=== PATIENT | male | born 1940 | race American Indian/Alaskan Native ===

== ENCOUNTER 2017-04-09 21:33 | Emergency (ER) | payer MEDICARE ==
[2017-04-09 21:51] VITALS: BP 147/81
--- NOTE | 2017-04-09 23:23 | Cat Scan Report ---
FINAL REPORT PROCEDURE: CT HEAD/BRAIN WO CON TECHNIQUE: Computerized tomography of the head was performed without contrast material. HISTORY: Syncope COMPARISON: No prior studies are available for comparison. FINDINGS: Skull and scalp: Left frontal matilda hole with ventriculostomy shunt catheter. There is occipital craniotomy. Paranasal sinuses: Normal. Ventricles and subarachnoid spaces: Moderate dilatation. Ventriculostomy shunt. Cerebrum: No evidence of hemorrhage, acute infarction or mass. Atrophy. Periventricular diminished density. Diminished density in the left frontal lobe surrounding shunt catheter. Basal ganglia calcifications Cerebellum and brainstem: Postoperative changes. There is calcification with adjacent 2.1 cm nodular region. Vasculature: Atherosclerotic calcifications. Comments: There is chronic right medial orbital blowout fracture through the lamina papyracea. IMPRESSION: Postoperative change. There is calcification and nodular density with possible residual or recurrent mass at the cerebellum. Correlation with prior studies and/or contrast enhanced MRI or CT recommended for further evaluation
--- NOTE | 2017-04-09 23:27 | Cat Scan Report ---
FINAL REPORT PROCEDURE: CT CERVICAL SPINE WO CON TECHNIQUE: Computerized tomography of the cervical spine was performed from the skull base to T1 without contrast material. HISTORY: fall/+loc/hematoma COMPARISON: No prior studies are available for comparison. FINDINGS: There is occipital craniotomy. There is postoperative change of the posterior arch of C1. There reversal of the cervical lordosis. There is grade 1 anterior listhesis at C7-T1. There is no acute fracture. C1-2: Arthritic change with spurring. C2-3: Disc bulge and spurring. Mild facet spurring. C3-4: Disc bulge and spurring.. C4-5: Disc space narrowing. Disc bulge and spurring. Uncovertebral spurring with left foraminal narrowing.. C5-6: Disc space narrowing with endplate change. Disc bulge and spurring. Uncovertebral spurring with bilateral foraminal narrowing. C6-7: Disc space narrowing with endplate change. Disc bulge and spurring. Uncovertebral spurring with bilateral foraminal narrowing. C7-T1: Disc space narrowing. Facet spurring. Bilateral foraminal narrowing. Other: Multiple thyroid nodules including with calcification. Atherosclerotic calcifications. Catheter in the soft tissues on the left. IMPRESSION: Cervical spondylosis. No acute fracture seen.
--- NOTE | 2017-04-09 23:37 | Cat Scan Report ---
FINAL REPORT PROCEDURE: CT FACIAL BONES WO CON TECHNIQUE: Computerized tomography of the facial bones and soft tissues with axial and coronal sections performed from the cranial aspect of the frontal sinuses to the caudal portion of the mandible without contrast material. HISTORY: fall/+loc/hematoma COMPARISON: No prior studies are available for comparison. FINDINGS: Bones: No acute fracture. Chronic appearing fracture of the medial wall of the right maxillary sinus through the lamina papyracea. Zygomatic arches are intact. Mandible is intact. Nasal bones intact.. Paranasal sinuses: Clear. Soft tissues: Frontal soft tissue swelling.. Other: None. IMPRESSION: No acute fracture. Chronic appearing medial orbital blowout fracture on the right. Soft tissue swelling.
--- NOTE | 2017-04-09 23:48 | Emergency Department Report ---
ED Fall HPI - General Chief Complaint: Head Injury Stated Complaint: LACERATION TO FACE Time Seen by Provider: 04/09/17 23:26 Source: patient, EMS Mode of arrival: Ambulatory - History of Present Illness Initial Comments: Patient is 76 years old male came for evaluation after he tripped and fell and hit his head ,patient denied any loss of consciousness complaining of forehead abrasion and nose pain. He denied any numbness or tingling sensation or focal weakness. No bowel or bladder dysfunction. MD Complaint: fall -: Sudden Fall From: standing Fall Witnessed: yes, by family Place Fall Occurred: home Loss of Consciousness: none Prolonged Down Time?: no Symptoms Prior to Fall: none Location: head, face Severity: moderate - Related Data Previous Rx's Medication Instructions Recorded Last Taken Type Cephalexin [Keflex] 500 mg PO BID #14 capsule 07/23/14 Unknown Rx Allergies Allergy/AdvReac Type Severity Reaction Status Date / Time No Known Allergies Allergy Unverified 07/22/14 23:26 ED Review of Systems ROS: Stated complaint: LACERATION TO FACE Other details as noted in HPI Comment: All other systems reviewed and negative Constitutional: denies: chills, fever Respiratory: denies: cough, orthopnea Cardiovascular: denies: chest pain, palpitations, syncope Gastrointestinal: denies: abdominal pain, nausea, vomiting, diarrhea, constipation, hematemesis ED Past Medical Hx - Past Medical History Previous Medical History?: Yes 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 - Surgical History Past Surgical History?: Yes Additional Surgical History: shunt in brain - Social History Smoking Status: Never Smoker Substance Use Type: None - Medications Home Medications: Home Medications Medication Instructions Recorded Confirmed Last Taken Type Cephalexin [Keflex] 500 mg PO BID #14 capsule 07/23/14 Unknown Rx ED Physical Exam - General Limitations: No Limitations General appearance: alert, in no apparent distress - Head Head exam: Present: other (abrasion to the forehead, 0.3 cm laceration to the middle of the nose.) - Eye Eye exam: Present: normal appearance, PERRL - ENT ENT exam: Present: normal exam - Neck Neck exam: Present: normal inspection, full ROM. Absent: tenderness, meningismus, lymphadenopathy, thyromegaly - Respiratory Respiratory exam: Present: normal lung sounds bilaterally. Absent: respiratory distress, wheezes, rales, rhonchi, stridor, chest wall tenderness, accessory muscle use, decreased breath sounds, prolonged expiratory - Cardiovascular Cardiovascular Exam: Present: regular rate, normal rhythm, normal heart sounds - GI/Abdominal GI/Abdominal exam: Present: soft, normal bowel sounds. Absent: distended, tenderness, guarding, rebound, rigid, diminished bowel sounds, organomegaly, mass, bruit, pulsatile mass, hernia - Extremities Exam Extremities exam: Present: normal inspection, full ROM, normal capillary refill. Absent: tenderness - Back Exam Back exam: Present: normal inspection, full ROM. Absent: tenderness, CVA tenderness (R), CVA tenderness (L), muscle spasm, paraspinal tenderness, vertebral tenderness - Neurological Exam Neurological exam: Present: alert, oriented X3, CN II-XII intact, normal gait, reflexes normal - Skin Skin exam: Present: warm, intact, normal color. Absent: cyanosis ED Course Vital Signs 04/09/17 04/09/17 21:43 22:00 Temperature 97.5 F L Pulse Rate 76 Respiratory 15 15 Rate Blood Pressure 147/81 O2 Sat by Pulse 97 99 Oximetry - Reevaluation(s) Reevaluation #1: 04/09/17 23:48 Patient is walking around in the ER in no acute distress. Critical care attestation.: If time is entered above; I have spent that time in minutes in the direct care of this critically ill patient, excluding procedure time. ED Disposition Clinical Impression: Head injury, Acute neck sprain Disposition: DC-01 TO HOME OR SELFCARE Is pt being admited?: No Condition: Stable Instructions: Minor Head Injury (ED), Fall Prevention (ED)
== END 2017-04-10 | disposition home or self-care (01) ==
LOC: ED 21:33
DX: S13.9XXA Sprain of joints and ligaments of unspecified parts of neck, initial encounter (principal); S09.90XA Unspecified injury of head, initial encounter; Z98.890 Other specified postprocedural states; W01.10XA Fall on same level from slipping, tripping and stumbling with subsequent striking against unspecified object, initial encounter; Y93.89 Activity, other specified; Y99.8 Other external cause status; Y92.098 Other place in other non-institutional residence as the place of occurrence of the external cause
CPT/HCPCS: 70450; 70486; 72125

== ENCOUNTER 2018-08-08 16:13 | Outpatient (CLI) | payer MEDICARE ==
[2018-08-08 17:04] LABS: Hematocrit 41.7 % (35.5-45.6); Hemoglobin 13.8 gm/dl (11.8-15.2); Mean Corpuscular HGB Conc 33 % (32-34); Mean Corpuscular Volume 92 fl (84-94); Platelet Count 159 K/mm3 (140-440); Red Blood Count 4.54 M/mm3 (3.65-5.03); Red Cell Distribution Width 13.2 % (13.2-15.2)
[2018-08-08 17:16] LABS: Alanine Aminotransferase 12 units/L (7-56); Albumin 4.2 g/dL (3.9-5); BUN/Creatinine Ratio 11; Blood Urea Nitrogen 11 mg/dL (9-20); Calcium 9.1 mg/dL (8.4-10.2); Chol/HDL Ratio 2.13 %; HDL Cholesterol 65 mg/dL (40-59); Hemolysis Index 6; LDL Cholesterol,Direct 83 mg/dL (50-130)
== END 2018-08-08 16:14 | disposition home or self-care (01) ==
LOC: LAB 16:13
PROVIDERS: ATTEND Internal Medicine
DX: Z00.01 Encounter for general adult medical examination with abnormal findings (principal); R73.9 Hyperglycemia, unspecified; R39.11 Hesitancy of micturition; R53.1 Weakness; R79.89 Other specified abnormal findings of blood chemistry
CPT/HCPCS: 36415; 80053; 80061; 82306; 82607; 83036; 84153; 84443; 85027

== ENCOUNTER 2019-02-24 19:59 | Emergency (ER) | payer MEDICARE ==
--- NOTE | 2019-02-24 20:33 | Emergency Department Report ---
Blank Doc - Documentation Documentation: 78-year-old male that presents with headache and dizziness with hx of [employer] shunt. Denies any trauma. This initial assessment/diagnostic orders/clinical plan/treatment(s) is/are subject to change based on patient's health status, clinical progression and re- assessment by fellow clinical providers in the ED. Further treatment and workup at subsequent clinical providers discretion. Patient/guardians urged not to elope from the ED as their condition may be serious if not clinically assessed and managed. Initial orders include: 1- Patient sent to MAIN ED for further evaluation and treatment 2- labs 3- CT head
[2019-02-24 20:34] VITALS: BP 117/78
[2019-02-24 21:00] LABS: Basophils % (Auto) 0.5 % (0.0-1.8); Eosinophils # (Auto) 0.1 K/mm3 (0.0-0.4); Eosinophils % (Auto) 1.5 % (0.0-4.3); Hematocrit 41.1 % (35.5-45.6); Hemoglobin 13.6 gm/dl (11.8-15.2); Lymphocytes % (Auto) 18.3 % (13.4-35.0); Mean Corpuscular HGB Conc 33 % (32-34); Mean Corpuscular Volume 91 fl (84-94); Monocytes # (Auto) 0.5 K/mm3 (0.0-0.8); Monocytes % (Auto) 9.6 % (0.0-7.3); Platelet Count 156 K/mm3 (140-440); Red Blood Count 4.53 M/mm3 (3.65-5.03); Red Cell Distribution Width 14.4 % (13.2-15.2)
[2019-02-24 21:24] LABS: Alanine Aminotransferase 15 units/L (7-56); BUN/Creatinine Ratio 16; Blood Urea Nitrogen 14 mg/dL (9-20); Calcium 9.1 mg/dL (8.4-10.2); Hemolysis Index 7
--- NOTE | 2019-02-24 22:18 | Cat Scan Report ---
CT HEAD WITHOUT CONTRAST INDICATION: headache and dizziness with hx of TENTERING MACHINE OFF BEARER shunt TECHNIQUE: Axial slices were obtained through the head. Coronal and sagittal reformatted images were obtained. COMPARISON: CT scan dated 04/09/2017 FINDINGS: There is no intracranial hemorrhage or extra-axial fluid collection. Ventricles appear mildly decreas ed in size when compared to the prior study from 2017 are normal in size and position on today's stud y. Ventriculostomy catheter is centrally unchanged. Calcifications in both basal ganglia are unchange d. There is no mass lesion or midline shift. No acute territorial infarct is identified. The appearan ce of the cerebellum with calcifications noted appears stable in the interval. There is a small area of encephalomalacia. Changes of prior posterior craniotomy Bone windows demonstrate no acute osseous abnormality. Paranasal sinuses and mastoid air cells appear clear. TECHNIQUE: All CT scans at this facility use dose modulation, iterative reconstruction, automated ex posure control, weight based dosing, when appropriate, to reduce radiation dose to as low as reasonab ly achievable. IMPRESSION: 1. No acute intracranial abnormality. TENTERING MACHINE OFF BEARER shunt catheter appears unchanged. Ventricular size size appe ars normal and mildly decreased from the prior study. Postoperative changes are noted in the cerebell um. Not mentioned above, There is again noted some irregular soft tissue in the midline of the posterior cerebellum. This may be related to the prior surgery. Possibility of residual nodule or mass in this location is considered in general this area appears decreased in size compared to the prior study. Signer Name: Bakari Godinez MD Signed: 02/24/2019 10:14 PM Workstation Name: [id number]
[2019-02-24] MEDS ORDERED: REGLAN PO ONE (22:23)
--- NOTE | 2019-02-24 22:26 | Emergency Department Report ---
ED General Adult HPI - General Chief complaint: Headache Stated complaint: HEADACHE Time Seen by Provider: 02/24/19 20:30 Source: patient, RN notes reviewed, old records reviewed Mode of arrival: Ambulatory Limitations: No Limitations - History of Present Illness Initial comments: This is a pleasant 78-year-old gentleman. This patient is not known to this provider previously. He has a history of BUSINESS PARTNER shunt. His BUSINESS PARTNER shunt was revised in August of this year, at [facility]. He does not know who did the surgery. He does not have a local primary care doctor. He presents to the ER with a complaint of headache and dizziness. The headache is occipital, and midline. It is present for over 24 hours. The headache is not sudden or thunderclap in nature. The headache is not maximal in intensity. He also describes a sensation of dizziness. He describes the dizziness as feeling unsteady. He denies vomiting, neck pain, neck stiffness and additional pain. He has no ocular complaints at this time. -: Gradual Location: head Radiation: non-radiation Quality: aching Consistency: intermittent Improves with: none Worsens with: none - Related Data Previous Rx's Medication Instructions Recorded Last Taken Type cephALEXin [Keflex] 500 mg PO BID #14 capsule 07/23/14 Unknown Rx Acetaminophen [Non-Aspirin Extra 500 mg PO Q6HR PRN #30 tablet 02/24/19 Unknown Rx Strength] Metoclopramide [Reglan] 10 mg PO QID PRN #30 tablet 02/24/19 Unknown Rx Allergies Allergy/AdvReac Type Severity Reaction Status Date / Time No Known Allergies Allergy Verified 02/24/19 20:01 ED Review of Systems ROS: Stated complaint: HEADACHE Other details as noted in HPI Constitutional: denies: malaise Eyes: denies: eye discharge, vision change ENT: denies: dental pain Respiratory: denies: wheezing Cardiovascular: denies: chest pain, syncope Gastrointestinal: denies: abdominal pain Neurological: headache. denies: weakness, numbness, paresthesias, confusion ED Past Medical Hx - Past Medical History Previous Medical History?: Yes 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 - Surgical History Past Surgical History?: Yes Additional Surgical History: shunt in brain - Social History Smoking Status: Never Smoker - Medications Home Medications: Home Medications Medication Instructions Recorded Confirmed Last Taken Type cephALEXin [Keflex] 500 mg PO BID #14 capsule 07/23/14 Unknown Rx Acetaminophen [Non-Aspirin Extra 500 mg PO Q6HR PRN #30 tablet 02/24/19 Unknown Rx Strength] Metoclopramide [Reglan] 10 mg PO QID PRN #30 tablet 02/24/19 Unknown Rx ED Physical Exam - General Limitations: No Limitations General appearance: alert, in no apparent distress - Head Head exam: Present: atraumatic, normocephalic - Eye Eye exam: Present: normal appearance, PERRL, EOMI, other (visual acuity intact to finger counting, color perception, reading at a close distance). Absent: nystagmus - ENT ENT exam: Present: normal exam, normal orophraynx, mucous membranes moist, normal external ear exam - Neck Neck exam: Present: normal inspection, full ROM. Absent: tenderness, meningismus - Respiratory Respiratory exam: Present: normal lung sounds bilaterally. Absent: respiratory distress - Cardiovascular Cardiovascular Exam: Present: regular rate, normal rhythm, normal heart sounds. Absent: bradycardia, tachycardia, irregular rhythm, systolic murmur, diastolic murmur, rubs, gallop - GI/Abdominal GI/Abdominal exam: Present: soft. Absent: distended, tenderness, guarding, rebound, rigid, pulsatile mass - Rectal Rectal exam: Present: deferred - Extremities Exam Extremities exam: Present: normal inspection, full ROM, other (2+ pulses noted in the bilateral upper, lower extremities. There is no long bone tenderness. Musculoskeletal compartments are soft. The pelvis is stable.). Absent: pedal edema, calf tenderness - Back Exam Back exam: Present: normal inspection, full ROM. Absent: tenderness, CVA tenderness (R), CVA tenderness (L), paraspinal tenderness, vertebral tenderness - Neurological Exam Neurological exam: Present: alert, oriented X3, normal gait (there is no past-pointing. There is normal [id number]. There is a negative pronator drift. There is normal gait. Patient able to tandem gait. There is a negative Romberg examination), other (there is no facial droop. The tongue is midline. Extraocular movements are intact bilaterally. Patient speaking in full com plete sentences. Shoulder shrug is intact bilaterally. Hearing is grossly intact bilaterally. Visual acuity intact to finger counting and color perception at a close distance. 5/5 strength 4 extremities. Sensation intact to light touch in 4 extremities.). Absent: motor sensory deficit - Psychiatric Psychiatric exam: Present: normal affect, normal mood - Skin Skin exam: Present: warm, dry, intact, normal color. Absent: rash ED Course Vital Signs 02/24/19 20:16 Temperature 97.9 F Pulse Rate 89 Respiratory 16 Rate Blood Pressure 117/78 O2 Sat by Pulse 100 Oximetry - Reevaluation(s) Reevaluation #1: 02/24/19 23:01 X-ray appears to be unremarkable. Sent appears to be in appropriate position. Patient is standing up, appears quite steady, and does not appear to be in any acute distress at this time. Reevaluation #2: 02/24/19 23:08 Old medical records are reviewed and appreciated. It appears that the patient's physician was Dr. Matti Ayala Apparently, he had an exploration of the proximal and distal shunt components. Reportedly, he is a patient of Dr. Bala Luong. 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 A right frontal BUSINESS PARTNER shunt was placed at an outside facility. He has been followed by Dr. Luong in the clinic and over the last months had been complaining of dizziness, mild headache and gait imbalance. A nuclear medicine shunt study was performed and showed probable sluggish flow within the distal shunt catheter, indicating a possible distal catheter malfunction. Patient declined surgery at that point. However, he subsequently return to the hospital over the weekend, a complaint of symptoms that were slightly worse. Imaging revealed stable ventricular size. At that point in time, the neurosurgeon of record had recommended shunt exploration and revision. With this in mind, the patient will be strongly counseled to follow up with his outpatient neurosurgeon for repeat evaluation. He walks with a steady gait, his exam is unremarkable, he is protecting his airway, and he is hemodynamically stable. Patient medically suitable to follow-up and an expedited fashion with his outpatient neurosurgeon. Reevaluation #3: 02/24/19 23:12 The patient reports that he feels much improved. He states he will follow-up with his neurosurgeon. X-ray appears to be unremarkable. ED Medical Decision Making - Lab Data Result diagrams: 02/24/19 20:37 02/24/19 20:37 Vital Signs 02/24/19 20:16 Temperature 97.9 F Pulse Rate 89 Respiratory 16 Rate Blood Pressure 117/78 O2 Sat by Pulse 100 Oximetry Lab Results 02/24/19 02/24/19 Range/Units 20:37 20:37 WBC 5.4 (4.5-11.0) K/mm3 RBC 4.53 (3.65-5.03) M/mm3 Hgb 13.6 (11.8-15.2) gm/dl Hct 41.1 (35.5-45.6) % MCV 91 (84-94) fl MCH 30 (28-32) pg MCHC 33 (32-34) % RDW 14.4 (13.2-15.2) % Plt Count 156 (140-440) K/mm3 Lymph % (Auto) 18.3 (13.4-35.0) % [place] % (Auto) 9.6 H (0.0-7.3) % Eos % (Auto) 1.5 (0.0-4.3) % Baso % (Auto) 0.5 (0.0-1.8) % Lymph # 1.0 L (1.2-5.4) K/mm3 [place] # 0.5 (0.0-0.8) K/mm3 Eos # 0.1 (0.0-0.4) K/mm3 Baso # 0.0 (0.0-0.1) K/mm3 Seg Neutrophils % 70.1 H (40.0-70.0) % Seg Neutrophils # 3.8 (1.8-7.7) K/mm3 Sodium 140 (137-145) mmol/L Potassium 4.3 (3.6-5.0) mmol/L Chloride 103.2 (98-107) mmol/L Carbon Dioxide 25 (22-30) mmol/L Anion Gap 16 mmol/L BUN 14 (9-20) mg/dL Creatinine 0.9 (0.8-1.5) mg/dL Estimated GFR > 60 ml/min BUN/Creatinine Ratio 16 % Glucose 94 (75-100) mg/dL Calcium 9.1 (8.4-10.2) mg/dL Total Bilirubin 0.40 (0.1-1.2) mg/dL AST 17 (5-40) units/L ALT 15 (7-56) units/L Alkaline Phosphatase 53 (35-129) units/L Troponin T < 0.010 (0.00-0.029) ng/mL Total Protein 7.2 (6.3-8.2) g/dL Albumin 4.0 (3.9-5) g/dL Albumin/Globulin Ratio 1.3 % - EKG Data -: EKG Interpreted by Fl EKG shows normal: sinus rhythm Rate: normal - EKG Data 02/24/19 22:31 EKG shows a sinus rhythm, 64 bpm, AL interval prolonged at 202 ms, there is left ventricular hypertrophy, there is poor all progression, the EKG is abnormal, the EKG is not consistent with ST elevation myocardial infarction. - Radiology Data Radiology results: pending, report reviewed, image reviewed Noncontrast CT scan of the brain is negative for acute disease, shows chronic findings. Print Report Referring Physician: YENI OREILLY Patient Name: ABBY DEVLIN Date of : 1940 Sex: Male Report Date: 2019-02-24 Report Status: Finalized Findings [facility] [address] [place] [address] Cat Scan Report Signed Patient: ABBY DEVLIN MR#: [id number] : 1940 Acct:[id number] Age/Sex: 78 / M ADM Date: 02/24/19 Loc: ED Attending Dr: Ordering Physician: YENI OREILLY NP Date of Service: 02/24/19 Procedure(s): CT head/brain wo con Accession Number(s): [id number] cc: YENI OREILLY NP CT HEAD WITHOUT CONTRAST INDICATION: headache and dizziness with hx of BUSINESS PARTNER shunt TECHNIQUE: Axial slices were obtained through the head. Coronal and sagittal reformatted images were obtained. COMPARISON: CT scan dated 04/09/2017 FINDINGS: There is no intracranial hemorrhage or extra-axial fluid collection. Ventricles appear mildly decreased in size when compared to the prior study from 2017 are normal in size and position on today's study. Ventriculostomy catheter is centrally unchanged. Calcifications in both basal ganglia are unchanged. There is no mass lesion or midline shift. No acute territorial infarct is identified. The appearance of the cerebellum with calcifications noted appears stable in the interval. There is a small area of encephalomalacia. Changes of prior posterior craniotomy Bone windows demonstrate no acute osseous abnormality. Paranasal sinuses and mastoid air cells appear clear. TECHNIQUE: All CT scans at this facility use dose modulation, iterative reconstruction, automated exposure control, weight based dosing, when appropriate, to reduce radiation dose to as low as reasonably achievable. IMPRESSION: 1. No acute intracranial abnormality. BUSINESS PARTNER shunt catheter appears unchanged. Ventricular size size appears normal and mildly decreased from the prior study. Postoperative changes are noted in the cerebellum. Not mentioned above, There is again noted some irregular soft tissue in the midline of the posterior cerebellum. This may be related to the prior surgery. Possibility of residual nodule or mass in this location is considered in general this area appears decreased in size compared to the prior study. Signer Name: Bakari Godinez MD Signed: 02/24/2019 10:14 PM Workstation Name: [id number] Transcribed By: SS Dictated By: Bakari Godinez MD Electronically Authenticated By: Bakari Godinez MD Signed Date/Time: 02/24/192213 DD/ 05 TD/TT: - Medical Decision Making Differential diagnosis, including but not limited to: Migraine headache, tension headache, cluster headache, BUSINESS PARTNER shunt malfunction, intracranial lesion Assessment and plan: 78-year-old gentleman with complaint of mild headache and subjective dizziness. He is afebrile with reassuring vital signs. He walks with a steady gait. He has no posterior circulation abnormalities that we can detect on physical examination. A noncontrast CT scan of the brain shows no acute or emergent findings. There is no evidence of obstructed BUSINESS PARTNER catheter. Screening laboratory studies are reviewed and appreciated, EKG is reviewed and appreciated. The patient is strongly encouraged to obtain expedited outpatient follow-up with his neurology specialist at [place]. Critical care attestation.: If time is entered above; I have spent that time in minutes in the direct care of this critically ill patient, excluding procedure time. ED Disposition Clinical Impression: BUSINESS PARTNER (ventriculoperitoneal) shunt status Headache Qualifiers: Headache type: unspecified Headache chronicity pattern: unspecified pattern Intractability: not intractable Qualified Code(s): R51 - Headache Disposition: DC-01 TO HOME OR SELFCARE Is pt being admited?: No Does the pt Need Aspirin: No Condition: Stable Additional Instructions: Continue outpatient medications. Recommend following up with your outpatient neurosurgeon as soon as possible at [facility]. Return to an emergency room right away with projectile vomiting, change in mental status, confusion, inability to tolerate liquid feeds, new, worsened or different symptoms not present on the initial emergency room evaluation. Patient may take the prescribed medications as needed and directed for sensation of headache and/or nausea, vomiting. Prescriptions: Acetaminophen [Non-Aspirin Extra Strength] 500 mg PO Q6HR PRN #30 tablet PRN Reason: Pain , Severe (7-10) Metoclopramide [Reglan] 10 mg PO QID PRN #30 tablet PRN Reason: Headache Referrals: MAGEN GUERRERO MD [Staff Physician] - 3-5 Days DORIE SARKAR MD [Staff Physician] - 3-5 Days
--- NOTE | 2019-02-24 23:12 | XRay Report ---
CHEST 1 VIEW INDICATION / CLINICAL INFORMATION: second vp hr assessment shunt assess position. COMPARISON: None available. FINDINGS: SUPPORT DEVICES: None. HEART / MEDIASTINUM: No significant abnormality. LUNGS / PLEURA: No acute cardiopulmonary abnormality. The left-sided ENVIR[employer]MENT[employer] DESIGNER shunt projects over the left hemithorax. No disruption appreciated. Signer Name: Moreno Diaz MD Signed: 02/24/2019 11:07 PM Workstation Name: [id number]
--- NOTE | 2019-02-24 23:14 | XRay Report ---
Abdomen single view INDICATION: Abdominal pain IMPRESSION: The AUDIOVISUAL TECH shunt terminates near the region of the esophageal hiatus within the far upper abd omen. Signer Name: Moreno Diaz MD Signed: 02/24/2019 11:09 PM Workstation Name: [id number]
== END 2019-02-24 23:18 | disposition home or self-care (01) ==
LOC: ED 19:59
DX: R51 Headache (principal); R42 Dizziness and giddiness; Z98.2 Presence of cerebrospinal fluid drainage device
CPT/HCPCS: 36415; 70450; 71045; 74018; 80053; 84484; 85025; 93005; 93010

== ENCOUNTER 2019-09-12 16:49 | Emergency (ER) | payer MEDICARE ==
--- NOTE | 2019-09-12 17:35 | XRay Report ---
Chest 2 views INDICATION: Dyspnea IMPRESSION: No acute cardiopulmonary abnormality. 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 Signer Name: Moreno Diaz MD Signed: 09/12/2019 5:30 PM Workstation Name: [id number]
[2019-09-12 17:44] LABS: Basophils # (Auto) 0.1 K/mm3 (0.0-0.1); Basophils % (Auto) 1.4 % (0.0-1.8); Eosinophils # (Auto) 0.1 K/mm3 (0.0-0.4); Eosinophils % (Auto) 1.9 % (0.0-4.3); Hematocrit 43.7 % (35.5-45.6); Hemoglobin 14.3 gm/dl (11.8-15.2); Lymphocytes % (Auto) 22.8 % (13.4-35.0); Mean Corpuscular HGB Conc 33 % (32-34); Mean Corpuscular Volume 92 fl (84-94); Monocytes # (Auto) 0.3 K/mm3 (0.0-0.8); Monocytes % (Auto) 7.5 % (0.0-7.3); Platelet Count 154 K/mm3 (140-440); Red Blood Count 4.75 M/mm3 (3.65-5.03); Red Cell Distribution Width 13.6 % (13.2-15.2)
[2019-09-12 18:04] LABS: Alanine Aminotransferase 13 units/L (7-56); Albumin 4.2 g/dL (3.9-5); BUN/Creatinine Ratio 12; Blood Urea Nitrogen 11 mg/dL (9-20); Calcium 9.7 mg/dL (8.4-10.2); Hemolysis Index 10
--- NOTE | 2019-09-12 19:26 | Emergency Department Report ---
ED General Adult HPI - General Chief complaint: Dyspnea/Respdistress Stated complaint: FEVER/CHEST TIGHT/DISORIENTED Time Seen by Provider: 09/12/19 18:17 Source: patient Mode of arrival: Ambulatory Limitations: No Limitations - History of Present Illness Initial comments: Patient is a 78-year-old male who presents the emergency room with complaints of "concerns about COVID-19." He states this morning when he woke up he felt fatigue and some mild chest congestion. He states he believes he is just having some mild symptoms. He denies any fever, nausea, vomiting, diarrhea, chest pain, shortness of breath, leg swelling. He denies any recent travel, recent surgery, sick contacts. He states that he feels asymptomatic currently and feels much better than he did this morning. 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 He denies any issues with his [employer] shunt. He denies any allergies to medications. He is a former smoker and quit in 1982. - Related Data Previous Rx's Medication Instructions Recorded Last Taken Type cephALEXin [Keflex] 500 mg PO BID #14 capsule 07/23/14 Unknown Rx Acetaminophen [Non-Aspirin Extra 500 mg PO Q6HR PRN #30 tablet 02/24/19 Unknown Rx Strength] Metoclopramide [Reglan] 10 mg PO QID PRN #30 tablet 02/24/19 Unknown Rx Allergies Allergy/AdvReac Type Severity Reaction Status Date / Time No Known Allergies Allergy Verified 09/12/19 17:00 ED Review of Systems ROS: Stated complaint: FEVER/CHEST TIGHT/DISORIENTED Other details as noted in HPI Comment: All other systems reviewed and negative ED Past Medical Hx - Past Medical History Previous Medical History?: Yes 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 - Surgical History Past Surgical History?: Yes Additional Surgical History: shunt in brain - Social History Smoking Status: Never Smoker Substance Use Type: None - Medications Home Medications: Home Medications Medication Instructions Recorded Confirmed Last Taken Type cephALEXin [Keflex] 500 mg PO BID #14 capsule 07/23/14 Unknown Rx Acetaminophen [Non-Aspirin Extra 500 mg PO Q6HR PRN #30 tablet 02/24/19 Unknown Rx Strength] Metoclopramide [Reglan] 10 mg PO QID PRN #30 tablet 02/24/19 Unknown Rx ED Physical Exam - General Limitations: No Limitations General appearance: alert, in no apparent distress - Head Head exam: Present: atraumatic, normocephalic - Eye Eye exam: Present: normal appearance - ENT ENT exam: Present: mucous membranes moist - Respiratory Respiratory exam: Present: normal lung sounds bilaterally. Absent: respiratory distress, wheezes, rales, rhonchi, stridor, chest wall tenderness, accessory muscle use, decreased breath sounds, prolonged expiratory - Cardiovascular Cardiovascular Exam: Present: regular rate, normal rhythm, normal heart sounds. Absent: systolic murmur, diastolic murmur, rubs, gallop - Neurological Exam Neurological exam: Present: alert, oriented X3 - Psychiatric Psychiatric exam: Present: normal affect, normal mood - Skin Skin exam: Present: warm, dry, intact ED Course Vital Signs 09/12/19 09/12/19 17:00 19:51 Temperature 97.7 F 97.5 F L Pulse Rate 73 69 Respiratory 13 18 Rate Blood Pressure 124/76 Blood Pressure 129/67 [Right] O2 Sat by Pulse 100 99 Oximetry ED Medical Decision Making - Lab Data Result diagrams: 09/12/19 17:25 09/12/19 17:25 - Radiology Data Radiology results: report reviewed Chest 2 views INDICATION: Dyspnea IMPRESSION: No acute cardiopulmonary abnormality. [employer] shunt noted tracking along the left chest region. Signer Name: Moreno Diaz MD Signed: 09/12/2019 5:30 PM Workstation Name: [id number] Transcribed By: Dictated By: Moreno Diaz MD Electronically Authenticated By: Moreno Diaz MD Signed Date/Time: 09/12/191729 DD/ 29 TD/TT: - Medical Decision Making Patient is a 78-year-old male who presents the emergency room with complaints of "concerns about COVID-19." He states this morning when he woke up he felt fatigue and some mild chest congestion. He states he believes he is just having some mild symptoms. He denies any fever, nausea, vomiting, diarrhea, chest pain, shortness of breath, leg swelling. He denies any recent travel, recent surgery, sick contacts. He states that he feels asymptomatic currently and feels much better than he did this morning. 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 He denies any issues with his [employer] shunt. He denies any allergies to medications. He is a former smoker and quit in 1982. Vitals are normal. Patient was ambulated in the emergency department and maintain sats above 95% on room air. No abnormality on physical examination as documented in chart. Breath sounds are clear bilaterally. Labs are more normal. Chest x-ray with no acute process. Low risk based on Wells criteria for PE. advised pt May take Robitussin or M ucinex as needed for congestion. Increase your fluid intake over the next several days. May drink warm tea and eat warm soup broth. Follow-up with your primary care doctor in the next 2 to 3 days for reexamination. Return to the emergency room immediately or call 911 for any new or worsening symptoms including but not limited to chest pain, shortness of breath, difficulty breathing, high fever, unable to tolerate by mouth intake, confusion, dizziness, etc. please discuss with your primary care doctor about receiving COVID-19 testing. Please self quarantine for 2 weeks. Please do not go out in public. If you are at home around others please wear a mask. If you need to cough or sneeze please do so in a napkin and throw it away and immediately wash your hands. Wash your hands frequently. Wipe everything down. Critical care attestation.: If time is entered above; I have spent that time in minutes in the direct care of this critically ill patient, excluding procedure time. ED Disposition Clinical Impression: Chest congestion Fatigue Qualifiers: Fatigue type: unspecified Qualified Code(s): R53.83 - Other fatigue Disposition: DC-01 TO HOME OR SELFCARE Is pt being admited?: No Does the pt Need Aspirin: No Condition: Stable Instructions: COVID-19, Viral Syndrome (ED) Additional Instructions: May take Robitussin or Mucinex as needed for congestion. Increase your fluid intake over the next several days. May drink warm tea and eat warm soup broth. Follow-up with your primary care doctor in the next 2 to 3 days for reexamination. Return to the emergency room immediately or call 911 for any new or worsening symptoms including but not limited to chest pain, shortness of molly ath, difficulty breathing, high fever, unable to tolerate by mouth intake, confusion, dizziness, etc. please discuss with your primary care doctor about receiving COVID-19 testing. Please self quarantine for 2 weeks. Please do not go out in public. If you are at home around others please wear a mask. If you need to cough or sneeze please do so in a napkin and throw it away and immediately wash your hands. Wash your hands frequently. Wipe everything down. Referrals: TRISHA OSMAN MD [Primary Care Provider] - 2-3 Days Time of Disposition: 19:24 Print Language: EQUATORIAL GUINEAN
[2019-09-12 19:52] VITALS: BP 129/67
== END 2019-09-12 19:52 | disposition home or self-care (01) ==
LOC: ED 16:49
DX: R09.81 Nasal congestion (principal); R53.83 Other fatigue; Z79.899 Other long term (current) drug therapy
CPT/HCPCS: 36415; 71046; 80053; 85025

== ENCOUNTER 2020-06-16 11:39 | Outpatient (CLI) | payer MEDICARE ==
[2020-06-16 12:12] LABS: Basophils % (Auto) 0.8 % (0.0-1.8); Eosinophils # (Auto) 0.1 K/mm3 (0.0-0.4); Eosinophils % (Auto) 2.3 % (0.0-4.3); Hematocrit 40.3 % (35.5-45.6); Hemoglobin 13.3 gm/dl (11.8-15.2); Lymphocytes % (Auto) 23.2 % (13.4-35.0); Mean Corpuscular HGB Conc 33 % (32-34); Mean Corpuscular Volume 93 fl (84-94); Monocytes # (Auto) 0.4 K/mm3 (0.0-0.8); Monocytes % (Auto) 10.6 % (0.0-7.3); Platelet Count 155 K/mm3 (140-440); Red Blood Count 4.35 M/mm3 (3.65-5.03); Red Cell Distribution Width 13.5 % (13.2-15.2)
[2020-06-16 12:35] LABS: Alanine Aminotransferase 11 units/L (7-56); Albumin 3.9 g/dL (3.9-5); BUN/Creatinine Ratio 14; Blood Urea Nitrogen 11 mg/dL (9-20); HDL Cholesterol 65 mg/dL (40-59); Hemolysis Index 5; LDL Cholesterol,Direct 75 mg/dL (50-130)
== END 2020-06-16 11:40 | disposition home or self-care (01) ==
LOC: LAB 11:39
PROVIDERS: ATTEND Internal Medicine
DX: E55.9 Vitamin D deficiency, unspecified (principal); R73.9 Hyperglycemia, unspecified; Z13.29 Encounter for screening for other suspected endocrine disorder; Z13.220 Encounter for screening for lipoid disorders; E07.9 Disorder of thyroid, unspecified; E78.5 Hyperlipidemia, unspecified
CPT/HCPCS: 36415; 80053; 80061; 82652; 83036; 84443; 85025

== ENCOUNTER 2021-06-05 20:16 | Inpatient (IN) | payer MEDICARE ==
[2021-06-05] MEDS ORDERED: levETIRAcetam 2,000 MG in DEXTROSE 5% IN WATER 100 ML IV ONE (20:21)
[2021-06-05] MEDS ORDERED: SODIUM CHLORIDE 0.9% 500 ML 500 ML IV ONE (20:21)
--- NOTE | 2021-06-05 21:00 | Cat Scan Report ---
CT head/brain wo con INDICATION / CLINICAL INFORMATION: 80 years Male; Stroke symptoms. TECHNIQUE: Routine CT head without contrast. All CT scans at this location are performed using CT dos e reduction for ALARA by means of automated exposure control. Motion artifact present. COMPARISON: 02/24/2019 FINDINGS: BRAIN / INTRACRANIAL CONTENTS: Ventricular catheter is seen entering the calvarium via left frontal a pproach with distal tip projecting into the frontal horn of the left lateral ventricle. Similar findi ngs seen on prior. Ventricular system is slightly increased in size from prior, but remains within no rmal limits. 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 Craniotom y site is seen in the occipital region as well. Please clinically correlate. Otherwise, no acute hemorrhage, mass effect, midline shift, hydrocephalus, or acute, large territori al infarct. No signs of significant atrophy or chronic infarct. Minimal, nonspecific white matter dis ease suggested. Some component of pontine disease may be present as well. CRANIOCERVICAL JUNCTION: No significant abnormality. ORBITS: No significant abnormality of visualized orbits. SINUSES / MASTOIDS: Mild to moderate mucosal thickening seen in the left maxillary antrum. ADDITIONAL FINDINGS: None. IMPRESSION: 1. No focal mass, hemorrhage, hydrocephalus, or acute, large territorial infarct. Follow-up with diff usion imaging by MRI, as clinically warranted. Signer Name: Manuel Harrison MD, III Signed: 06/05/2021 8:56 PM Workstation Name: [email or web address]
--- NOTE | 2021-06-05 21:04 | Emergency Department Report ---
HPI - General Time Seen by Provider: 06/05/21 20:20 - HPI HPI: 80-year-old -Citizen Of [place] male presents to the emergency department via EMS from home with concern for sudden alteration in mental status. Patient does have a history of a brain mass with subsequent surgery done in February of last year at [facility]. Since the time of that surgery the patient has been having some instability with ambulation, some mild slurred speech, and gets food and medication through a PEG tube. However at baseline, prior to this afternoon, the patient is normally awake, alert, oriented, AAO x3 and able to assist with some of his ADLs. Patient son says that the patient went for a nap late this afternoon and when he checked on him he was not responding. I different points he says that his eyes were open but essentially was unresponsive which is what prompted him to call for EMS. 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 - Surgical History Additional Surgical History: shunt in brain - Social History Smoking Status: Never Smoker Substance Use Type: None - Medications Home Medications: Home Medications Medication Instructions Recorded Confirmed Last Taken Type cephALEXin [Keflex] 500 mg PO BID #14 capsule 07/23/14 Unknown Rx Acetaminophen [Non-Aspirin Extra 500 mg PO Q6HR PRN #30 tablet 02/24/19 Unknown Rx Strength] Metoclopramide [Reglan] 10 mg PO QID PRN #30 tablet 02/24/19 Unknown Rx ED Review of Systems ROS: Stated complaint: POSS STROKE Other details as noted in HPI Comment: Unobtainable due to pts medical conditions Physical Exam - Physical Exam Physical Exam: GENERAL: The patient is ill-appearing. HENT: Normocephalic. Atraumatic. Patient has moist mucous membranes. EYES: Extraocular motions are intact. Pupils equal reactive to light mariluz aterally. NECK: Supple. Trachea is midline. CHEST/LUNGS: Coarse breath sound and rhonchi heard. There is moderate tachypnea and a productive sounding cough heard. HEART/CARDIOVASCULAR: Regular. There is moderate tachycardia. There is no murmur. ABDOMEN: Abdomen is soft, nontender. Patient has normal bowel sounds. There is no abdominal distention. SKIN: Skin is warm and dry. NEURO: Patient is awake but confused. Follows a few commands. Nonverbal. Withdraws from painful stimuli to the upper extremities. Initially no movement of the lower extremities against gravity. Bilateral upper extremity drift. MUSCULOSKELETAL: There is no tenderness or deformity. - Central Line Placement Right Femoral Consent Obtained: verbal consent (From patient's daughter Adriana), emergent situation Time Out Performed: Yes Patient Placed on Monitor/Pulse Ox: Yes Prep: mask, gown, gloves Central Line Prep: Chlorhexidine scrub Local Anesthesia Used: Lidocaine 1% Amount of Anesthesia Used (mls): 3 Ultrasound Used for Placement: Yes Central Line Lumen Inserted: triple Reason for Insertion: Volume Resuscitation Central Line Position: good blood return, all ports aspirated, flus, sutured in place with nyl Dressing Applied: Tegaderm, sterile gauze/tape Patient Tolerated Procedure: well Complications: none ED Medical Decision Making - Lab Data Result diagrams: 06/05/21 20:35 06/05/21 20:35 Lab Results 06/05/21 06/05/21 06/05/21 Range/Units 20:21 20:35 20:35 WBC 13.6 H (4.5-11.0) K/mm3 RBC 4.12 (3.65-5.03) M/mm3 Hgb 10.7 L (11.8-15.2) gm/dl Hct 35.9 (35.5-45.6) % MCV 87 (84-94) fl MCH 26 L (28-32) pg MCHC 30 L (32-34) % RDW 16.9 H (13.2-15.2) % Plt Count 287 (140-440) K/mm3 Lymph % (Auto) Make Up Arranger [place] % (Auto) Make Up Arranger Eos % (Auto) Make Up Arranger Baso % (Auto) Make Up Arranger Lymph # (Auto) Make Up Arranger [place] # (Auto) Make Up Arranger Eos # (Auto) Make Up Arranger Baso # (Auto) Make Up Arranger Add Manual Diff Complete Total Counted 100 Seg Neutrophils % Make Up Arranger Seg Neuts % (Manual) 76.0 H (40.0-70.0) % Band Neutrophils % 21.0 % Lymphocytes % (Manual) 1.0 L (13.4-35.0) % Reactive Lymphs % (Man) 0 % Monocytes % (Manual) 0 (0.0-7.3) % Eosinophils % (Manual) 0 (0.0-4.3) % Basophils % (Manual) 0 (0.0-1.8) % Metamyelocytes % 0 % Myelocytes % 2.0 % Promyelocytes % 0 % Blast Cells % 0 % Nucleated RBC % Not Reportable Seg Neutrophils # Make Up Arranger Seg Neutrophils # Man 10.3 H (1.8-7.7) K/mm3 Band Neutrophils # 2.9 K/mm3 Lymphocytes # (Manual) 0.1 L (1.2-5.4) K/mm3 Abs React Lymphs (Man) 0.0 K/mm3 Monocytes # (Manual) 0.0 (0.0-0.8) K/mm3 Eosinophils # (Manual) 0.0 (0.0-0.4) K/mm3 Basophils # (Manual) 0.0 (0.0-0.1) K/mm3 Metamyelocytes # 0.0 K/mm3 Myelocytes # 0.3 K/mm3 Promyelocytes # 0.0 K/mm3 Blast Cells # 0.0 K/mm3 WBC Morphology Not Reportable Hypersegmented Neuts Not Reportable Hyposegmented Neuts Not Reportable Hypogranular Neuts Not Reportable Smudge Cells Not Reportable Toxic Granulation Not Reportable Toxic Vacuolation Not Reportable Dohle Bodies Not Reportable Pelger-Huet Anomaly Not Reportable Pasha Rods Not Reportable Platelet Estimate Consistent w auto Clumped Platelets Not Reportable Plt Clumps, EDTA Not Reportable Large Platelets Not Reportable Giant Platelets Not Reportable Platelet Satelliting Not Reportable Plt Morphology Comment Not Reportable RBC Morphology Not Reportable Dimorphic RBCs Not Reportable Polychromasia Not Reportable Hypochromasia 1+ Poikilocytosis 1+ Anisocytosis Not Reportable Microcytosis Not Reportable Macrocytosis Not Reportable Spherocytes Not Reportable Pappenheimer Bodies Not Reportable Sickle Cells Not Reportable Target Cells Few Tear Drop Cells Not Reportable Ovalocytes Not Reportable Helmet Cells Not Reportable Henry-Whitharral Bodies Not Reportable [place] Rings Not Reportable Josue Cells Not Reportable Bite Cells Not Reportable Crenated Cell Not Reportable Elliptocytes Not Reportable Acanthocytes (Spur) Few Rouleaux Not Reportable Hemoglobin C Crystals Not Reportable Schistocytes Rare Malaria parasites Not Reportable Lázaro Bodies Not Reportable Hem Pathologist Commnt No PT 16.9 H (12.2-14.9) Sec. INR 1.24 H (0.87-1.13) APTT 32.1 (24.2-36.6) Sec. Thrombin Time 19.7 H (15.1-19.6) Sec. D-Dimer (0-234) ng/mlDDU Sodium (137-145) mmol/L Potassium (3.6-5.0) mmol/L Chloride (98-107) mmol/L Carbon Dioxide (22-30) mmol/L Anion Gap mmol/L BUN (9-20) mg/dL Creatinine (0.8-1.3) mg/dL Estimated GFR ml/min BUN/Creatinine Ratio % Glucose (75-100) mg/dL POC Glucose 92 (70-105) mg/dL Lactic Acid (0.7-2.0) mmol/L Calcium (8.4-10.2) mg/dL Ferritin (30.0-300.0) ng/mL Total Bilirubin (0.1-1.2) mg/dL AST (5-40) units/L ALT (7-56) units/L Alkaline Phosphatase (35-129) units/L Lactate Dehydrogenase (91-180) units/L Total Creatine Kinase (55-170) units/L CK-MB (CK-2) (0.0-4.0) ng/mL CK-MB (CK-2) Rel Index (0-4) Troponin T (0.00-0.029) ng/mL C-Reactive Protein (0.00-1.30) mg/dL NT-Pro-B Natriuret Pep (0-900) pg/mL Total Protein (6.3-8.2) g/dL Albumin (3.9-5) g/dL Albumin/Globulin Ratio % Plasma/Serum Alcohol (0-0.07) % Blood Type Antibody Screen 06/05/21 06/05/21 06/05/21 Range/Units 20:35 20:35 20:35 WBC (4.5-11.0) K/mm3 RBC (3.65-5.03) M/mm3 Hgb (11.8-15.2) gm/dl Hct (35.5-45.6) % MCV (84-94) fl MCH (28-32) pg MCHC (32-34) % RDW (13.2-15.2) % Plt Count (140-440) K/mm3 Lymph % (Auto) [place] % (Auto) Eos % (Auto) Baso % (Auto) Lymph # (Auto) [place] # (Auto) Eos # (Auto) Baso # (Auto) Add Manual Diff Total Counted Seg Neutrophils % Seg Neuts % (Manual) (40.0-70.0) % Band Neutrophils % % Lymphocytes % (Manual) (13.4-35.0) % Reactive Lymphs % (Man) % Monocytes % (Manual) (0.0-7.3) % Eosinophils % (Manual) (0.0-4.3) % Basophils % (Manual) (0.0-1.8) % Metamyelocytes % % Myelocytes % % Promyelocytes % % Blast Cells % % Nucleated RBC % Seg Neutrophils # Seg Neutrophils # Man (1.8-7.7) K/mm3 Band Neutrophils # K/mm3 Lymphocytes # (Manual) (1.2-5.4) K/mm3 Abs React Lymphs (Man) K/mm3 Monocytes # (Manual) (0.0-0.8) K/mm3 Eosinophils # (Manual) (0.0-0.4) K/mm3 Basophils # (Manual) (0.0-0.1) K/mm3 Metamyelocytes # K/mm3 Myelocytes # K/mm3 Promyelocytes # K/mm3 Blast Cells # K/mm3 WBC Morphology Hypersegmented Neuts Hyposegmented Neuts Hypogranular Neuts Smudge Cells Toxic Granulation Toxic Vacuolation Dohle Bodies Pelger-Huet Anomaly Pasha Rods Platelet Estimate Clumped Platelets Plt Clumps, EDTA Large Platelets Giant Platelets Platelet Satelliting Plt Morphology Comment RBC Morphology Dimorphic RBCs Polychromasia Hypochromasia Poikilocytosis Anisocytosis Microcytosis Macrocytosis Spherocytes Pappenheimer Bodies Sickle Cells Target Cells Tear Drop Cells Ovalocytes Helmet Cells Henry-Whitharral Bodies [place] Rings Josue Cells Bite Cells Crenated Cell Elliptocytes Acanthocytes (Spur) Rouleaux Hemoglobin C Crystals Schistocytes Malaria parasites Lázaro Bodies Hem Pathologist Commnt PT (12.2-14.9) Sec. INR (0.87-1.13) APTT (24.2-36.6) Sec. Thrombin Time (15.1-19.6) Sec. D-Dimer (0-234) ng/mlDDU Sodium 141 (137-145) mmol/L Potassium 5.4 H (3.6-5.0) mmol/L Chloride 105.5 (98-107) mmol/L Carbon Dioxide 24 (22-30) mmol/L Anion Gap 17 mmol/L BUN 30 H (9-20) mg/dL Creatinine 0.9 (0.8-1.3) mg/dL Estimated GFR > 60 ml/min BUN/Creatinine Ratio 33 % Glucose 87 (75-100) mg/dL POC Glucose (70-105) mg/dL Lactic Acid (0.7-2.0) mmol/L Calcium 9.0 (8.4-10.2) mg/dL Ferritin (30.0-300.0) ng/mL Total Bilirubin 0.50 (0.1-1.2) mg/dL AST 54 H (5-40) units/L ALT 36 (7-56) units/L Alkaline Phosphatase 52 (35-129) units/L Lactate Dehydrogenase (91-180) units/L Total Creatine Kinase 149 (55-170) units/L CK-MB (CK-2) 1.4 (0.0-4.0) ng/mL CK-MB (CK-2) Rel Index 0.9 (0-4) Troponin T 0.012 (0.00-0.029) ng/mL C-Reactive Protein (0.00-1.30) mg/dL NT-Pro-B Natriuret Pep (0-900) pg/mL Total Protein 7.1 (6.3-8.2) g/dL Albumin 2.4 L (3.9-5) g/dL Albumin/Globulin Ratio 0.5 % Plasma/Serum Alcohol < 0.01 (0-0.07) % Blood Type AB POSITIVE Antibody Screen Negative 06/05/21 06/05/21 06/05/21 Range/Units 20:35 21:42 21:42 WBC (4.5-11.0) K/mm3 RBC (3.65-5.03) M/mm3 Hgb (11.8-15.2) gm/dl Hct (35.5-45.6) % MCV (84-94) fl MCH (28-32) pg MCHC (32-34) % RDW (13.2-15.2) % Plt Count (140-440) K/mm3 Lymph % (Auto) [place] % (Auto) Eos % (Auto) Baso % (Auto) Lymph # (Auto) [place] # (Auto) Eos # (Auto) Baso # (Auto) Add Manual Diff Total Counted Seg Neutrophils % Seg Neuts % (Manual) (40.0-70.0) % Band Neutrophils % % Lymphocytes % (Manual) (13.4-35.0) % Reactive Lymphs % (Man) % Monocytes % (Manual) (0.0-7.3) % Eosinophils % (Manual) (0.0-4.3) % Basophils % (Manual) (0.0-1.8) % Metamyelocytes % % Myelocytes % % Promyelocytes % % Blast Cells % % Nucleated RBC % Seg Neutrophils # Seg Neutrophils # Man (1.8-7.7) K/mm3 Band Neutrophils # K/mm3 Lymphocytes # (Manual) (1.2-5.4) K/mm3 Abs React Lymphs (Man) K/mm3 Monocytes # (Manual) (0.0-0.8) K/mm3 Eosinophils # (Manual) (0.0-0.4) K/mm3 Basophils # (Manual) (0.0-0.1) K/mm3 Metamyelocytes # K/mm3 Myelocytes # K/mm3 Promyelocytes # K/mm3 Blast Cells # K/mm3 WBC Morphology Hypersegmented Neuts Hyposegmented Neuts Hypogranular Neuts Smudge Cells Toxic Granulation Toxic Vacuolation Dohle Bodies Pelger-Huet Anomaly Pasha Rods Platelet Estimate Clumped Platelets Plt Clumps, EDTA Large Platelets Giant Platelets Platelet Satelliting Plt Morphology Comment RBC Morphology Dimorphic RBCs Polychromasia Hypochromasia Poikilocytosis Anisocytosis Microcytosis Macrocytosis Spherocytes Pappenheimer Bodies Sickle Cells Target Cells Tear Drop Cells Ovalocytes Helmet Cells Henry-Whitharral Bodies [place] Rings Josue Cells Bite Cells Crenated Cell Elliptocytes Acanthocytes (Spur) Rouleaux Hemoglobin C Crystals Schistocytes Malaria parasites Lázaro Bodies Hem Pathologist Commnt PT (12.2-14.9) Sec. INR (0.87-1.13) APTT (24.2-36.6) Sec. Thrombin Time (15.1-19.6) Sec. D-Dimer 2087.18 H (0-234) ng/mlDDU Sodium (137-145) mmol/L Potassium (3.6-5.0) mmol/L Chloride (98-107) mmol/L Carbon Dioxide (22-30) mmol/L Anion Gap mmol/L BUN (9-20) mg/dL Creatinine (0.8-1.3) mg/dL Estimated GFR ml/min BUN/Creatinine Ratio % Glucose (75-100) mg/dL POC Glucose (70-105) mg/dL Lactic Acid 3.10 H* (0.7-2.0) mmol/L Calcium (8.4-10.2) mg/dL Ferritin (30.0-300.0) ng/mL Total Bilirubin (0.1-1.2) mg/dL AST (5-40) units/L ALT (7-56) units/L Alkaline Phosphatase (35-129) units/L Lactate Dehydrogenase 167 (91-180) units/L Total Creatine Kinase (55-170) units/L CK-MB (CK-2) (0.0-4.0) ng/mL CK-MB (CK-2) Rel Index (0-4) Troponin T (0.00-0.029) ng/mL C-Reactive Protein 6.00 H (0.00-1.30) mg/dL NT-Pro-B Natriuret Pep 674.6 (0-900) pg/mL Total Protein (6.3-8.2) g/dL Albumin (3.9-5) g/dL Albumin/Globulin Ratio % Plasma/Serum Alcohol (0-0.07) % Blood Type Antibody Screen 06/05/21 Range/Units 21:42 WBC (4.5-11.0) K/mm3 RBC (3.65-5.03) M/mm3 Hgb (11.8-15.2) gm/dl Hct (35.5-45.6) % MCV (84-94) fl MCH (28-32) pg MCHC (32-34) % RDW (13.2-15.2) % Plt Count (140-440) K/mm3 Lymph % (Auto) [place] % (Auto) Eos % (Auto) Baso % (Auto) Lymph # (Auto) [place] # (Auto) Eos # (Auto) Baso # (Auto) Add Manual Diff Total Counted Seg Neutrophils % Seg Neuts % (Manual) (40.0-70.0) % Band Neutrophils % % Lymphocytes % (Manual) (13.4-35.0) % Reactive Lymphs % (Man) % Monocytes % (Manual) (0.0-7.3) % Eosinophils % (Manual) (0.0-4.3) % Basophils % (Manual) (0.0-1.8) % Metamyelocytes % % Myelocytes % % Promyelocytes % % Blast Cells % % Nucleated RBC % Seg Neutrophils # Seg Neutrophils # Man (1.8-7.7) K/mm3 Band Neutrophils # K/mm3 Lymphocytes # (Manual) (1.2-5.4) K/mm3 Abs React Lymphs (Man) K/mm3 Monocytes # (Manual) (0.0-0.8) K/mm3 Eosinophils # (Manual) (0.0-0.4) K/mm3 Basophils # (Manual) (0.0-0.1) K/mm3 Metamyelocytes # K/mm3 Myelocytes # K/mm3 Promyelocytes # K/mm3 Blast Cells # K/mm3 WBC Morphology Hypersegmented Neuts Hyposegmented Neuts Hypogranular Neuts Smudge Cells Toxic Granulation Toxic Vacuolation Dohle Bodies Pelger-Huet Anomaly Pasha Rods Platelet Estimate Clumped Platelets Plt Clumps, EDTA Large Platelets Giant Platelets Platelet Satelliting Plt Morphology Comment RBC Morphology Dimorphic RBCs Polychromasia Hypochromasia Poikilocytosis Anisocytosis Microcytosis Macrocytosis Spherocytes Pappenheimer Bodies Sickle Cells Target Cells Tear Drop Cells Ovalocytes Helmet Cells Henry-Whitharral Bodies [place] Rings Josue Cells Bite Cells Crenated Cell Elliptocytes Acanthocytes (Spur) Rouleaux Hemoglobin C Crystals Schistocytes Malaria parasites Lázaro Bodies Hem Pathologist Commnt PT (12.2-14.9) Sec. INR (0.87-1.13) APTT (24.2-36.6) Sec. Thrombin Time (15.1-19.6) Sec. D-Dimer (0-234) ng/mlDDU Sodium (137-145) mmol/L Potassium (3.6-5.0) mmol/L Chloride (98-107) mmol/L Carbon Dioxide (22-30) mmol/L Anion Gap mmol/L BUN (9-20) mg/dL Creatinine (0.8-1.3) mg/dL Estimated GFR ml/min BUN/Creatinine Ratio % Glucose (75-100) mg/dL POC Glucose (70-105) mg/dL Lactic Acid (0.7-2.0) mmol/L Calcium (8.4-10.2) mg/dL Ferritin 295.3 (30.0-300.0) ng/mL Total Bilirubin (0.1-1.2) mg/dL AST (5-40) units/L ALT (7-56) units/L Alkaline Phosphatase (35-129) units/L Lactate Dehydrogenase (91-180) units/L Total Creatine Kinase (55-170) units/L CK-MB (CK-2) (0.0-4.0) ng/mL CK-MB (CK-2) Rel Index (0-4) Troponin T (0.00-0.029) ng/mL C-Reactive Protein (0.00-1.30) mg/dL NT-Pro-B Natriuret Pep (0-900) pg/mL Total Protein (6.3-8.2) g/dL Albumin (3.9-5) g/dL Albumin/Globulin Ratio % Plasma/Serum Alcohol (0-0.07) % Blood Type Antibody Screen - EKG Data -: EKG Interpreted by Ne EKG shows normal: sinus rhythm, axis, intervals (Widened QRS), QRS complexes (Nonspecific intraventricular conduction delay), ST-T waves Rate: tachycardia (144 bpm) - EKG Data When compared to previous EKG there are: previous EKG unavailable Interpretation: other (Like QRS tachycardia 146 bpm, although there appears to be a lot of artifact. Normal axis. Nonspecific intraventricular conduction delay. No ST elevation IA) - Radiology Data Radiology results: report reviewed CT head/brain wo con INDICATION / CLINICAL INFORMATION: 80 years Male; Stroke s ymptoms. TECHNIQUE: Routine CT head without contrast. All CT scans at this location are performed using CT dose reduction for ALARA by means of automated exposure control. Motion artifact present. COMPARISON: 02/24/2019 FINDINGS: BRAIN / INTRACRANIAL CONTENTS: Ventricular catheter is seen entering the calvarium via left frontal approach with distal tip projecting into the frontal horn of the left lateral ventricle. Similar findings seen on prior. Ventricular system is slightly increased in size from prior, but remains within normal limits. 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 Craniotomy site is seen in the occipital region as well. Please clinically correlate. Otherwise, no acute hemorrhage, mass effect, midline shift, hydrocephalus, or acute, large territorial infarct. No signs of significant atrophy or chronic infarct. Minimal, nonspecific white matter disease suggested. Some component of pontine disease may be present as well. CRANIOCERVICAL JUNCTION: No significant abnormality. ORBITS: No significant abnormality of visualized orbits. SINUSES / MASTOIDS: Mild to moderate mucosal thickening seen in the left maxillary antrum. ADDITIONAL FINDINGS: None. IMPRESSION: 1. No focal mass, hemorrhage, hydrocephalus, or acute, large territorial infarct. Follow-up with diffusion imaging by MRI, as clinically warranted. CT angio neck INDICATION / CLINICAL INFORMATION: 80 years Male; stroke sx. TECHNIQUE: Thin cut axial images obtained through the head during IV bolus contrast administration. Sagittal, coronal, and 3 plane MIP reconstructions performed by the technologist. NASCET type criteria used evaluate stenoses. All CT scans at this location are performed using CT dose reduction for ALARA by means of automated exposure control. . COMPARISON: None available. FINDINGS: ARCH: Bovine arch configuration noted. Minimal atherosclerotic disease noted. CAROTID ARTERIES: The visualized common and internal carotid arteries are widely patent. Surprisingly little atherosclerotic disease is present. VERTEBRAL AR TERIES: Codominant vertebral system seen. No significant stenosis appreciated. ADDITIONAL FINDINGS: Thyroid gland is mildly enlarged with multiple small nodules and/or cysts identified. Desiccated secretions are layering in the piriform sinuses bilaterally, as well as in the hypopharynx. Mild to moderate mucosal thickening seen in the left maxillary antrum. Prior antrostomy noted on the left. Mild mucosal thickening seen in the ethmoids. Prior craniectomy site seen in the occipital region. A portion of the posterior arch of C1 is been resected. Probable pseudomeningocele is present, extending into the adjacent subcutaneous soft tissues. Concerning the cervical spine, there is mild osseous foraminal narrowing at multiple levels from uncinate hypertrophy. Multilevel disc space narrowing seen. No significant canal stenosis appreciated. IMPRESSION: No significant stenosis appreciated on this CTA of the neck. CT angio head INDICATION / CLINICAL INFORMATION: 80 years Male; stroke sx. TECHNIQUE: Thin cut axial images obtained through the head during IV bolus contrast administration. Sagittal, coronal, and 3 plane MIP reconstructions performed by the technologist. NASCET type criteria used evaluate stenoses. Automated exposure control utilized for radiation reduction purposes. . COMPARISON: None available. FINDINGS: INTERNAL CAROTID ARTERIES: No significant narrowing appreciated. VERTEBROBASILAR SYSTEM: No significant narrowing appreciated. DISTAL BRANCHES: Distal branches of the anterior, middle, and posterior cerebral arteries are fairly symmetric in appearance and n umber. ANEURYSM: None identified. ADDITIONAL FINDINGS: Note, in the region of the occipital craniectomy site, there is CSF type fluid extending into the subcutaneous soft tissues superficial to the occipital bone-pseudomeningocele this region certainly might be a consideration. IMPRESSION: 1. No significant narrowing appreciated on this CTA of the head. 2. 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 CHEST 1 VIEW INDICATION: Altered mental status. COMPARISON: 09/12/2019 FINDINGS: Support devices: BATON TWIRLER shunt catheter is unchanged. Heart: Normal. Lungs/Pleura: Patchy, extensive bilateral airspace disease has developed. No pleural abnormality. IMPRESSION: 1. Extensive patchy bilateral airspace disease concerning for bilateral pneumonia. - Medical Decision Making This patient presents to the emergency department as both a code stroke and code sepsis. The patient took a nap earlier in the day and then was essentially unresponsive to his son. He was found to have a fever and tachycardia and hypotension by EMS. The patient was immediately seen by the telemedicine neurologist who agrees that he is not a TPA candidate secondary to the brain surgery he had done in February of last year. He was given an NIH stroke scale of 19 secondary to his confusion, dysarthria, dysphagia, and lower extremity weakness. Patient was sent for a CT scan of the head and CT angiography of the head and neck. No hemorrhage, large vessel occlusion, mass-effect, hydrocephalus, or any other acute process was found on these imaging studies. The patient also has very coarse breath sounds and rhonchi heard. When the pat ient returned from CT imaging he had oxygen desaturation down into the 70s and was placed on a nonrebreather. Chest x-ray shows extensive bilateral patchy opacities concerning for pneumonia. Blood cultures have been sent and the patient has been started on antibiotics and given a dose of Decadron. Family says that he is not vaccinated against COVID-19 and therefore has been made a PUI. Labs show a mild leukocytosis of 13,000, mild hypokalemia with potassium level of 5.4, lactic acidosis, elevated inflammatory markers of D-dimer, CRP, and mild elevation in his AST. The patient continues to have hypotension after 2 L of IV fluid. A right femoral central venous catheter has been placed and the patient has been started on pressors. The patient's family has been updated regarding his lab and imaging results and plan for admission to the ICU. The associate professor of history has been contacted and consulted regarding ICU management and admission. Patient has been accepted for admission by the hospitalist, Dr. Briceño. Critical Care Time: Yes Critical care time in (mins) excluding proc time.: 40 Critical care attestation.: If time is entered above; I have spent that time in minutes in the direct care of this critically ill patient, excluding procedure time. Critical care time spent on this patient during his initial evaluation, multiple reevaluations, ordering and interpretation of labs and imaging, discussion with the telemedicine neurologist, discussion with the associate professor of history, multiple discussions with the patient's family, management of pressors, IV fluid resuscitation. Critical Care Time: 40 minutes ED Disposition Clinical Impression: Suspected 2019 novel coronavirus infection, Encephalopathy acute, Lactic acidosis, Hypoxia Sepsis Qualifiers: Sepsis type: sepsis due to unspecified organism Sepsis acute organ dysfunction status: unspecified Qualified Code(s): A41.9 - Sepsis, unspecified organism Hypotension Qualifiers: Hypotension type: unspecified hypotension type Qualified Code(s): I95.9 - Hypotension, unspecified Disposition: 09 ADMITTED INPATIENT Is pt being admited?: Yes Condition: Serious Time of Disposition: 23:43
--- NOTE | 2021-06-05 21:11 | Cat Scan Report ---
CT angio head INDICATION / CLINICAL INFORMATION: 80 years Male; stroke sx. TECHNIQUE: Thin cut axial images obtained through the head during IV bolus contrast administration. S agittal, coronal, and 3 plane MIP reconstructions performed by the technologist. NASCET type criteria used evaluate stenoses. Automated exposure control utilized for radiation reduction purposes. . COMPARISON: None available. FINDINGS: INTERNAL CAROTID ARTERIES: No significant narrowing appreciated. VERTEBROBASILAR SYSTEM: No significant narrowing appreciated. DISTAL BRANCHES: Distal branches of the anterior, middle, and posterior cerebral arteries are fairly symmetric in appearance and number. ANEURYSM: None identified. ADDITIONAL FINDINGS: Note, in the region of the occipital craniectomy site, there is CSF type fluid e xtending into the subcutaneous soft tissues superficial to the occipital bone-pseudomeningocele this region certainly might be a consideration. IMPRESSION: 1. No significant narrowing appreciated on this CTA of the head. 2. 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 Signer Name: Manuel Harrison MD, III Signed: 06/05/2021 9:06 PM Workstation Name: [email or web address]
[2021-06-05] MEDS ORDERED: ACETAMINOPHEN 650 MG RECT SUPP PR ONE (21:20)
--- NOTE | 2021-06-05 21:22 | Emergency Department Report ---
Blank Doc - Documentation Documentation: [facility] Consult Note # Demographics Consult Type: Acute Stroke Level 1 (0-4.5 hrs) Patient Location: Emergency Room First Name: megan Last Name: christopher Date of : 1940 Age: 80 Gender: Male Facility: [facility] Time of Initial Page ( Time): 06/05/2021, 20:04 Time of Return Call ( Time): 06/05/2021, 20:05 # HPI History: 2 months ago, patient had brain surgery for tumor removal, functional at home. Patient presents with 2.5 hrs of confusion. For EMS, was confused and not responding, with facial droop. Temp 101.9 BP 75/46 with active cough. # Scores Time of exam and NIHSS (): 06/05/2021, 20:20 Level of Consciousness 1a: [1] = Not alert; but arousable by minor stim LOC Questions 1b: [2] = Answers neither correctly LOC Commands 1c: [2] = Performs neither correctly Best Gaze 2: [2] = Forced deviation Visual 3: [0] = No visual loss Facial Palsy 4: [0] = Normal symmetrical movements Motor Arm Left 5a: [1] = Drift Motor Arm Right 5b: [1] = Drift Motor Leg Left 6a: [3] = No effort against gravity Motor Leg Right 6b: [3] = No effort against gravity Limb Ataxia 7: [0] = Absent Sensory 8: [0] = Normal Best Language 9: [2] = Severe aphasia Dysarthria 10: [2] = Severe dysarthria Extinction and Inattention 11: [0] = No abnormality NIHSS Total: 19 # Data Head CT: no bleed preliminarily reviewed by me, please refer to radiology read for official reading hx of prior craniotomy, vps noted. CTA Head: no large vessel occlusion preliminarily reviewed by me, please refer to radiology read for official reading # Assessment Impression: recent brain tumor resection 2 months ago left gaze/ aphasia Unclear if new stroke vs seizure. not a tpa candidate due to hx of brain cancer. s/p vp analytics shunt. # Plan Thrombolytic/Intervention: NOT IV Thrombolysis or IA Intervention candidate Thrombolytic Exclusion (< 3 hour window): other (see below) Thrombolytic Exclusion: brain malignancy Target Blood Pressure: SBP < 220 Labs: CBC comprehensive metabolic panel lipid panel TSH ua Other: consult on-site neurology service for full work-up and evaluation recommendations If patient has any neurological deterioration please call me back immediately I have discussed my recommendations with the referring provider Additional Recommendations: keppra 2 gram now continue 1g keppra bid mri brain w/wo contrast. infectious work up Disposition: admit # Logistics Telemedicine: Interactive 2 way audio and visual telecommunication technology was utilized during this visit
--- NOTE | 2021-06-05 21:22 | Cat Scan Report ---
CT angio neck INDICATION / CLINICAL INFORMATION: 80 years Male; stroke sx. TECHNIQUE: Thin cut axial images obtained through the head during IV bolus contrast administration. S agittal, coronal, and 3 plane MIP reconstructions performed by the technologist. NASCET type criteria used evaluate stenoses. All CT scans at this location are performed using CT dose reduction for ALAR A by means of automated exposure control. . COMPARISON: None available. FINDINGS: ARCH: Bovine arch configuration noted. Minimal atherosclerotic disease noted. CAROTID ARTERIES: The visualized common and internal carotid arteries are widely patent. Surprisingly little atherosclerotic disease is present. VERTEBRAL ARTERIES: Codominant vertebral system seen. No significant stenosis appreciated. ADDITIONAL FINDINGS: Thyroid gland is mildly enlarged with multiple small nodules and/or cysts identi fied. Desiccated secretions are layering in the piriform sinuses bilaterally, as well as in the hypopharynx . Mild to moderate mucosal thickening seen in the left maxillary antrum. Prior antrostomy noted on the left. Mild mucosal thickening seen in the ethmoids. Prior craniectomy site seen in the occipital region. A portion of the posterior arch of C1 is been re sected. Probable pseudomeningocele is present, extending into the adjacent subcutaneous soft tissues. Concerning the cervical spine, there is mild osseous foraminal narrowing at multiple levels from unci jaime hypertrophy. Multilevel disc space narrowing seen. No significant canal stenosis appreciated. IMPRESSION: No significant stenosis appreciated on this CTA of the neck. Signer Name: Manuel Harrison MD, III Signed: 06/05/2021 9:17 PM Workstation Name: [email or web address]
[2021-06-05 21:31] LABS: Alanine Aminotransferase 36 units/L (7-56); Albumin 2.4 g/dL (3.9-5); BUN/Creatinine Ratio 33; Blood Urea Nitrogen 30 mg/dL (9-20); Creatine Kinase MB 1.4 ng/mL (0.0-4.0); Hemolysis Index 189
--- NOTE | 2021-06-05 21:43 | XRay Report ---
CHEST 1 VIEW INDICATION: Altered mental status. COMPARISON: 09/12/2019 FINDINGS: Support devices: LENS INSERTER shunt catheter is unchanged. Heart: Normal. Lungs/Pleura: Patchy, extensive bilateral airspace disease has developed. No pleural abnormality. IMPRESSION: 1. Extensive patchy bilateral airspace disease concerning for bilateral pneumonia. Signer Name: Albert Vera MD Signed: 06/05/2021 9:39 PM Workstation Name: [email or web address]
[2021-06-05] MEDS ORDERED: AZITHROMYCIN/NS 500 MG/250 ML 500 MG/250 ML BAG IV ONE (21:46)
[2021-06-05] MEDS ORDERED: cefTRIAXone/NS 1 GM/50 ML 1 GM/50 ML BAG IV ONE (21:46)
[2021-06-05] MEDS ORDERED: dexAMETHasone 4 MG/ML VIAL IV ONE (21:47)
[2021-06-05 22:31] LABS: INR 1.24 (0.87-1.13)
[2021-06-05 22:32] LABS: Partial Thromboplastin Time 32.1 Sec. (24.2-36.6); Thrombin Time 19.7 Sec. (15.1-19.6)
[2021-06-05 22:44] LABS: Hematocrit 35.9 % (35.5-45.6); Hemoglobin 10.7 gm/dl (11.8-15.2); Mean Corpuscular HGB Conc 30 % (32-34); Mean Corpuscular Volume 87 fl (84-94); Platelet Count 287 K/mm3 (140-440); Red Blood Count 4.12 M/mm3 (3.65-5.03); Red Cell Distribution Width 16.9 % (13.2-15.2)
[2021-06-05] MEDS: ASPIRIN 300 MG RECT SUPP PR ONE ×2 (22:57→23:00)
[2021-06-05] MEDS ORDERED: NORepinephrine/NS 8 MG-250 ML 8 MG/250 ML INFUS..BTL IV ONE (23:29)
[2021-06-05 23:32] LABS: Monocytes % (Manual) 0 % (0.0-7.3); Total Cells Counted 100
[2021-06-05 23:33] LABS: Band Neutrophils # (Manual) 2.9 K/mm3; Basophils % (Manual) 0 % (0.0-1.8); Eosinophils % (Manual) 0 % (0.0-4.3); Hypochromasia 1+; Myelocytes # (Manual) 0.3 K/mm3
[2021-06-05 23:34] LABS: Poikilocytosis 1+; Target Cells Few
[2021-06-05 23:35] LABS: Platelet Estimate Consistent w Auto; Schistocytes Rare
[2021-06-05] MEDS ORDERED: NORepinephrine/NS 8 MG-250 ML 8 MG/250 ML INFUS..BTL IV SCH (23:45)
[2021-06-06 02:47] LABS: ABG Base Excess -0.2 mmol/L (-2.0-3.0); ABG HCO3 27.3 mmol/L (20.0-26.0); ABG Methemoglobin 0.7 % (0.0-1.5); ABG Oxygen Saturation 98.9 % (95.0-99.0); ABG PCO2 56.7 mm Hg; ABG PH 7.3 pH Units (7.350-7.450); ABG PO2 170.4 mm Hg (80.0-90.0)
[2021-06-06] MEDS ORDERED: ALBUTEROL 2.5 MG/3 ML NEBU IH PRN (02:49)
[2021-06-06] MEDS ORDERED: MORPHINE 2 MG/1 ML INJ IV PRN (02:49)
[2021-06-06] MEDS ORDERED: ACETAMINOPHEN 325 MG TAB PO PRN (02:49)
[2021-06-06] MEDS ORDERED: HYDROmorphone 1 MG/1 ML INJ IV PRN (02:49)
[2021-06-06] MEDS ORDERED: ONDANSETRON 4 MG/2 ML INJ IV PRN (02:49)
--- NOTE | 2021-06-06 03:01 | History and Physical Report ---
History of Present Illness Date of examination: 06/06/21 Date of admission: 06/06/21 Chief complaint: Altered mental status History of present illness: 80-year-old male with history of a brain mass with subsequent surgery done in February of last year at [facility] was brought to the emergency room because of sudden alteration in mental status. Since the time of that surgery the patient has been having some instability with ambulation, some mild slurred speech, and gets food and medication through a PEG tube. However at baseline, prior to this afternoon, the patient is normally awake, alert, oriented, AAO x3 and able to assist with some of his ADLs. Patient son says that the patient went for a nap late this afternoon and when he checked on him he was not re sponding. Patient eyes were open but essentially was unresponsive which is what prompted him to call for EMS. In the emergency room patient is seen and evaluated by telemetry neurology. CT head shows no focal mass, hemorrhage no hydrocephalus, or acute large territorial infarct. Stroke versus seizure. Recommends full stroke work-up patient WBC is 13.6, potassium 5.4, BUN 30 creatinine 0.9, lactic acid 3.10. Chest x-ray shows extensive bilateral patchy opacities concerning for pneumonia. Blood cultures have been sent and the patient has been started on antibiotics and given a dose of Decadron. Family says that he is not vaccinated against COVID-19 and therefore has been made a PUI. Labs show a mild leukocytosis of 13,000, mild hypokalemia with potassium level of 5.4, lactic acidosis, elevated inflammatory markers of D-dimer, CRP, and mild elevation in his AST. The patient continues to have hypotension after 2 L of IV fluid. A right femoral central venous catheter has been placed and the patient has been started on pressors. The patient's family has been updated regarding his lab and imaging results and plan for admission to the ICU. Past History Past Medical History: other (BRAIN TUMOR WITH SHUNT) Medications and Allergies Allergies Allergy/AdvReac Type Severity Reaction Status Date / Time No Known Allergies Allergy Verified 09/12/19 17:00 Home Medications Medication Instructions Recorded Confirmed Last Taken Type cephALEXin [Keflex] 500 mg PO BID #14 capsule 07/23/14 Unknown Rx Acetaminophen [Non-Aspirin Extra 500 mg PO Q6HR PRN #30 tablet 10/21/19 Unknown Rx Strength] Metoclopramide [Reglan] 10 mg PO QID PRN #30 tablet 02/24/19 Unknown Rx Active Meds: Active Medications NORepinephrine/NS 8 MG-250 ML (Norepinephrine/Ns 8 Mg-250 Ml (Double Conc)) 8 mg in 250 mls @ 3.75 mls/hr IV TITRATE JACKY; Protocol Last Admin: 06/06/21 00:00 Dose: 2 mcg/min, 3.75 mls/hr Review of Systems All systems: negative Constitutional: fatigue, lethargy Exam - Constitutional Vitals: Temp Pulse Resp BP Pulse Ox 100.9 F H 112 H 18 82/47 100 06/05/21 21:25 06/05/21 22:45 06/05/21 22:30 06/05/21 22:45 06/05/21 22:30 General appearance: Present: no acute distress, well-nourished - EENT Eyes: Present: PERRL ENT: hearing intact, clear oral mucosa - Neck Neck: Present: supple, normal ROM - Respiratory Respiratory effort: normal Respiratory: bilateral: CTA - Cardiovascular Heart Sounds: Present: S1 & S2. Absent: rub, click - Extremities Extremities: pulses symmetrical, No edema Peripheral Pulses: within normal limits - Abdominal General gastrointestinal: Present: soft, non-tender, non-distended, normal bowel sounds Male genitourinary: Present: normal - Integumentary Integumentary: Present: clear, warm, dry - Musculoskeletal Musculoskeletal: gait normal, strength equal bilaterally - Neurologic Neurologic: CNII-XII intact, moves all extremities, other ( Patient is awake but confused. Follows a few commands. Nonverbal. Withdraws from painful stimuli to the upper extremities. Initially no movement of the lower extremities against gravity. Bilateral upper extremity drif) HEART Score - HEART Score Troponin: Troponin T 0.012 ng/mL (0.00-0.029) 06/05/21 20:35 Results - Labs CBC & Chem 7: 06/05/21 20:35 06/05/21 20:35 Labs: Laboratory Last Values WBC 13.6 K/mm3 (4.5-11.0) H 06/05/21 20:35 RBC 4.12 M/mm3 (3.65-5.03) 06/05/21 20:35 Hgb 10.7 gm/dl (11.8-15.2) L 06/05/21 20:35 Hct 35.9 % (35.5-45.6) 06/05/21 20:35 MCV 87 fl (84-94) 06/05/21 20:35 MCH 26 pg (28-32) L 06/05/21 20:35 MCHC 30 % (32-34) L 06/05/21 20:35 RDW 16.9 % (13.2-15.2) H 06/05/21 20:35 Plt Count 287 K/mm3 (140-440) 06/05/21 20:35 Lymph % (Auto) Cottrell Operator 06/05/21 20:35 Bannock % (Auto) Cottrell Operator 06/05/21 20:35 Eos % (Auto) Cottrell Operator 06/05/21 20:35 Baso % (Auto) Cottrell Operator 06/05/21 20:35 Lymph # (Auto) Cottrell Operator 06/05/21 20:35 B[place]ock # (Auto) Cottrell Operator 06/05/21 20:35 Eos # (Auto) Cottrell Operator 06/05/21 20:35 Baso # (Auto) Cottrell Operator 06/05/21 20:35 Add Manual Diff Complete 06/05/21 20:35 Total Counted 100 06/05/21 20:35 Seg Neutrophils % Cottrell Operator 06/05/21 20:35 Seg Neuts % (Manual) 76.0 % (40.0-70.0) H 06/05/21 20:35 Band Neutrophils % 21.0 % 06/05/21 20:35 Lymphocytes % (Manual) 1.0 % (13.4-35.0) L 06/05/21 20:35 Reactive Lymphs % (Man) 0 % 06/05/21 20:35 Monocytes % (Manual) 0 % (0.0-7.3) 06/05/21 20:35 Eosinophils % (Manual) 0 % (0.0-4.3) 06/05/21 20:35 Basophils % (Manual) 0 % (0.0-1.8) 06/05/21 20:35 Metamyelocytes % 0 % 06/05/21 20:35 Myelocytes % 2.0 % 06/05/21 20:35 Promyelocytes % 0 % 06/05/21 20:35 Blast Cells % 0 % 06/05/21 20:35 Nucleated RBC % Not Reportable 06/05/21 20:35 Seg Neutrophils # Cottrell Operator 06/05/21 20:35 Seg Neutrophils # Man 10.3 K/mm3 (1.8-7.7) H 06/05/21 20:35 Band Neutrophils # 2.9 K/mm3 06/05/21 20:35 Lymphocytes # (Manual) 0.1 K/mm3 (1.2-5.4) L 06/05/21 20:35 Abs React Lymphs (Man) 0.0 K/mm3 06/05/21 20:35 Monocytes # (Manual) 0.0 K/mm3 (0.0-0.8) 06/05/21 20:35 Eosinophils # (Manual) 0.0 K/mm3 (0.0-0.4) 06/05/21 20:35 Basophils # (Manual) 0.0 K/mm3 (0.0-0.1) 06/05/21 20:35 Metamyelocytes # 0.0 K/mm3 06/05/21 20:35 Myelocytes # 0.3 K/mm3 06/05/21 20:35 Promyelocytes # 0.0 K/mm3 06/05/21 20:35 Blast Cells # 0.0 K/mm3 06/05/21 20:35 WBC Morphology Not Reportable 06/05/21 20:35 Hypersegmented Neuts Not Reportable 06/05/21 20:35 Hyposegmented Neuts Not Reportable 06/05/21 20:35 Hypogranular Neuts Not Reportable 06/05/21 20:35 Smudge Cells Not Reportable 06/05/21 20:35 Toxic Granulation Not Reportable 06/05/21 20:35 Toxic Vacuolation Not Reportable 06/05/21 20:35 Dohle Bodies Not Reportable 06/05/21 20:35 Pelger-Huet Anomaly Not Reportable 06/05/21 20:35 Pasha Rods Not Reportable 06/05/21 20:35 Platelet Estimate Consistent w auto 06/05/21 20:35 Clumped Platelets Not Reportable 06/05/21 20:35 Plt Clumps, EDTA Not Reportable 06/05/21 20:35 Large Platelets Not Reportable 06/05/21 20:35 Giant Platelets Not Reportable 06/05/21 20:35 Platelet Satelliting Not Reportable 06/05/21 20:35 Plt Morphology Comment Not Reportable 06/05/21 20:35 RBC Morphology Not Reportable 06/05/21 20:35 Dimorphic RBCs Not Reportable 06/05/21 20:35 Polychromasia Not Reportable 06/05/21 20:35 Hypochromasia 1+ 06/05/21 20:35 Poikilocytosis 1+ 06/05/21 20:35 Anisocytosis Not Reportable 06/05/21 20:35 Microcytosis Not Reportable 06/05/21 20:35 Macrocytosis Not Reportable 06/05/21 20:35 Spherocytes Not Reportable 06/05/21 20:35 Pappenheimer Bodies Not Reportable 06/05/21 20:35 Sickle Cells Not Reportable 06/05/21 20:35 Target Cells Few 06/05/21 20:35 Tear Drop Cells Not Reportable 06/05/21 20:35 Ovalocytes Not Reportable 06/05/21 20:35 Helmet Cells Not Reportable 06/05/21 20:35 Henry-Jacobus Bodies Not Reportable 06/05/21 20:35 Rowe Rings Not Reportable 06/05/21 20:35 Josue Cells Not Reportable 06/05/21 20:35 Bite Cells Not Reportable 06/05/21 20:35 Crenated Cell Not Reportable 06/05/21 20:35 Elliptocytes Not Reportable 06/05/21 20:35 Acanthocytes (Spur) Few 06/05/21 20:35 Rouleaux Not Reportable 06/05/21 20:35 Hemoglobin C Crystals Not Reportable 06/05/21 20:35 Schistocytes Rare 06/05/21 20:35 Malaria parasites Not Reportable 06/05/21 20:35 Lázaro Bodies Not Reportable 06/05/21 20:35 Hem Pathologist Commnt No 06/05/21 20:35 PT 16.9 Sec. (12.2-14.9) H 06/05/21 20:35 INR 1.24 (0.87-1.13) H 06/05/21 20:35 APTT 32.1 Sec. (24.2-36.6) 06/05/21 20:35 Thrombin Time 19.7 Sec. (15.1-19.6) H 06/05/21 20:35 D-Dimer 2087.18 ng/mlDDU (0-234) H 06/05/21 21:42 ABG pH 7.300 pH Units (7.350-7.450) L 06/06/21 01:50 ABG pCO2 56.7 mm Hg 06/06/21 01:50 ABG pO2 170.4 mm Hg (80.0-90.0) H 06/06/21 01:50 ABG HCO3 27.3 mmol/L (20.0-26.0) H 06/06/21 01:50 ABG O2 Saturation 98.9 % (95.0-99.0) 06/06/21 01:50 ABG O2 Content 19.4 (0.0-44) 06/06/21 01:50 ABG Base Excess -0.2 mmol/L (-2.0-3.0) 06/06/21 01:50 ABG Hemoglobin 14.0 gm/dl (14.0-18.0) 06/06/21 01:50 ABG Carboxyhemoglobin 1.3 % (0.0-5.0) 06/06/21 01:50 ABG Methemoglobin 0.7 % (0.0-1.5) 06/06/21 01:50 Oxyhemoglobin 97.0 % (95.0-99.0) 06/06/21 01:50 FiO2 100 % 06/06/21 01:50 Sodium 141 mmol/L (137-145) 06/05/21 20:35 Potassium 5.4 mmol/L (3.6-5.0) H 06/05/21 20:35 Chloride 105.5 mmol/L (98-107) 06/05/21 20:35 Carbon Dioxide 24 mmol/L (22-30) 06/05/21 20:35 Anion Gap 17 mmol/L 06/05/21 20:35 BUN 30 mg/dL (9-20) H 06/05/21 20:35 Creatinine 0.9 mg/dL (0.8-1.3) 06/05/21 20:35 Estimated GFR > 60 ml/min 06/05/21 20:35 BUN/Creatinine Ratio 33 % 06/05/21 20:35 Glucose 87 mg/dL (75-100) 06/05/21 20:35 POC Glucose 92 mg/dL (70-105) 06/05/21 20:21 Lactic Acid 3.10 mmol/L (0.7-2.0) H* 06/05/21 20:35 Calcium 9.0 mg/dL (8.4-10.2) 06/05/21 20:35 Ferritin 295.3 ng/mL (30.0-300.0) 06/05/21 21: Total Bilirubin 0.50 mg/dL (0.1-1.2) 06/05/21 20:35 AST 54 units/L (5-40) H 06/05/21 20:35 ALT 36 units/L (7-56) 06/05/21 20:35 Alkaline Phosphatase 52 units/L (35-129) 06/05/21 20:35 Lactate Dehydrogenase 167 units/L (91-180) 06/05/21 21:42 Total Creatine Kinase 149 units/L (55-170) 06/05/21 20:35 CK-MB (CK-2) 1.4 ng/mL (0.0-4.0) 06/05/21 20: CK-MB (CK-2) Rel Index 0.9 (0-4) 06/05/21 20: Troponin T 0.012 ng/mL (0.00-0.029) 06/05/21 20: C-Reactive Protein 6.00 mg/dL (0.00-1.30) H 06/05/21 21:42 NT-Pro-B Natriuret Pep 674.6 pg/mL (0-900) 06/05/21 21: Total Protein 7.1 g/dL (6.3-8.2) 06/05/21 20:35 Albumin 2.4 g/dL (3.9-5) L 06/05/21 20:35 Albumin/Globulin Ratio 0.5 % 06/05/21 20: Plasma/Serum Alcohol < 0.01 % (0-0.07) 06/05/21 20:35 Blood Type AB POSITIVE 06/05/21 20: Antibody Screen Negative 06/05/21 20:35 Microbiology: Microbiology 06/05/21 20: Peripheral/Venous Blood Culture - Preliminary Culture in Progress 06/05/21 20: Peripheral/Venous Blood Culture - Preliminary Culture in Progress - Imaging and Cardiology Chest x-ray: report reviewed CT Scan - head: report reviewed Assessment and Plan VTE prophylaxis?: Mechanical Plan of care discussed with patient/family: Yes - Patient Problems (1) Acute encephalopathy Current Visit: Yes Status: Acute Plan to address problem: Admit the patient to the ICU. Metabolic encephalopathy most likely secondary to pneumonia sepsis and suspected seizure versus stroke. NPO. D5 normal saline at the rate of 100 cc/h. Oxygen by nasal cannula 3 L/min. DuoNeb by nebulizer every 4 hours as needed. Neurology as well as infectious disease evaluation (2) Hypotension Current Visit: Yes Status: Acute Qualifiers: Hypotension type: unspecified hypotension type Qualified Code(s): I95.9 - Hypotension, unspecified Plan to address problem: D5 normal saline at the rate of 100 cc/h. We also put the patient on Levophed drip. Will consult critical care evaluation. (3) Lactic acidosis Current Visit: Yes Status: Acute Plan to address problem: D5 normal saline at the rate of 100 cc/h. Rocephin 2 g IV daily. Zithromax 500 mg IV daily. Recheck lactic acid in 4 hours. But blood cultures sputum culture. Infectious disease evaluation (4) Hypoxia Current Visit: Yes Status: Acute Plan to address problem: Oxygen via nasal cannula 3 L/min. DuoNeb by nebulizer every 4 hours. Albuterol via nebulizer every 4 hours as needed (5) Sepsis Current Visit: Yes Status: Acute Qualifiers: Sepsis type: sepsis due to unspecified organism Sepsis acute organ dysfunction status: unspecified Qualified Code(s): A41.9 - Sepsis, unspecified organism Plan to address problem: D5 normal saline at the rate of 100 cc/h. Rocephin 2 g IV daily. Zithromax 500 mg IV daily. Recheck lactic acid in 4 hours. But blood cultures sputum culture. Infectious disease evaluation (6) Suspected 2019 novel coronavirus infection Current Visit: Yes Status: Acute Plan to address problem: Oxygen via nasal cannula 3 to per minute. DuoNeb by nebulizer every 4 hours. Albuterol via nebulizer every 4 hours as needed. Rocephin 2 g IV daily. Zit hromax 500 mg IV daily. Dexamethasone 6 mg IV daily. Follow Covid inflammatory marker and Covid PCR. Infectious disease evaluation (7) Stroke Current Visit: Yes Status: Acute Plan to address problem: Patient is seen and evaluated by telemetry neurology for stroke versus seizure. Lipitor 40 mg p.o. daily. MRI of the brain and MRA of the brain and neck with and without contrast. Echocardiogram. Will consult neurology for evaluation. PT OT any speech evaluation. (8) DVT prophylaxis Current Visit: Yes Status: Acute Plan to address problem: SCD for DVT prophylaxis because of brain surgery. Pepcid 20 mg IV every 12 hours. Pepcid patient is a full code
[2021-06-06] MEDS ORDERED: hydrALAZINE 20 MG/1 ML INJ IV PRN (03:08)
[2021-06-06 05:52] LABS: Bilirubin,Urine NEG (Negative); Blood,Urine NEG (Negative); Color,Urine Yellow (Yellow); Hyaline Casts,Urine 1 /LPF; Protein,Urine <15 mg/dL mg/dL (Negative); RBC,Urine < 1.0 /HPF (0.0-6.0); Urobilinogen,Urine < 2.0 mg/dL (<2.0)
[2021-06-06 05:55] LABS: Amphetamine Screen,Urine Negative; Benzodiazepines Screen,Urine Negative; Cannabinoid Screen,Urine Negative; Cocaine Screen,Urine Negative; Methadone Screen,Urine Negative; Opiate Screen,Urine Negative
--- NOTE | 2021-06-06 08:29 | Progress Note ---
Assessment and Plan Assessment and plan: HPI: History of present illness: 80-year-old male with history of a brain mass with subsequent surgery done in February of last year at [facility] was brought to the emergency room because of sudden alteration in mental status. Since the time of that surgery the patient has been having some instability with ambulation, some mild slurred speech, and gets food and medication through a PEG tube. However at baseline, prior to this afternoon, the patient is normally awake, alert, oriented, AAO x3 and able to assist with some of his ADLs. Patient son says that the patient went for a nap late this afternoon and when he checked on him he was not responding. Patient eyes were open but essentially was unresponsive which is what prompted him to call for EMS. The patient's family has been updated regarding his lab and imaging results and plan for admission to the ICU. Hospital Course: 06/06: Currently on levophed. Oropharynx very dry. Spoke with con Quesada ([phone]) who is a nurse practitioner as well. 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 Last February he was at [facility] for another surgery. After the surgery the patient had lost the swallow reflex and has had persistent dysphagia since then. He has had a PEG tube in that time.. Patient has had persistent hyponatremia and weight loss requiring tube feeds. He has had multiple repeat admissions for pneumonia and urinary tract infection. He was last hospitalized at [facility] for urinary tract infection. Per the daughter he also has a history of repeated falls. The daughter states that he does not have dementia. 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 Afterwards he is usual only alert and oriented x4 however his speech is sluggish due to issues with his swallow reflex. The daughter also stated that he has had repeat MRI scans since his FINANCIAL SALES ASSISTANT shunt placement back in 2007 and that it is MRI safe. She also states that the patient has persistently low blood pressure. His primary care doctor had initiated midodrine 5 mg p.o. 3 times daily. The patient's baseline systolic blood pressure per the daughter is a usually in the 90s systolic. I discussed the patient's entire case with the daughter and she expressed grati tude for the update from our discussion. She states that if the care staff would need any questions please contact her number that is documented in the chart and my note currently. Currently treating the patient for septic shock due to presumed CAP Vs COVID pneumonia. Patient is unvaccinated for covid currently. Per the daughter no one has been sick at home. Continue empiric antibiotic therapy. Wean pressors as tolerated. Systolic blood pressure of 90 acceptable. Will initiate home midodrine 5 mg p.o. 3 times daily. High suspicion for delirium rather than stroke. Doubt that this is stroke but if MRI is desired it appears that it should be okay to complete even if patient has FINANCIAL SALES ASSISTANT shunt based on my discussion with the daughter. Assessment and Plan: # Acute encephalopathy (improving) -CT head shows no focal mass, hemorrhage no hydrocephalus, or acute large territorial infarct. Stroke versus seizure. Recommends full stroke work-up Unable to complete MRI as patient has FINANCIAL SALES ASSISTANT shunt in place. Admit the patient to the ICU. Metabolic encephalopathy most likely secondary to pneumonia sepsis and suspected seizure versus stroke. NPO. D5 normal saline at the rate of 100 cc/h. Oxygen by nasal cannula 3 L/min. DuoNeb by nebulizer every 4 hours as needed. Neurology as well as infectious disease evaluation # Septic Shock POA -Septic shock 2/2 to pneumonia, on supplemental O2 NC: . - thick white secretions expectorated noted on encounter - mild leukocytosis of 13,000, mild hypokalemia with potassium level of 5.4, lactic acidosis, elevated inflammatory markers of D-dimer, CRP, and mild elevation in his AST. - The patient continues to have hypotension after 2 L of IV fluid. A right femoral central venous catheter has been placed and the patient has been started on pressors. - Chest x-ray shows extensive bilateral patchy opacities concerning for pneumonia. - baseline systolic pressure in 90's. - resume home - cotninue ceftraixone, azithromycin for CAP coverage - decadron 6 mg IV x 10 d - ID consultation - CCM consultation - D5 normal saline at the rate of 100 cc/h. We also put the patient on Levophed drip. # Suspected 2019 novel coronavirus infection - Family says that he is not vaccinated against COVID-19 and therefore has been made a PUI. - Oxygen via nasal cannula 3 to per minute. - DuoNeb by nebulizer every 4 hours. - Rocephin 2 g IV daily. Zithromax 500 mg IV daily. - Dexamethasone 6 mg IV daily. - Follow Covid inflammatory marker and Covid PCR. - Infectious disease evaluation #Chronic Dysphagia - dysphagia, slurred speech since brain surgery Feb 2021 - has PEG - NPO - recommend oral care given patient dry oropharynx. # Suspected Stroke - Patient is seen and evaluated by telemetry neurology for stroke versus seizure. - Patient was shaking per son, however daughter states it may have been chills. Patinet had eyes open and following commands but not talking - Dysphagia/slurred speech is chornic, has been since February 2021 surgery - Fall risk - Lipitor 40 mg p.o. daily. - MRI of the brain and MRA of the brain and neck with and without contrast (FINANCIAL SALES ASSISTANT shunt is MRI safe per daughter). - Echocardiogram. - consult neurology - PT OT any speech evaluation. # Lactic acidosis - D5 normal saline at the rate of 100 cc/h. Rocephin 2 g IV daily. Zithromax 500 mg IV daily. Recheck lactic acid in 4 hours. But blood cultures sputum culture. Infectious disease evaluation # Hyperkalemia - potassium 5.4, BUN 30 creatinine 0.9 - monitor. # Hypoxia Oxygen via nasal cannula 3 L/min. DuoNeb by nebulizer every 4 hours. Albuterol via nebulizer every 4 hours as needed # Sepsis POA D5 normal saline at the rate of 100 cc/h. Rocephin 2 g IV daily. Zithromax 500 mg IV daily. Recheck lactic acid in 4 hours. But blood cultures sputum culture. Infectious disease evaluation #Moderate protein calorie malnutrition - Vital AF tube feed supplementation #History of brain surgery for benign tumor - Last procedure Feb 2021 - had procedure in 2007 for tumor with evp strategy shunt placement due to hydrocephalus - [facility] - please refer to hospital course 06/06 encounter. # DVT prophylaxis SCD for DVT prophylaxis because of brain surgery. Pepcid 20 mg IV every 12 hours. Pepcid patient is a full code The high probability of a clinically significant, sudden or life threatening deterioration of the [pulmonary, neuro] system(s) required my full and direct attention, intervention and personal management. The aggregate critical care time was [60] minutes. This time is in addition to time spent performing r eported procedures but includes the following: [x] Data Review and interpretation [x] Patient assessment and monitoring of vital signs [x] Documentation [x] Medication orders and management History Interval history: Resting comfortably on encounter, desheveled gentleman. AOx2. Not oriented to place or situation. Patient has slurred speech, admits to difficulty swallowing. Not in any distress. safety relief valve technician completing US at bedside. Hospitalist Physical - Physical exam Narrative exam: Physical Exam: VITAL SIGNS: Reviewed. GENERAL: The patient appears normally developed, Vital signs as documented. descheveled, older than appears. HEAD: No signs of head trauma. EYES: Pupils are equal. Extraocular motions intact. EARS: Hearing grossly intact. MOUTH: Oropharynx is normal. NECK: No adenopathy, no JVD. CHEST: Chest with clear breath sounds bilaterally. No wheezes, rales, or rhonchi. CARDIAC: Regular rate and rhythm. S1 and S2, without murmurs, gallops, or rubs. VASCULAR: No Edema. Peripheral pulses normal and equal in all extremities. ABDOMEN: Soft, non tender and non distended. No rebound or guarding, and no masses palpated. Bowel Sounds normal. MUSCULOSKELETAL: Good range of motion of all major joints. Extremities without clubbing, cyanosis or edema. NEUROLOGIC EXAM: Alert and oriented x 2. no focal sensory or strength deficits. follows commands PSYCHIATRIC: dementia SKIN: detail exam as documented in skin assessment - Constitutional Vitals: Temp Pulse Resp BP Pulse Ox 97.9 F 97 H 24 107/71 98 06/06/21 06:00 06/06/21 08:00 06/06/21 08:00 06/06/21 08:00 06/06/21 08:00 General appearance: Present: no acute distress, well-nourished HEART Score - HEART Score Troponin: Troponin T 0.012 ng/mL (0.00-0.029) 06/05/21 20:35 Results - Labs CBC & Chem 7: 06/06/21 09:06 06/06/21 09:06 Labs: Laboratory Last Values WBC 13.6 K/mm3 (4.5-11.0) H 06/05/21 20:35 RBC 4.12 M/mm3 (3.65-5.03) 06/05/21 20:35 Hgb 10.7 gm/dl (11.8-15.2) L 06/05/21 20:35 Hct 35.9 % (35.5-45.6) 06/05/21 20:35 MCV 87 fl (84-94) 06/05/21 20:35 MCH 26 pg (28-32) L 06/05/21 20:35 MCHC 30 % (32-34) L 06/05/21 20:35 RDW 16.9 % (13.2-15.2) H 06/05/21 20:35 Plt Count 287 K/mm3 (140-440) 06/05/21 20:35 Lymph % (Auto) Roads Supervisor 06/05/21 20:35 [place] % (Auto) Roads Supervisor 06/05/21 20:35 Eos % (Auto) Roads Supervisor 06/05/21 20:35 Baso % (Auto) Roads Supervisor 06/05/21 20:35 Lymph # (Auto) Roads Supervisor 06/05/21 20:35 [place] # (Auto) Roads Supervisor 06/05/21 20:35 Eos # (Auto) Roads Supervisor 06/05/21 20:35 Baso # (Auto) Roads Supervisor 06/05/21 20:35 Add Manual Diff Complete 06/05/21 20:35 Total Counted 100 06/05/21 20:35 Seg Neutrophils % Roads Supervisor 06/05/21 20:35 Seg Neuts % (Manual) 76.0 % (40.0-70.0) H 06/05/21 20:35 Band Neutrophils % 21.0 % 06/05/21 20:35 Lymphocytes % (Manual) 1.0 % (13.4-35.0) L 06/05/21 20:35 Reactive Lymphs % (Man) 0 % 06/05/21 20:35 Monocytes % (Manual) 0 % (0.0-7.3) 06/05/21 20:35 Eosinophils % (Manual) 0 % (0.0-4.3) 06/05/21 20:35 Basophils % (Manual) 0 % (0.0-1.8) 06/05/21 20:35 Metamyelocytes % 0 % 06/05/21 20:35 Myelocytes % 2.0 % 06/05/21 20:35 Promyelocytes % 0 % 06/05/21 20:35 Blast Cells % 0 % 06/05/21 20:35 Nucleated RBC % Not Reportable 06/05/21 20:35 Seg Neutrophils # Roads Supervisor 06/05/21 20:35 Seg Neutrophils # Man 10.3 K/mm3 (1.8-7.7) H 06/05/21 20:35 Band Neutrophils # 2.9 K/mm3 06/05/21 20:35 Lymphocytes # (Manual) 0.1 K/mm3 (1.2-5.4) L 06/05/21 20:35 Abs React Lymphs (Man) 0.0 K/mm3 06/05/21 20:35 Monocytes # (Manual) 0.0 K/mm3 (0.0-0.8) 06/05/21 20:35 Eosinophils # (Manual) 0.0 K/mm3 (0.0-0.4) 06/05/21 20:35 Basophils # (Manual) 0.0 K/mm3 (0.0-0.1) 06/05/21 20:35 Metamyelocytes # 0.0 K/mm3 06/05/21 20:35 Myelocytes # 0.3 K/mm3 06/05/21 20:35 Promyelocytes # 0.0 K/mm3 06/05/21 20:35 Blast Cells # 0.0 K/mm3 06/05/21 20:35 WBC Morphology Not Reportable 06/05/21 20:35 Hypersegmented Neuts Not Reportable 06/05/21 20:35 Hyposegmented Neuts Not Reportable 06/05/21 20:35 Hypogranular Neuts Not Reportable 06/05/21 20:35 Smudge Cells Not Reportable 06/05/21 20:35 Toxic Granulation Not Reportable 06/05/21 20:35 Toxic Vacuolation Not Reportable 06/05/21 20:35 Dohle Bodies Not Reportable 06/05/21 20:35 Pelger-Huet Anomaly Not Reportable 06/05/21 20:35 Pasha Rods Not Reportable 06/05/21 20:35 Platelet Estimate Consistent w auto 06/05/21 20:35 Clumped Platelets Not Reportable 06/05/21 20:35 Plt Clumps, EDTA Not Reportable 06/05/21 20:35 Large Platelets Not Reportable 06/05/21 20:35 Giant Platelets Not Reportable 06/05/21 20:35 Platelet Satelliting Not Reportable 06/05/21 20:35 Plt Morphology Comment Not Reportable 06/05/21 20:35 RBC Morphology Not Reportable 06/05/21 20:35 Dimorphic RBCs Not Reportable 06/05/21 20:35 Polychromasia Not Reportable 06/05/21 20:35 Hypochromasia 1+ 06/05/21 20:35 Poikilocytosis 1+ 06/05/21 20:35 Anisocytosis Not Reportable 06/05/21 20:35 Microcytosis Not Reportable 06/05/21 20:35 Macrocytosis Not Reportable 06/05/21 20:35 Spherocytes Not Reportable 06/05/21 20:35 Pappenheimer Bodies Not Reportable 06/05/21 20:35 Sickle Cells Not Reportable 06/05/21 20:35 Target Cells Few 06/05/21 20:35 Tear Drop Cells Not Reportable 06/05/21 20:35 Ovalocytes Not Reportable 06/05/21 20:35 Helmet Cells Not Reportable 06/05/21 20:35 [place] Bodies Not Reportable 06/05/21 20:35 [place] Rings Not Reportable 06/05/21 20:35 [place] Cells Not Reportable 06/05/21 20:35 Bite Cells Not Reportable 06/05/21 20:35 Crenated Cell Not Reportable 06/05/21 20:35 Elliptocytes Not Reportable 06/05/21 20:35 Acanthocytes (Spur) Few 06/05/21 20:35 Rouleaux Not Reportable 06/05/21 20:35 Hemoglobin C Crystals Not Reportable 06/05/21 20:35 Schistocytes Rare 06/05/21 20:35 Malaria parasites Not Reportable 06/05/21 20:35 Lázaro Bodies Not Reportable 06/05/21 20:35 Hem Pathologist Commnt No 06/05/21 20:35 PT 16.9 Sec. (12.2-14.9) H 06/05/21 20:35 INR 1.24 (0.87-1.13) H 06/05/21 20:35 APTT 32.1 Sec. (24.2-36.6) 06/05/21 20:35 Thrombin Time 19.7 Sec. (15.1-19.6) H 06/05/21 20:35 D-Dimer 2087.18 ng/mlDDU (0-234) H 06/05/21 21:42 ABG pH 7.300 pH Units (7.350-7.450) L 06/06/21 01:50 ABG pCO2 56.7 mm Hg 06/06/21 01:50 ABG pO2 170.4 mm Hg (80.0-90.0) H 06/06/21 01:50 ABG HCO3 27.3 mmol/L (20.0-26.0) H 06/06/21 01:50 ABG O2 Saturation 98.9 % (95.0-99.0) 06/06/21 01:50 ABG O2 Content 19.4 (0.0-44) 06/06/21 01:50 ABG Base Excess -0.2 mmol/L (-2.0-3.0) 06/06/21 01:50 ABG Hemoglobin 14.0 gm/dl (14.0-18.0) 06/06/21 01:50 ABG Carboxyhemoglobin 1.3 % (0.0-5.0) 06/06/21 01:50 ABG Methemoglobin 0.7 % (0.0-1.5) 06/06/21 01:50 Oxyhemoglobin 97.0 % (95.0-99.0) 06/06/21 01:50 FiO2 100 % 06/06/21 01:50 Sodium 141 mmol/L (137-145) 06/05/21 20:35 Potassium 5.4 mmol/L (3.6-5.0) H 06/05/21 20:35 Chloride 105.5 mmol/L (98-107) 06/05/21 20:35 Carbon Dioxide 24 mmol/L (22-30) 06/05/21 20:35 Anion Gap 17 mmol/L 06/05/21 20:35 BUN 30 mg/dL (9-20) H 06/05/21 20:35 Creatinine 0.9 mg/dL (0.8-1.3) 06/05/21 20:35 Estimated GFR > 60 ml/min 06/05/21 20:35 BUN/Creatinine Ratio 33 % 06/05/21 20:35 Glucose 87 mg/dL (75-100) 06/05/21 20:35 POC Glucose 92 mg/dL (70-105) 06/05/21 20:21 Lactic Acid 3.10 mmol/L (0.7-2.0) H* 06/05/21 20:35 Calcium 9.0 mg/dL (8.4-10.2) 06/05/21 20:35 Ferritin 295.3 ng/mL (30.0-300.0) 06/05/21 21:42 Total Bilirubin 0.50 mg/dL (0.1-1.2) 06/05/21 20:35 AST 54 units/L (5-40) H 06/05/21 20:35 ALT 36 units/L (7-56) 06/05/21 20:35 Alkaline Phosphatase 52 units/L (35-129) 06/05/21 20:35 Lactate Dehydrogenase 167 units/L (91-180) 06/05/21 21:42 Total Creatine Kinase 149 units/L (55-170) 06/05/21 20:35 CK-MB (CK-2) 1.4 ng/mL (0.0-4.0) 06/05/21 20:35 CK-MB (CK-2) Rel Index 0.9 (0-4) 06/05/21 20:35 Troponin T 0.012 ng/mL (0.00-0.029) 06/05/21 20:35 C-Reactive Protein 6.00 mg/dL (0.00-1.30) H 06/05/21 21:42 NT-Pro-B Natriuret Pep 674.6 pg/mL (0-900) 06/05/21 21:42 Total Protein 7.1 g/dL (6.3-8.2) 06/05/21 20:35 Albumin 2.4 g/dL (3.9-5) L 06/05/21 20:35 Albumin/Globulin Ratio 0.5 % 06/05/21 20:35 Urine Color Yellow (Yellow) 06/06/21 05:41 Urine Turbidity Clear (Clear) 06/06/21 05:41 Urine pH 5.0 (5.0-7.0) 06/06/21 05:41 Ur Specific M[place]ar[place] 1.039 (1.003-1.030) H 06/06/21 05:41 Urine Protein <15 mg/dl mg/dL (Negative) 06/06/21 05:41 Urine Glucose (UA) Neg mg/dL (Negative) 06/06/21 05:41 Urine Ketones Neg mg/dL (Negative) 06/06/21 05:41 Urine Blood Neg (Negative) 06/06/21 05:41 Urine Nitrite Neg (Negative) 06/06/21 05:41 Urine Bilirubin Neg (Negative) 06/06/21 05:41 Urine Urobilinogen < 2.0 mg/dL (<2.0) 06/06/21 05:41 Ur Leukocyte Esterase Neg (Negative) 06/06/21 05:41 Urine WBC (Auto) 1.0 /HPF (0.0-6.0) 06/06/21 05:41 Urine RBC (Auto) < 1.0 /HPF (0.0-6.0) 06/06/21 05:41 Hyaline Casts 1 /LPF 06/06/21 05:41 Urine Opiates Screen Negative 06/06/21 05:41 Urine Methadone Screen Negative 06/06/21 05:41 Ur Barbiturates Screen Negative 06/06/21 05:41 Ur Phencyclidine Scrn Negative 06/06/21 05:41 Ur Amphetamines Screen Negative 06/06/21 05:41 U Benzodiazepines Scrn Negative 06/06/21 05:41 Urine Cocaine Screen Negative 06/06/21 05:41 U Marijuana (THC) Screen Negative 06/06/21 05:41 Drugs of Abuse Note Disclamer 06/06/21 05:41 Plasma/Serum Alcohol < 0.01 % (0-0.07) 06/05/21 20:35 Blood Type AB POSITIVE 06/05/21 20:35 Antibody Screen Negative 06/05/21 20:35 Microbiology: Microbiology 06/05/21 20:35 Peripheral/Venous Blood Culture - Preliminary Culture in Progress 06/05/21 20:35 Peripheral/Venous Blood Culture - Preliminary Culture in Progress Active Medications - Current Medications Current Medications: Generic Name Dose Route Start Last Admin Trade Name Freq PRN Reason Stop Dose Admin Acetaminophen 650 mg 06/06/21 02:49 Acetaminophen 325 Mg Tab PO Q4H PRN Pain MILD(1-3)/Fever >100.5/LOPEZ Albuterol 2.5 mg 06/06/21 02:49 Albuterol 2.5 Mg/3 Ml Nebu IH Q3HRT PRN Shortness Of Breath Albuterol/Ipratropium 1 ampul 06/06/21 08:00 Ipratropium/Albuterol Sulfate 3 Ml Ampul.Neb IH Q6HRT [facility] Atorvastatin Calcium 40 mg 06/06/21 22:00 Atorvastatin 40 Mg Tab PO QHS [facility] Dexamethasone 6 mg 06/06/21 10:00 Dexamethasone 4 Mg/Ml Vial IV DAILY [facility] Famotidine 20 mg 06/06/21 10:00 Famotidine 20 Mg/2 Ml Inj IV BID [facility] Hydralazine HCl 10 mg 06/06/21 03:08 Hydralazine 20 Mg/1 Ml Inj IV Q6H PRN Blood Pressure Hydromorphone HCl 0.5 mg 06/06/21 02:49 Hydromorphone 1 Mg/1 Ml Inj IV Q3H PRN Pain , Severe (7-10) NORepinephrine/NS 8 MG-250 ML 8 mg in 250 mls @ 3.75 mls/hr 06/05/21 23:45 06/06/21 06:00 Norepinephrine/Ns 8 Mg-250 Ml (Double Conc) IV 0 mcg/min TITRATE [facility] 0 mls/hr Titration Protocol 2 MCG/MIN Dextrose/Sodium Chloride 1,000 mls @ 100 mls/hr 06/06/21 03:00 D5ns IV DIRECT [facility] Ceftriaxone Sodium 2 gm in 100 mls @ 200 mls/hr 06/06/21 22:00 Rocephin/Ns 2 Gm/100 Ml IV Q24H [facility] Protocol Azithromycin 500 mg in 250 mls @ 250 mls/hr 06/06/21 22:00 Zithromax/Ns IV Q24H [facility] Protocol Labetalol HCl 10 mg 06/06/21 02:49 Labetalol 20 Mg/4 Ml Inj IV Q5MIN PRN to maintain SBP < 180 Morphine Sulfate 2 mg 06/06/21 02:49 Morphine 2 Mg/1 Ml Inj IV Q4H PRN Pain, Moderate (4-6) Ondansetron HCl 4 mg 06/06/21 02:49 Ondansetron 4 Mg/2 Ml Inj IV Q8H PRN Nausea And Vomiting Sodium Chloride 10 ml 06/06/21 10:00 Sodium Chloride 0.9% 10 Ml Flush Syringe IV BID [facility] Sodium Chloride 10 ml 01/31/22 02:49 Sodium Chloride 0.9% 10 Ml Flush Syringe IV PRN PRN LINE FLUSH
[2021-06-06] MEDS: IPRATROPIUM/ALBUTEROL SULFATE 3 ML AMPUL.NEB IH SCH ×2 (09:00→16:40)
--- NOTE | 2021-06-06 09:40 | Consultation ---
History of Present Illness Consult date: 06/06/21 Reason for Consult: Altered menttaion, hx of brain mass with craniotomy and shunt History of present illness: Altered mental status History of present illness: 80-year-old male with history of a brain mass with subsequent surgery done in February of last year at [facility] was brought to the emergency room because of sudd en alteration in mental status. Since the time of that surgery the patient has been having some instability with ambulation, some mild slurred speech, and gets food and medication through a PEG tube. However at baseline, prior to this afternoon, the patient is normally awake, alert, oriented, AAO x3 and able to assist with some of his ADLs. Patient son says that the patient went for a nap late this afternoon and when he checked on him he was not responding. Patient eyes were open but essentially was unresponsive which is what prompted him to call for EMS. In the emergency room patient is seen and evaluated by telemetry neurology. CT head shows no focal mass, hemorrhage no hydrocephalus, or acute large territorial infarct. Stroke versus seizure. Recommends full stroke work-up patient WBC is 13.6, potassium 5.4, BUN 30 creatinine 0.9, lactic acid 3.10. Chest x-ray shows extensive bilateral patchy opacities concerning for pneumonia. Blood cultures have been sent and the patient has been started on antibiotics and given a dose of Decadron. Family says that he is not vaccinated against COVID-19 and therefore has been made a PUI. Labs show a mild leukocytosis of 13,000, mild hypokalemia with potassium level of 5.4, lactic acidosis, elevated inflammatory markers of D-dimer, CRP, and mild elevation in his AST. The patient continues to have hypotension after 2 L of IV fluid. A right femoral central venous catheter has been placed and the patient has been started on pressors. The patient's family has been updated regarding his lab and imaging results and plan for admission to the ICU. Ax per PCP - Currently on levophed. Oropharynx very dry. Spoke with con Quesada ([phone]) who is a nurse practitioner as well. 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 Last February he was at [facility] for another surgery. After the surgery the patient had lost the swallow reflex and has had persistent dysphagia since then. He has had a PEG tube in that time.. Patient has had persistent hyponatremia and weight loss requiring tube feeds. He has had multiple repeat admissions for pneumonia and urinary tract infection. He was last hospitalized at [facility] for urinary tract infection. Per the daughter he also has a history of repeated falls. The daughter states that he does not have dementia. 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 Afterwards he is usual only alert and oriented x4 however his speech is sluggish due to issues with his swallow reflex. The daughter also stated that he has had repeat MRI scans since his TEST DESK OPERATOR shunt placement back in 2007 and that it is MRI safe. She also states that the patient has persistently low blood pressure. His primary care doctor had initiated midodrine 5 mg p.o. 3 times daily. The patient's baseline systolic blood pressure per the daughter is a usually in the 90s systolic. I discussed the patient's entire case with the daughter and she expressed gratitude for the update from our discussion. She states that if the care staff would need any questions please contact her number that is documented in the chart and my note currently. 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 UDS is negative Past History Past Medical History: other (BRAIN TUMOR WITH SHUNT) Medications and Allergies Allergies Allergy/AdvReac Type Severity Reaction Status Date / Time No Known Allergies Allergy Verified 09/12/19 17:00 Home Medications Medication Instructions Recorded Confirmed Last Taken Type cephALEXin [Keflex] 500 mg PO BID #14 capsule 07/23/14 Unknown Rx Acetaminophen [Non-Aspirin Extra 500 mg PO Q6HR PRN #30 tablet 02/24/19 Unknown Rx Strength] Metoclopramide [Reglan] 10 mg PO QID PRN #30 tablet 02/24/19 Unknown Rx Active Meds: Active Medications NORepinephrine/NS 8 MG-250 ML (Norepinephrine/Ns 8 Mg-250 Ml (Double Conc)) 8 mg in 250 mls @ 3.75 mls/hr IV TITRATE JACKY; Protocol Last Admin: 06/06/21 00:00 Dose: 2 mcg/min, 3.75 mls/hr Review of Systems All systems: negative Constitutional: fatigue, lethargy Past History Past Medical History: other (BRAIN TUMOR WITH SHUNT) Medications and Allergies Allergies Allergy/AdvReac Type Severity Reaction Status Date / Time No Known Allergies Allergy Verified 09/12/19 17:00 Home Medications Medication Instructions Recorded Confirmed Last Taken Type cephALEXin [Keflex] 500 mg PO BID #14 capsule 07/23/14 Unknown Rx Acetaminophen [Non-Aspirin Extra 500 mg PO Q6HR PRN #30 tablet 02/24/19 Unknown Rx Strength] Metoclopramide [Reglan] 10 mg PO QID PRN #30 tablet 02/24/19 Unknown Rx Active Meds: Active Medications Acetaminophen (Acetaminophen 325 Mg Tab) 650 mg PO Q4H PRN PRN Reason: Pain MILD(1-3)/Fever >100.5/LOPEZ Albuterol (Albuterol 2.5 Mg/3 Ml Nebu) 2.5 mg IH Q3HRT PRN PRN Reason: Shortness Of Breath Albuterol/Ipratropium (Ipratropium/Albuterol Sulfate 3 Ml Ampul.Neb) 1 ampul IH Q6HRT JACKY Atorvastatin Calcium (Atorvastatin 40 Mg Tab) 40 mg PO QHS JACKY Dexamethasone (Dexamethasone 4 Mg/Ml Vial) 6 mg IV DAILY JACKY Famotidine (Famotidine 20 Mg/2 Ml Inj) 20 mg IV BID JACKY Hydralazine HCl (Hydralazine 20 Mg/1 Ml Inj) 10 mg IV Q6H PRN PRN Reason: Blood Pressure Hydromorphone HCl (Hydromorphone 1 Mg/1 Ml Inj) 0.5 mg IV Q3H PRN PRN Reason: Pain , Severe (7-10) NORepinephrine/NS 8 MG-250 ML (Norepinephrine/Ns 8 Mg-250 Ml (Double Conc)) 8 mg in 250 mls @ 3.75 mls/hr IV TITRATE JACKY; Protocol Last Titration: 06/06/21 06:00 Dose: 0 mcg/min, 0 mls/hr Dextrose/Sodium Chloride (D5ns) 1,000 mls @ 100 mls/hr IV DIRECT JACKY Ceftriaxone Sodium (Rocephin/Ns 2 Gm/100 Ml) 2 gm in 100 mls @ 200 mls/hr IV Q24H JACKY; Protocol Azithromycin (Zithromax/Ns) 500 mg in 250 mls @ 250 mls/hr IV Q24H JACKY; Protocol Labetalol HCl (Labetalol 20 Mg/4 Ml Inj) 10 mg IV Q5MIN PRN PRN Reason: to maintain SBP < 180 Morphine Sulfate (Morphine 2 Mg/1 Ml Inj) 2 mg IV Q4H PRN PRN Reason: Pain, Moderate (4-6) Ondansetron HCl (Ondansetron 4 Mg/2 Ml Inj) 4 mg IV Q8H PRN PRN Reason: Nausea And Vomiting Sodium Chloride (Sodium Chloride 0.9% 10 Ml Flush Syringe) 10 ml IV BID JACKY Sodium Chloride (Sodium Chloride 0.9% 10 Ml Flush Syringe) 10 ml IV PRN PRN PRN Reason: LINE FLUSH Physical Examination - Vital Signs Vital Signs: Vital Signs Pulse Resp BP Pulse Ox 140 H 24 78/43 72 L 06/05/21 20:16 06/05/21 20:16 06/05/21 20:16 06/05/21 20:16 - Constitutional General appearance: uncomfortable - EENT EENT: Present: PERRL, mucous membranes moist - Respiratory Respiratory: Present: lungs clear, rhonchi - Cardiovascular Cardiovascular: Present: regular rate, normal S1, normal S2 Extremities: Present: no peripheral edema bilatateraly, no clubbing, cyanosis - Gastrointestinal Gastrointestinal: Present: normoactive bowel sounds - Integumentary Integumentary: Present: normal - Neurologic Cranial nerve examination: PERRL, EOMI, intact Speech examination: other (unclear speech) Detailed motor examination: grossly full strength in Results - Laboratory Findings CBC and BMP: 06/06/21 09:06 06/06/21 09:06 Abnormal Lab Findings: Abnormal Labs 06/05/21 06/05/21 06/05/21 20:35 20:35 20:35 WBC 13.6 H Hgb 10.7 L MCH 26 L MCHC 30 L RDW 16.9 H Seg Neuts % (Manual) 76.0 H Lymphocytes % (Manual) 1.0 L Seg Neutrophils # Man 10.3 H Lymphocytes # (Manual) 0.1 L PT 16.9 H INR 1.24 H Thrombin Time 19.7 H D-Dimer ABG pH ABG pO2 ABG HCO3 Potassium 5.4 H BUN 30 H Lactic Acid AST 54 H C-Reactive Protein Albumin 2.4 L Ur Specific [place] 06/05/21 06/05/21 06/05/21 20:35 21:42 21:42 WBC Hgb MCH MCHC RDW Seg Neuts % (Manual) Lymphocytes % (Manual) Seg Neutrophils # Man Lymphocytes # (Manual) PT INR Thrombin Time D-Dimer 2087.18 H ABG pH ABG pO2 ABG HCO3 Potassium BUN Lactic Acid 3.10 H* AST C-Reactive Protein 6.00 H Albumin Ur Specific [place] 06/06/21 06/06/21 01:50 05:41 WBC Hgb MCH MCHC RDW Seg Neuts % (Manual) Lymphocytes % (Manual) Seg Neutrophils # Man Lymphocytes # (Manual) PT INR Thrombin Time D-Dimer ABG pH 7.300 L ABG pO2 170.4 H ABG HCO3 27.3 H Potassium BUN Lactic Acid AST C-Reactive Protein Albumin Ur Specific [place] 1.039 H Assessment and Plan Assessment and Plan 80-year-old male with history of a brain mass with subsequent surgery done in February of last year at [facility] was brought to the emergency room because of sudden alteration in mental status. Since the time of that surgery the patient has been having some instability with ambulation, some mild slurred speech, and gets food and medication through a PEG tube. However at baseline, prior to this afternoon, the patient is normally awake, alert, oriented, AAO x3 and able to assist with some of his ADLs. Patient son says that the patient went for a nap late this afternoon and when he checked on him he was not responding. Patient eyes were open but essentially was unresponsive which is what prompted him to call for EMS. - Patient Problems # Acute encephalopathy - resolved he is currently alert interactive to some extent -he is slightly agitated restrained -Ct brain is noted with area old remote craniotomy and pseudo meningiocele/shunt placment -CVA work up -Admit the patient to the ICU. - Encephalopathy most likely secondary to pneumonia sepsis possible suspected seizure versus stroke. - NPO. - D5 normal saline at the rate of 100 cc/h. - Oxygen by nasal cannula 3 L/min. - DuoNeb by nebulizer every 4 hours as needed. -Seizure precaution -Suggest start keppra at 500 mg Iv BID -- -EEG -MRI brain with gd -Treat underlying infection # Hypotension -D5 normal saline at the rate of 100 cc/h. - We also put the patient on Levophed drip. # Lactic acidosis and sepsis -D5 normal saline at the rate of 100 cc/h. - Rocephin 2 g IV daily. - Zithromax 500 mg IV daily. - Recheck lactic acid in 4 hours. - But blood cultures sputum culture. - Infectious disease evaluation # Hypoxia -Oxygen via nasal cannula 3 L/min. - DuoNeb by nebulizer every 4 hours. -Albuterol via nebulizer every 4 hours as needed # Suspected 2019 novel coronavirus infection -Oxygen via nasal cannula 3 to per minute. -DuoNeb by nebulizer every 4 hours. Albuterol via nebulizer every 4 hours as needed. - Rocephin 2 g IV daily. Zithromax 500 mg IV daily. - Dexamethasone 6 mg IV daily. - Follow Covid inflammatory marker and Covid PCR. - Infectious disease evaluation # DVT prophylaxis -SCD for DVT prophylaxis because of brain surgery. - Pepcid 20 mg IV every 12 hours. -Pepcid patient is a full code will follow
[2021-06-06] MEDS: FAMOTIDINE 20 MG/2 ML INJ IV SCH ×2 (09:55→23:48)
[2021-06-06] MEDS: dexAMETHasone 4 MG/ML VIAL IV SCH (09:55)
[2021-06-06 10:34] LABS: Alanine Aminotransferase 34 units/L (7-56); Albumin 2.8 g/dL (3.9-5); BUN/Creatinine Ratio 30; Blood Urea Nitrogen 24 mg/dL (9-20); Calcium 8.7 mg/dL (8.4-10.2); Hemolysis Index 0
[2021-06-06 10:40] LABS: Mean Corpuscular HGB Conc 30 % (32-34); Mean Corpuscular Volume 85 fl (84-94); Platelet Count 334 K/mm3 (140-440); Red Blood Count 3.92 M/mm3 (3.65-5.03); Red Cell Distribution Width 16.6 % (13.2-15.2)
[2021-06-06 10:50] LABS: Hematocrit 33.5 % (35.5-45.6)
--- NOTE | 2021-06-06 11:42 | Electrocardiograph Report ---
[facility] Test Date: 2021-06-05 Test Time: 20:42:11 Pat Name: ABBY DEVLIN Department: Room: [place] [address] Gender: M Bookie: : 1940 Requested By: GAMALIEL SIFUENTES Order Number: [id number] Reading MD: Bill Pearson Measurements Intervals [place] Rate: 146 P: 0 CA: 80 QRS: 83 QRSD: 128 T: 71 QT: 276 QTc: 430 Interpretive Statements Baseline artifacts noted. Rhythm probably sinus tachycardia. Nonspecific intraventricular conduction delay No previous ECG available for comparison Electronically Signed On 06-06-2021 11:42:03 EST by Bill Pearson
[2021-06-06 11:49] LABS: Anisocytosis 1+; Band Neutrophils # (Manual) 11.2 K/mm3; Basophils % (Manual) 0 % (0.0-1.8); Eosinophils % (Manual) 0 % (0.0-4.3); Hypochromasia 1+; Macrocytosis Few; Platelet Clumps Rare; Platelet Estimate Consistent w Auto; Total Cells Counted 100
[2021-06-06] MEDS: levETIRAcetam 500 MG in DEXTROSE 5% IN WATER 100 ML IV SCH (14:59)
--- NOTE | 2021-06-06 15:17 | Consultation ---
History of Present Illness - Reason for Consult Consult date: 06/06/21 - History of Present Illness 80-year-old male past medical history brain mass status post surgery presented to hospital with altered mental status. Of note he does have some residual effects from the brain surgery. His status changes acute. Febrile to 100.9 with a white count 25.4. Normal renal function. Blood cultur es pending. Currently on ceftriaxone, azithromycin, dexamethasone. On Venturi mask. Imaging personally reviewed: Chest x-ray extensive patchy bilateral airspace disease Review of systems: Deferred to reduce to the risk of transmission of COVID-19 Past History Past Medical History: other (BRAIN TUMOR WITH SHUNT) Past Surgical History: Other (brain mass resection) Social history: no significant social history Family history: hypertension Medications and Allergies Allergies Allergy/AdvReac Type Severity Reaction Status Date / Time No Known Allergies Allergy Verified 09/12/19 17:00 Home Medications Medication Instructions Recorded Confirmed Last Taken Type cephALEXin [Keflex] 500 mg PO BID #14 capsule 07/23/14 Unknown Rx Acetaminophen [Non-Aspirin Extra 500 mg PO Q6HR PRN #30 tablet 02/24/19 Unknown Rx Strength] Metoclopramide [Reglan] 10 mg PO QID PRN #30 tablet 02/24/19 Unknown Rx Active Meds: Active Medications Acetaminophen (Acetaminophen 325 Mg Tab) 650 mg PO Q4H PRN PRN Reason: Pain MILD(1-3)/Fever >100.5/LOPEZ Albuterol (Albuterol 2.5 Mg/3 Ml Nebu) 2.5 mg IH Q3HRT PRN PRN Reason: Shortness Of Breath Albuterol/Ipratropium (Ipratropium/Albuterol Sulfate 3 Ml Ampul.Neb) 1 ampul IH Q6HRT [facility] Last Admin: 06/06/21 09:00 Dose: 1 ampul Atorvastatin Calcium (Atorvastatin 40 Mg Tab) 40 mg PO QHS [facility] Dexamethasone (Dexamethasone 4 Mg/Ml Vial) 6 mg IV DAILY [facility] Last Admin: 06/06/21 09:55 Dose: 6 mg Famotidine (Famotidine 20 Mg/2 Ml Inj) 20 mg IV BID [facility] Last Admin: 06/06/21 09:55 Dose: 20 mg Hydralazine HCl (Hydralazine 20 Mg/1 Ml Inj) 10 mg IV Q6H PRN PRN Reason: SBP >/=170; DBP >/=100 Hydromorphone HCl (Hydromorphone 1 Mg/1 Ml Inj) 0.5 mg IV Q3H PRN PRN Reason: Pain , Severe (7-10) NORepinephrine/NS 8 MG-250 ML (Norepinephrine/Ns 8 Mg-250 Ml (Double Conc)) 8 mg in 250 mls @ 3.75 mls/hr IV TITRATE JACKY; Protocol Last Titration: 06/06/21 06:00 Dose: 0 mcg/min, 0 mls/hr Dextrose/Sodium Chloride (D5ns) 1,000 mls @ 100 mls/hr IV DIRECT JACKY Ceftriaxone Sodium (Rocephin/Ns 2 Gm/100 Ml) 2 gm in 100 mls @ 200 mls/hr IV Q24H JACKY; Protocol Azithromycin (Zithromax/Ns) 500 mg in 250 mls @ 250 mls/hr IV Q24H JACKY; Protocol Levetiracetam 500 mg/ Dextrose 105 mls @ 400 mls/hr IV Q12H JACKY Last Admin: 06/06/21 14:59 Dose: 400 mls/hr Labetalol HCl (Labetalol 20 Mg/4 Ml Inj) 10 mg IV Q5MIN PRN PRN Reason: to maintain SBP < 180 Morphine Sulfate (Morphine 2 Mg/1 Ml Inj) 2 mg IV Q4H PRN PRN Reason: Pain, Moderate (4-6) Ondansetron HCl (Ondansetron 4 Mg/2 Ml Inj) 4 mg IV Q8H PRN PRN Reason: Nausea And Vomiting Sodium Chloride (Sodium Chloride 0.9% 10 Ml Flush Syringe) 10 ml IV BID JACKY Last Admin: 06/06/21 09:53 Dose: 10 ml Sodium Chloride (Sodium Chloride 0.9% 10 Ml Flush Syringe) 10 ml IV PRN PRN PRN Reason: LINE FLUSH Physical Examination - Physical Exam Narrative exam: Physical exam deferred to reduce risk of transmission of COVID-19. Please refer to primary team's note. - Constitutional Vitals: Vital Signs Temp Pulse Resp BP Pulse Ox 97.9 F 104 H 21 131/61 100 06/06/21 06:00 06/06/21 15:00 06/06/21 15:00 06/06/21 15:00 06/06/21 15:00 Temperature -Last 24 Hours Temperature 97.9 F Temperature 100.9 F Results - Labs CBC & Chem 7: 06/06/21 09:06 06/06/21 09:06 Labs: Abnormal lab results 06/05/21 06/05/21 06/05/21 Range/Units 20:35 20:35 20:35 WBC 13.6 H (4.5-11.0) K/mm3 Hgb 10.7 L (11.8-15.2) gm/dl Hct (35.5-45.6) % MCH 26 L (28-32) pg MCHC 30 L (32-34) % RDW 16.9 H (13.2-15.2) % Seg Neuts % (Manual) 76.0 H (40.0-70.0) % Lymphocytes % (Manual) 1.0 L (13.4-35.0) % Seg Neutrophils # Man 10.3 H (1.8-7.7) K/mm3 Lymphocytes # (Manual) 0.1 L (1.2-5.4) K/mm3 PT 16.9 H (12.2-14.9) Sec. INR 1.24 H (0.87-1.13) Thrombin Time 19.7 H (15.1-19.6) Sec. D-Dimer (0-234) ng/mlDDU ABG pH (7.350-7.450) pH Units ABG pO2 (80.0-90.0) mm Hg ABG HCO3 (20.0-26.0) mmol/L Sodium (137-145) mmol/L Potassium 5.4 H (3.6-5.0) mmol/L Chloride (98-107) mmol/L BUN 30 H (9-20) mg/dL Glucose (75-100) mg/dL Lactic Acid (0.7-2.0) mmol/L AST 54 H (5-40) units/L C-Reactive Protein (0.00-1.30) mg/dL Albumin 2.4 L (3.9-5) g/dL Ur Specific [place] (1.003-1.030) 06/05/21 06/05/21 06/05/21 Range/Units 20:35 21:42 21:42 WBC (4.5-11.0) K/mm3 Hgb (11.8-15.2) gm/dl Hct (35.5-45.6) % MCH (28-32) pg MCHC (32-34) % RDW (13.2-15.2) % Seg Neuts % (Manual) (40.0-70.0) % Lymphocytes % (Manual) (13.4-35.0) % Seg Neutrophils # Man (1.8-7.7) K/mm3 Lymphocytes # (Manual) (1.2-5.4) K/mm3 PT (12.2-14.9) Sec. INR (0.87-1.13) Thrombin Time (15.1-19.6) Sec. D-Dimer 2087.18 H (0-234) ng/mlDDU ABG pH (7.350-7.450) pH Units ABG pO2 (80.0-90.0) mm Hg ABG HCO3 (20.0-26.0) mmol/L Sodium (137-145) mmol/L Potassium (3.6-5.0) mmol/L Chloride (98-107) mmol/L BUN (9-20) mg/dL Glucose (75-100) mg/dL Lactic Acid 3.10 H* (0.7-2.0) mmol/L AST (5-40) units/L C-Reactive Protein 6.00 H (0.00-1.30) mg/dL Albumin (3.9-5) g/dL Ur Specific [place] (1.003-1.030) 06/06/21 06/06/21 06/06/21 Range/Units 01:50 05:41 09:06 WBC 25.4 H (4.5-11.0) K/mm3 Hgb 10.0 L (11.8-15.2) gm/dl Hct 33.5 L (35.5-45.6) % MCH 25 L (28-32) pg MCHC 30 L (32-34) % RDW 16.6 H (13.2-15.2) % Seg Neuts % (Manual) (40.0-70.0) % Lymphocytes % (Manual) 2.0 L (13.4-35.0) % Seg Neutrophils # Man 11.9 H (1.8-7.7) K/mm3 Lymphocytes # (Manual) 0.5 L (1.2-5.4) K/mm3 PT (12.2-14.9) Sec. INR (0.87-1.13) Thrombin Time (15.1-19.6) Sec. D-Dimer (0-234) ng/mlDDU ABG pH 7.300 L (7.350-7.450) pH Units ABG pO2 170.4 H (80.0-90.0) mm Hg ABG HCO3 27.3 H (20.0-26.0) mmol/L Sodium (137-145) mmol/L Potassium (3.6-5.0) mmol/L Chloride (98-107) mmol/L BUN (9-20) mg/dL Glucose (75-100) mg/dL Lactic Acid (0.7-2.0) mmol/L AST (5-40) units/L C-Reactive Protein (0.00-1.30) mg/dL Albumin (3.9-5) g/dL Ur Specific [place] 1.039 H (1.003-1.030) 06/06/21 Range/Units 09:06 WBC (4.5-11.0) K/mm3 Hgb (11.8-15.2) gm/dl Hct (35.5-45.6) % MCH (28-32) pg MCHC (32-34) % RDW (13.2-15.2) % Seg Neuts % (Manual) (40.0-70.0) % Lymphocytes % (Manual) (13.4-35.0) % Seg Neutrophils # Man (1.8-7.7) K/mm3 Lymphocytes # (Manual) (1.2-5.4) K/mm3 PT (12.2-14.9) Sec. INR (0.87-1.13) Thrombin Time (15.1-19.6) Sec. D-Dimer (0-234) ng/mlDDU ABG pH (7.350-7.450) pH Units ABG pO2 (80.0-90.0) mm Hg ABG HCO3 (20.0-26.0) mmol/L Sodium 149 H D (137-145) mmol/L Potassium (3.6-5.0) mmol/L Chloride 110.0 H (98-107) mmol/L BUN 24 H (9-20) mg/dL Glucose 120 H (75-100) mg/dL Lactic Acid (0.7-2.0) mmol/L AST 55 H (5-40) units/L C-Reactive Protein (0.00-1.30) mg/dL Albumin 2.8 L (3.9-5) g/dL Ur Specific [place] (1.003-1.030) Assessment and Plan Cultures: Blood culture no growth so far A/P:80-year-old male past medical history brain mass status post surgery #Covid PUI: With bilateral pneumonia. Pending PCR. #Acute hypoxemic respiratory failure: Likely secondary to COVID-19 infection versus other pneumonia. Currently on Venturi mask #Acute encephalopathy: Likely secondary to pneumonia #Acute sepsis: With fevers and leukocytosis. Secondary to above. Recommendations: -Dexamethasone 6 mg IV/PO daily for 10 days -If Covid positive will start Remdesivir -Obtain q48-72h inflammatory markers - ferritin, Ddimer, CRP, LDH -Continue ceftriaxone 2 gm IV qday and azithromycin 500 mg PO qday, if procalcitonin <0.25 ng/mL stop antibiotics. -Follow-up blood cultures -Anticoagulation per hospital protocol -Proning as able Thank you for the consult, we will continue to follow. MD Cinda [facility] O: [phone] F: [phone]
[2021-06-06] MEDS: cefTRIAXone/NS 2 GM/100 ML 2 GM/100 ML BAG IV SCH (23:48)
[2021-06-07] MEDS ORDERED: VANCOMYCIN PHARMACY TO DOSE IV SCH (01:00)
[2021-06-07] MEDS ORDERED: VANCOMYCIN 1,250 MG in SODIUM CHLORIDE 0.9% 250ML 250 ML IV ONE (01:00)
[2021-06-07] MEDS: levETIRAcetam 500 MG in DEXTROSE 5% IN WATER 100 ML IV SCH ×2 (03:20→14:40)
[2021-06-07] MEDS: D5W/0.9% NACL 1,000 ML IV SCH ×2 (03:29→14:42)
[2021-06-07 06:24] LABS: Mean Corpuscular HGB Conc 29 % (32-34); Mean Corpuscular Volume 84 fl (84-94); Platelet Count 364 K/mm3 (140-440); Red Blood Count 3.69 M/mm3 (3.65-5.03); Red Cell Distribution Width 16.6 % (13.2-15.2)
[2021-06-07 06:37] LABS: Blood Urea Nitrogen 21 mg/dL (9-20); Hemolysis Index 1
[2021-06-07 06:43] LABS: Hematocrit 30.9 % (35.5-45.6)
[2021-06-07 06:44] LABS: BUN/Creatinine Ratio 35
[2021-06-07 07:26] LABS: Total Cells Counted 100
[2021-06-07] MEDS: IPRATROPIUM/ALBUTEROL SULFATE 3 ML AMPUL.NEB IH SCH ×3 (07:26→20:30)
[2021-06-07 07:27] LABS: Anisocytosis 1+; Basophils % (Manual) 0 % (0.0-1.8); Eosinophils % (Manual) 0 % (0.0-4.3); Hypochromasia 2+; Macrocytosis 1+; Ovalocytes Few; Platelet Estimate Consistent w Auto
[2021-06-07] MEDS ORDERED: SODIUM CHLORIDE 0.9% 50 ML IVPB IV PRN (08:16)
--- NOTE | 2021-06-07 08:35 | Progress Note ---
Assessment and Plan 80-year-old male with history of a brain mass with last surgery done in February of last year at [facility] was brought to the emergency room because of sudden alteration in mental status. per daughter Since the time of that surgery the patient has been having some instability with ambulation, some mild slurred speech, dysphagia with a PEG tube. Patient son says that the patient went for a nap late this afternoon and when he checked on him he was not responding. Patient eyes were open but essentially was unresponsive which is what prompted him to call for EMS. Patient was then tested positive for COVID-19, being treated for sepsis, deh ydration and acute metabolic encephalopathy Assessment and Plan --Acute encephalopathy (improving) most likely secondary to pneumonia sepsis and suspected seizure versus stroke CT head shows no focal mass, hemorrhage no hydrocephalus, or acute large territorial infarct. Neurology recommends full stroke work-up, Unable to complete MRI as patient has ENTRY DRIVER OPERATOR shunt in place and also not cooperative with the exam. EEG pending, continue supportive care monitor with frequent neuro exam, --Septic Shock POA Septic shock 2/2 to pneumonia, on supplemental O2 NC: . On admission patient had mild leukocytosis of 13,000, lactic acidosis, elevated inflammatory markers of D-dimer, CRP, and mild elevation in his AST. -Status post pressor support - Chest x-ray shows extensive bilateral patchy opacities concerning for pneumonia, positive for COVID-19 - cotninue ceftraixone, azithromycin for CAP coverage - decadron 6 mg IV x 10 d - ID consultation - CCM consultation - D5 W at the rate of 75cc/h. We also put the patient on Levophed drip. -- 2019 novel coronavirus infection - Family says that he is not vaccinated against COVID-19 - Oxygen via nasal cannula 3 to per minute. - DuoNeb by nebulizer every 4 hours. -Initiated on remdesivir - Rocephin 2 g IV daily. Zithromax 500 mg IV daily for 5 days for possible underlying CAP. - Dexamethasone 6 mg IV daily. - Follow Covid inflammatory marker - Infectious disease following --Chronic Dysphagia - dysphagia, slurred speech since brain surgery Feb 2021 - has PEG - NPO - recommend oral care given patient dry oropharynx. --Suspected Stroke - Patient is seen and evaluated by telemetry neurology for stroke versus seizure. -Continue aspirin 81 mg and Lipitor 40 mg p.o. daily. -Ordered for MRI of the brain and MRA of the brain and neck with and without contrast (ENTRY DRIVER OPERATOR shunt is MRI safe per daughter). - Echocardiogram with preserved EF - consulted neurology - PT OT following -- Lactic acidosis, likely due to underlying sepsis - D5 normal saline at the rate of 100 cc/h. Rocephin 2 g IV daily. Zithromax 500 mg IV daily. Recheck lactic acid in 4 hours. But blood cultures sputum culture. Infectious disease evaluation --Hyperkalemia, resolved, monitor BMP --Acute hypoxic respiratory failure Likely due to underlying Covid pneumonia Oxygen via nasal cannula 3 L/min. DuoNeb by nebulizer every 4 hours. 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 -- DVT prophylaxis SCD for DVT prophylaxis because of brain surgery. Pepcid 20 mg IV every 12 hours. Pepcid patient is a full code Hospital Course: 06/06: Currently on levophed. Oropharynx very dry. Spoke with con Quesada ([phone]) who is a nurse practitioner as well. 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 Last February he was at [place] for another surgery. After the surgery the patient had lost the swallow reflex and has had persistent dysphagia since then. He has had a PEG tube in that time.. Patient has had persistent hypernatremia and weight loss requiring tube feeds. He has had multiple repeat admissions for pneumonia and urinary tract infection. He was last hospitalized at [facility] for urinary tract infection. Per the daughter he also has a history of repeated falls. The daughter states that he does not have dementia. 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 Afterwards he is usual only alert and oriented x4 however his speech is sluggish due to issues with his swallow reflex. The daughter also stated that he has had repeat MRI scans since his ENTRY DRIVER OPERATOR shunt placement back in 2007 and that it is MRI safe. She also states that the patient has persistently low blood pressure. His primary care doctor had initiated midodrine 5 mg p.o. 3 times daily. The patient's baseline systolic blood pressure per the daughter is a usually in the 90s systolic. I discussed the patient's entire case with the daughter and she expressed gr atitude for the update from our discussion. She states that if the care staff would need any questions please contact her number that is documented in the chart and my note currently. Currently treating the patient for septic shock due to presumed CAP Vs COVID pneumonia. Patient is unvaccinated for covid currently. Per the daughter no one has been sick at home. Continue empiric antibiotic therapy. Wean pressors as tolerated. Systolic blood pressure of 90 acceptable. Will initiate home mi dodrine 5 mg p.o. 3 times daily. High suspicion for delirium rather than stroke. Doubt that this is stroke but if MRI is desired it appears that it should be okay to complete even if patient has ENTRY DRIVER OPERATOR shunt based on my discussion with the daughter. 05/07: Tolerating TF, Na level still elevated, cont iv fluid, remains restrained and appears very confused today. Na level elevated, will change iv fluid to D5w, follow BMP. started on Remdesivir iv for 5 days. cont dexamethasone, follow blood cx. Subjective Date of service: 06/07/21 Interval history: patient seen and examined Not oriented to place or situation. Patient has slurred speech, restrained na level elevated, getting TF discussed with RN at the bedside Objective - Exam Narrative Exam: GENERAL: The patient is a disheveled elderly AAM HEAD: No signs of head trauma. EYES: Pupils are equal. Extraocular motions intact. EARS: Hearing grossly intact. MOUTH: Oropharynx is normal. NECK: No adenopathy, no JVD. CHEST: coarse breath sounds bilaterally. CARDIAC: s1 and S2 +ve VASCULAR: No Edema. ABDOMEN: Soft, non tender and non distended. al. MUSCULOSKELETAL: Good range of motion of all major joints. NEUROLOGIC EXAM: Alert and oriented x 2. no focal sensory or strength deficits. follows commands PSYCHIATRIC: Confused, not oriented to place or time SKIN: No rash - Constitutional Vitals: Vital Signs - 12hr 06/07/21 06/07/21 00:15 02:29 Temperature 97.7 F Pulse Rate 122 H Respiratory 20 Rate Blood Pressure 121/74 [Right] O2 Sat by Pulse 94 95 Oximetry - Labs CBC & Chem 7: 06/09/21 05:41 06/09/21 05:41 Labs: Abnormal lab results 06/06/21 06/06/21 06/06/21 Range/Units 09:00 09:06 09:06 WBC 25.4 H (4.5-11.0) K/mm3 Hgb 10.0 L (11.8-15.2) gm/dl Hct 33.5 L (35.5-45.6) % MCH 25 L (28-32) pg MCHC 30 L (32-34) % RDW 16.6 H (13.2-15.2) % Seg Neuts % (Manual) (40.0-70.0) % Lymphocytes % (Manual) 2.0 L (13.4-35.0) % Seg Neutrophils # Man 11.9 H (1.8-7.7) K/mm3 Lymphocytes # (Manual) 0.5 L (1.2-5.4) K/mm3 Monocytes # (Manual) (0.0-0.8) K/mm3 Sodium 149 H D (137-145) mmol/L Chloride 110.0 H (98-107) mmol/L BUN 24 H (9-20) mg/dL Creatinine (0.8-1.3) mg/dL Glucose 120 H (75-100) mg/dL AST 55 H (5-40) units/L Albumin 2.8 L (3.9-5) g/dL Coronavirus (PCR) Positive A (Negative) 06/07/21 06/07/21 Range/Units 05:35 05:35 WBC 30.4 H (4.5-11.0) K/mm3 Hgb 9.0 L (11.8-15.2) gm/dl Hct 30.9 L (35.5-45.6) % MCH 25 L (28-32) pg MCHC 29 L (32-34) % RDW 16.6 H (13.2-15.2) % Seg Neuts % (Manual) 85.0 H (40.0-70.0) % Lymphocytes % (Manual) 2.0 L (13.4-35.0) % Seg Neutrophils # Man 25.8 H (1.8-7.7) K/mm3 Lymphocytes # (Manual) 0.6 L (1.2-5.4) K/mm3 Monocytes # (Manual) 0.9 H (0.0-0.8) K/mm3 Sodium 150 H (137-145) mmol/L Chloride 114.1 H (98-107) mmol/L BUN 21 H (9-20) mg/dL Creatinine 0.6 L (0.8-1.3) mg/dL Glucose 118 H (75-100) mg/dL AST (5-40) units/L Albumin (3.9-5) g/dL Coronavirus (PCR) (Negative) HEART Score - HEART Score Troponin: Troponin T 0.012 ng/mL (0.00-0.029) 06/05/21 20:35
[2021-06-07] MEDS ORDERED: REMDESIVIR 200 MG in SODIUM CHLORIDE 0.9% 250ML 250 ML IV ONE (10:00)
--- NOTE | 2021-06-07 10:23 | Progress Note ---
Assessment and Plan Cultures: Blood culture no growth so far A/P:80-year-old male past medical history brain mass status post surgery #Covid Pneumonia: Continue steroids #Bilateral pneumonia: with highly elevated procalcitonin, concerned about added bacterial infection #Acute hypoxemic respiratory failure: Likely secondary to COVID-19 infection versus other pneumonia. Currently on Venturi mask #Acute encephalopathy: Likely secondary to pneumonia. Does have a INSPECTOR RECEIVING shunt in the setting of recent brain mass removal. Encephalopathy improving, however if ongoing concerns would need tap of shunt to ensure no infection. #Acute sepsis: With fevers and leukocytosis. Secondary to above. Recommendations: -Dexamethasone 6 mg IV/PO daily for 10 days -Started remdesivir day 1 of 5. -Given concern for added bacterial infection will not be candidate for Actemra if respiratory status gets to that point. -Obtain q48-72h inflammatory markers - ferritin, Ddimer, CRP, LDH -Continue ceftriaxone 2 gm IV qday and azithromycin 500 mg PO qday for 5 and 3 days respectively. -Follow-up blood cultures -Anticoagulation per hospital protocol -Proning as able Thank you for the consult, we will continue to follow. Victoria Calle MD [facility] ([facility] O: [phone] F: [phone] Subjective Date of service: 06/07/21 Interval history: Afebrile now, though white count worsening. Objective - Exam Narrative Exam: Physical exam deferred to reduce risk of transmission of COVID-19. Please refer to primary team's note. - Constitutional Vitals: Vital Signs Temp Pulse Resp BP Pulse Ox 97.7 F 122 H 20 121/74 95 06/07/21 00:15 06/07/21 00:15 06/07/21 00:15 06/07/21 00:15 06/07/21 02:29 Temperature -Last 24 Hours Temperature 97.7 F - Labs CBC & Chem 7: 06/07/21 05:35 06/07/21 05:35 Labs: Abnormal lab results 06/06/21 06/06/21 06/06/21 Range/Units 09:00 09:06 09:06 WBC 25.4 H (4.5-11.0) K/mm3 Hgb 10.0 L (11.8-15.2) gm/dl Hct 33.5 L (35.5-45.6) % MCH 25 L (28-32) pg MCHC 30 L (32-34) % RDW 16.6 H (13.2-15.2) % Seg Neuts % (Manual) (40.0-70.0) % Lymphocytes % (Manual) 2.0 L (13.4-35.0) % Seg Neutrophils # Man 11.9 H (1.8-7.7) K/mm3 Lymphocytes # (Manual) 0.5 L (1.2-5.4) K/mm3 Monocytes # (Manual) (0.0-0.8) K/mm3 Sodium 149 H D (137-145) mmol/L Chloride 110.0 H (98-107) mmol/L BUN 24 H (9-20) mg/dL Creatinine (0.8-1.3) mg/dL Glucose 120 H (75-100) mg/dL AST 55 H (5-40) units/L Albumin 2.8 L (3.9-5) g/dL Coronavirus (PCR) Positive A (Negative) 06/07/21 06/07/21 Range/Units 05:35 05:35 WBC 30.4 H (4.5-11.0) K/mm3 Hgb 9.0 L (11.8-15.2) gm/dl Hct 30.9 L (35.5-45.6) % MCH 25 L (28-32) pg MCHC 29 L (32-34) % RDW 16.6 H (13.2-15.2) % Seg Neuts % (Manual) 85.0 H (40.0-70.0) % Lymphocytes % (Manual) 2.0 L (13.4-35.0) % Seg Neutrophils # Man 25.8 H (1.8-7.7) K/mm3 Lymphocytes # (Manual) 0.6 L (1.2-5.4) K/mm3 Monocytes # (Manual) 0.9 H (0.0-0.8) K/mm3 Sodium 150 H (137-145) mmol/L Chloride 114.1 H (98-107) mmol/L BUN 21 H (9-20) mg/dL Creatinine 0.6 L (0.8-1.3) mg/dL Glucose 118 H (75-100) mg/dL AST (5-40) units/L Albumin (3.9-5) g/dL Coronavirus (PCR) (Negative)
[2021-06-07] MEDS: dexAMETHasone 4 MG/ML VIAL IV SCH (11:13)
[2021-06-07] MEDS: FAMOTIDINE 20 MG/2 ML INJ IV SCH ×2 (11:13→23:47)
[2021-06-07] MEDS: SODIUM CHLORIDE 0.9% 50 ML IVPB IV SCH (11:14)
[2021-06-07] MEDS: ASPIRIN 325 MG TAB PO SCH (11:14)
--- NOTE | 2021-06-07 12:02 | Progress Note ---
Assessment and Plan Assessment and Plan 80-year-old male with history of a brain mass with subsequent surgery done in February of last year at [place] was brought to the emergency room because of sudden alteration in mental status. Since the time of that surgery the patient has been having some instability with ambulation, some mild slurred speech, and gets food and medication through a PEG tube. However at baseline, prior to this afternoon, the patient is normally awake, alert, oriented, AAO x3 and able to assist with some of his ADLs. Patient son says that the patient went for a nap late this afternoon and when he checked on him he was not responding. Patient eyes were open but essentially was unresponsive which is what prompted him to call for EMS. - Patient Problems # Acute encephalopathy - resolved he is currently alert interactive to some extent -he is slightly agitated restrained -Ct brain is noted with area old remote craniotomy and pseudo meningiocele/shunt placment -CVA work up ? MRI is pending -EEG is pending - Encephalopathy most likely secondary to pneumonia sepsis possible suspected seizure versus stroke. -Seizure precaution -Suggest start keppra at 500 mg per tube BID -- -EEG -MRI brain with gd when possible -Treat underlying infection # Hypotension -D5 normal saline at the rate of 100 cc/h. - We also put the patient on Levophed drip. # Lactic acidosis and sepsis -D5 normal saline at the rate of 100 cc/h. - Rocephin 2 g IV daily. - Zithromax 500 mg IV daily. - Recheck lactic acid in 4 hours. - But blood cultures sputum culture. - Infectious disease evaluation # Hypoxia -Oxygen via nasal cannula 3 L/min. - DuoNeb by nebulizer every 4 hours. -Albuterol via nebulizer every 4 hours as needed # Suspected 2019 novel coronavirus infection -COVID-19 Positive followed by ID. - Rocephin 2 g IV daily. Zithromax 500 mg IV daily. - Dexamethasone 6 mg IV daily. -D.D#2086 -Add ASA 81 mg -suggest sq heparine last brain surgery in February /CT showed no hemorrhage - Infectious disease evaluation # DVT prophylaxis -SCD for DVT prophylaxis because of brain surgery. - Pepcid 20 mg IV every 12 hours. -Pepcid patient is a full code will follow as needed -MRI brain -EEG are pending Subjective Date of service: 06/07/21 Principal diagnosis: change in mental status , COVID-19 Interval history: today he is alert oriented no complaint move all extremities no agitation started on Keppra EEG and MRI not done -Echo is pending started on ASA 81 mg Objective - Vital Sign Vital Signs - 12hr 06/07/21 06/07/21 00:15 02:29 Temperature 97.7 F Pulse Rate 122 H Respiratory 20 Rate Blood Pressure 121/74 [Right] O2 Sat by Pulse 94 95 Oximetry - General Apperance Constitutional: comfortable - EENT EENT: PERRL, mucous membranes moist - Respiratory Respiratory: lungs clear, rhonchi - Cardiovascular Cardiovascular: regular rate, normal S1, normal S2 Extremities: no peripheral edema bilat, no clubbing, cyanosis - Gastrointestinal Gastrointestinal: normoactive bowel sounds - Integumentary Integumentary: normal - Neurologic Cranial nerve examination: PERRL, EOMI, intact Speech examination: intact Detailed motor examination: grossly full strength in - Laboratory Findings CBC and BMP: 06/07/21 05:35 06/07/21 05:35 Abnormal Lab Findings: Abnormal Labs 06/05/21 06/05/21 06/05/21 20:35 20:35 20:35 WBC 13.6 H Hgb 10.7 L Hct MCH 26 L MCHC 30 L RDW 16.9 H Seg Neuts % (Manual) 76.0 H Lymphocytes % (Manual) 1.0 L Seg Neutrophils # Man 10.3 H Lymphocytes # (Manual) 0.1 L Monocytes # (Manual) PT 16.9 H INR 1.24 H Thrombin Time 19.7 H D-Dimer ABG pH ABG pO2 ABG HCO3 Sodium Potassium 5.4 H Chloride BUN 30 H Creatinine Glucose Lactic Acid AST 54 H C-Reactive Protein Albumin 2.4 L Ur Specific [place] Coronavirus (PCR) 06/05/21 06/05/21 06/05/21 20:35 21:42 21:42 WBC Hgb Hct MCH MCHC RDW Seg Neuts % (Manual) Lymphocytes % (Manual) Seg Neutrophils # Man Lymphocytes # (Manual) Monocytes # (Manual) PT INR Thrombin Time D-Dimer 2087.18 H ABG pH ABG pO2 ABG HCO3 Sodium Potassium Chloride BUN Creatinine Glucose Lactic Acid 3.10 H* AST C-Reactive Protein 6.00 H Albumin Ur Specific [place] Coronavirus (PCR) 06/06/21 06/06/21 06/06/21 01:50 05:41 09:00 WBC Hgb Hct MCH MCHC RDW Seg Neuts % (Manual) Lymphocytes % (Manual) Seg Neutrophils # Man Lymphocytes # (Manual) Monocytes # (Manual) PT INR Thrombin Time D-Dimer ABG pH 7.300 L ABG pO2 170.4 H ABG HCO3 27.3 H Sodium Potassium Chloride BUN Creatinine Glucose Lactic Acid AST C-Reactive Protein Albumin Ur Specific [place] 1.039 H Coronavirus (PCR) Positive A 06/06/21 06/06/21 06/07/21 09:06 09:06 05:35 WBC 25.4 H 30.4 H Hgb 10.0 L 9.0 L Hct 33.5 L 30.9 L MCH 25 L 25 L MCHC 30 L 29 L RDW 16.6 H 16.6 H Seg Neuts % (Manual) 85.0 H Lymphocytes % (Manual) 2.0 L 2.0 L Seg Neutrophils # Man 11.9 H 25.8 H Lymphocytes # (Manual) 0.5 L 0.6 L Monocytes # (Manual) 0.9 H PT INR Thrombin Time D-Dimer ABG pH ABG pO2 ABG HCO3 Sodium 149 H D Potassium Chloride 110.0 H BUN 24 H Creatinine Glucose 120 H Lactic Acid AST 55 H C-Reactive Protein Albumin 2.8 L Ur Specific [place] Coronavirus (PCR) 06/07/21 05:35 WBC Hgb Hct MCH MCHC RDW Seg Neuts % (Manual) Lymphocytes % (Manual) Seg Neutrophils # Man Lymphocytes # (Manual) Monocytes # (Manual) PT INR Thrombin Time D-Dimer ABG pH ABG pO2 ABG HCO3 Sodium 150 H Potassium Chloride 114.1 H BUN 21 H Creatinine 0.6 L Glucose 118 H Lactic Acid AST C-Reactive Protein Albumin Ur Specific [place] Coronavirus (PCR)
[2021-06-07] MEDS ORDERED: SODIUM BICARBONATE 325 MG TAB FEEDTUBE PRN (16:00)
[2021-06-07] MEDS ORDERED: LIPASE 10,500/PROTEASE 25,000/AMYLASE 43,750 (UNITS) DR CAP FEEDTUBE PRN (16:00)
[2021-06-07] MEDS ORDERED: SIMPLE SYRUP 15 ML FEEDTUBE PRN ×2 (16:00)
[2021-06-07] MEDS: cefTRIAXone/NS 2 GM/100 ML 2 GM/100 ML BAG IV SCH (23:46)
[2021-06-07] MEDS: AZITHROMYCIN/NS 500 MG/250 ML 500 MG/250 ML BAG IV SCH ×2 (23:46→23:47)
[2021-06-08] MEDS ORDERED: VANCOMYCIN/NS 1 GM/250 ML 1 GM/250 ML BAG IV SCH (01:00)
[2021-06-08] MEDS: VANCOMYCIN 1,250 MG in SODIUM CHLORIDE 0.9% 250ML 250 ML IV SCH (01:23)
[2021-06-08] MEDS: levETIRAcetam 500 MG in DEXTROSE 5% IN WATER 100 ML IV SCH ×2 (04:18→19:38)
[2021-06-08 07:33] LABS: Alanine Aminotransferase 36 units/L (7-56); Albumin 2.6 g/dL (3.9-5); Blood Urea Nitrogen 22 mg/dL (9-20); Calcium 9.3 mg/dL (8.4-10.2); Hemolysis Index 0
[2021-06-08 07:49] LABS: BUN/Creatinine Ratio 37
[2021-06-08] MEDS: IPRATROPIUM/ALBUTEROL SULFATE 3 ML AMPUL.NEB IH SCH ×4 (09:25→19:34)
[2021-06-08] MEDS ORDERED: D5W/0.9% NACL 1,000 ML IV SCH (10:00)
--- NOTE | 2021-06-08 10:20 | Progress Note ---
Assessment and Plan Cultures: Blood culture S aureus A/P:80-year-old male past medical history brain mass status post surgery #Covid Pneumonia: Continue steroids #Bilateral pneumonia: with highly elevated procalcitonin, concerned about added bacterial infection #Staph aureus bacteremia: unclear source. Pending SAUD #Acute hypoxemic respiratory failure: Likely secondary to COVID-19 infection versus other pneumonia. Currently on Venturi mask #Acute encephalopathy: Likely secondary to pneumonia. Does have a WAITER/WAITRESS SECOND CLASS shunt in the setting of recent brain mass removal. Encephalopathy improving, however if ongoing concerns would need tap of shunt to ensure no infection. #Acute sepsis: With fevers and leukocytosis. Secondary to above. Recommendations: -Dexamethasone 6 mg IV/PO daily for 10 days -Started remdesivir day 2 of 5. -Given concern for added bacterial infection will not be candidate for Actemra if respiratory status gets to that point. -Obtain q48-72h inflammatory markers - ferritin, Ddimer, CRP, LDH -Continue ceftriaxone 2 gm IV qday and azithromycin 500 mg PO qday for 5 and 3 days respectively. -Added vancomycin for now. Will streamline antibiotics when SAUD available. -Ordered repeat blood cultures for AM labs -Recent TTE without vegetation -Anticoagulation per hospital protocol -Proning as able Thank you for the consult, we will continue to follow. Victoria Calle MD [facility] ([facility] O: [phone] F: [phone] Subjective Date of service: 06/08/21 Principal diagnosis: change in mental status , COVID-19 Interval history: Afebrile, currently on 3L NC. Blood cultures with Staph aureus pending SAUD. Objective - Exam Narrative Exam: Physical exam deferred to reduce risk of transmission of COVID-19. Please refer to primary team's note. - Constitutional Vitals: Vital Signs Temp Pulse Resp BP Pulse Ox 97.9 F 68 18 138/91 93 06/08/21 05:21 06/08/21 09:30 06/08/21 09:30 06/08/21 05:21 06/08/21 09:30 Temperature -Last 24 Hours Temperature 97.9 F Temperature 97.9 F Temperature 97.6 F - Labs CBC & Chem 7: 06/07/21 05:35 06/08/21 06:44 Labs: Abnormal lab results 06/07/21 06/07/21 06/08/21 Range/Units 18:51 22:03 06:44 Sodium 151 H (137-145) mmol/L Chloride 116.4 H (98-107) mmol/L BUN 22 H (9-20) mg/dL Creatinine 0.6 L (0.8-1.3) mg/dL Glucose 101 H (75-100) mg/dL POC Glucose 115 H 115 H (70-105) mg/dL AST 47 H (5-40) units/L Albumin 2.6 L (3.9-5) g/dL
[2021-06-08] MEDS: FAMOTIDINE 20 MG/2 ML INJ IV SCH ×2 (11:33→22:20)
[2021-06-08] MEDS: dexAMETHasone 4 MG/ML VIAL IV SCH (11:33)
[2021-06-08] MEDS: ASPIRIN 325 MG TAB PO SCH (11:34)
--- NOTE | 2021-06-08 11:54 | Progress Note ---
Assessment and Plan Assessment and Plan 80-year-old male with history of a brain mass with subsequent surgery done in February of last year at [place] was brought to the emergency room because of sudden alteration in mental status. Since the time of that surgery the patient has been having some instability with ambulation, some mild slurred speech, and gets food and medication through a PEG tube. However at baseline, prior to this afternoon, the patient is normally awake, alert, oriented, AAO x3 and able to assist with some of his ADLs. Patient son says that the patient went for a nap late this afternoon and when he checked on him he was not responding. Patient eyes were open but essentially was unresponsive which is what prompted him to call for EMS. - Patient Problems # Acute encephalopathy - resolved he is currently alert interactive to some extent -Ct brain is noted with area old remote craniotomy and pseudo meningiocele/shunt placment -CVA work up ? MRI is pending -EEG is pending - Encephalopathy most likely secondary to pneumonia sepsis possible suspected seizure versus stroke. -Seizure precaution -Will cut down keppra to 250 mg per tube BID -- -EEG pending -MRI brain with gd when possible -Treat underlying infection # Hypotension -D5 normal saline at the rate of 100 cc/h. - We also put the patient on Levophed drip. # Lactic acidosis and sepsis -D5 normal saline at the rate of 100 cc/h. - Rocephin 2 g IV daily. - Zithromax 500 mg IV daily. - Recheck lactic acid in 4 hours. - But blood cultures sputum culture. - Infectious disease evaluation # Hypoxia -Oxygen via nasal cannula 3 L/min. - DuoNeb by nebulizer every 4 hours. -Albuterol via nebulizer every 4 hours as needed # Suspected 2019 novel coronavirus infection -COVID-19 Positive followed by ID. - Rocephin 2 g IV daily. Zithromax 500 mg IV daily. - Dexamethasone 6 mg IV daily. -D.D#2086 -Add ASA 81 mg -suggest sq heparine last brain surgery in February /CT showed no hemorrhage - Infectious disease evaluation # DVT prophylaxis -SCD for DVT prophylaxis because of brain surgery. - Pepcid 20 mg IV every 12 hours. -Pepcid patient is a full code will follow as needed -MRI brain -EEG -Cut down Keppra to 250 mg BID Subjective Date of service: 06/08/21 Principal diagnosis: change in mental status , COVID-19 Interval history: today he is slightly drawsy move all extremities no agitation EEG and MRI not done -Echo is pending started on ASA 81 mg Objective - Vital Sign Vital Signs - 12hr 06/08/21 06/08/21 05:21 09:30 Temperature 97.9 F Pulse Rate [ 68 Bilateral Throughout] Respiratory 22 Rate Respiratory 18 Rate [Bilateral Throughout] Blood Pressure 138/91 O2 Sat by Pulse 93 Oximetry - General Apperance Constitutional: comfortable - EENT EENT: PERRL, mucous membranes moist - Respiratory Respiratory: chest non-tender, lungs clear, rhonchi - Cardiovascular Cardiovascular: regular rate, normal S1, normal S2 Extremities: no peripheral edema bilat, no clubbing, cyanosis - Gastrointestinal Gastrointestinal: normoactive bowel sounds - Integumentary Integumentary: normal - Neurologic Cranial nerve examination: PERRL, EOMI, intact Speech examination: intact Detailed motor examination: grossly full strength in - Laboratory Findings CBC and BMP: 06/07/21 05:35 06/08/21 06:44 Abnormal Lab Findings: Abnormal Labs 06/05/21 06/05/21 06/05/21 20:35 20:35 20:35 WBC 13.6 H Hgb 10.7 L Hct MCH 26 L MCHC 30 L RDW 16.9 H Seg Neuts % (Manual) 76.0 H Lymphocytes % (Manual) 1.0 L Seg Neutrophils # Man 10.3 H Lymphocytes # (Manual) 0.1 L Monocytes # (Manual) PT 16.9 H INR 1.24 H Thrombin Time 19.7 H D-Dimer ABG pH ABG pO2 ABG HCO3 Sodium Potassium 5.4 H Chloride BUN 30 H Creatinine Glucose POC Glucose Lactic Acid AST 54 H C-Reactive Protein Albumin 2.4 L Ur Specific [place] Coronavirus (PCR) 06/05/21 06/05/21 06/05/21 20:35 21:42 21:42 WBC Hgb Hct MCH MCHC RDW Seg Neuts % (Manual) Lymphocytes % (Manual) Seg Neutrophils # Man Lymphocytes # (Manual) Monocytes # (Manual) PT INR Thrombin Time D-Dimer 2087.18 H ABG pH ABG pO2 ABG HCO3 Sodium Potassium Chloride BUN Creatinine Glucose POC Glucose Lactic Acid 3.10 H* AST C-Reactive Protein 6.00 H Albumin Ur Specific [place] Coronavirus (PCR) 06/06/21 06/06/21 06/06/21 01:50 05:41 09:00 WBC Hgb Hct MCH MCHC RDW Seg Neuts % (Manual) Lymphocytes % (Manual) Seg Neutrophils # Man Lymphocytes # (Manual) Monocytes # (Manual) PT INR Thrombin Time D-Dimer ABG pH 7.300 L ABG pO2 170.4 H ABG HCO3 27.3 H Sodium Potassium Chloride BUN Creatinine Glucose POC Glucose Lactic Acid AST C-Reactive Protein Albumin Ur Specific [place] 1.039 H Coronavirus (PCR) Positive A 06/06/21 06/06/21 06/07/21 09:06 09:06 05:35 WBC 25.4 H 30.4 H Hgb 10.0 L 9.0 L Hct 33.5 L 30.9 L MCH 25 L 25 L MCHC 30 L 29 L RDW 16.6 H 16.6 H Seg Neuts % (Manual) 85.0 H Lymphocytes % (Manual) 2.0 L 2.0 L Seg Neutrophils # Man 11.9 H 25.8 H Lymphocytes # (Manual) 0.5 L 0.6 L Monocytes # (Manual) 0.9 H PT INR Thrombin Time D-Dimer ABG pH ABG pO2 ABG HCO3 Sodium 149 H D Potassium Chloride 110.0 H BUN 24 H Creatinine Glucose 120 H POC Glucose Lactic Acid AST 55 H C-Reactive Protein Albumin 2.8 L Ur Specific [place] Coronavirus (PCR) 06/07/21 06/07/21 06/07/21 05:35 18:51 22:03 WBC Hgb Hct MCH MCHC RDW Seg Neuts % (Manual) Lymphocytes % (Manual) Seg Neutrophils # Man Lymphocytes # (Manual) Monocytes # (Manual) PT INR Thrombin Time D-Dimer ABG pH ABG pO2 ABG HCO3 Sodium 150 H Potassium Chloride 114.1 H BUN 21 H Creatinine 0.6 L Glucose 118 H POC Glucose 115 H 115 H Lactic Acid AST C-Reactive Protein Albumin Ur Specific [place] Coronavirus (PCR) 06/08/21 06:44 WBC Hgb Hct MCH MCHC RDW Seg Neuts % (Manual) Lymphocytes % (Manual) Seg Neutrophils # Man Lymphocytes # (Manual) Monocytes # (Manual) PT INR Thrombin Time D-Dimer ABG pH ABG pO2 ABG HCO3 Sodium 151 H Potassium Chloride 116.4 H BUN 22 H Creatinine 0.6 L Glucose 101 H POC Glucose Lactic Acid AST 47 H C-Reactive Protein Albumin 2.6 L Ur Specific [place] Coronavirus (PCR)
[2021-06-08] MEDS: REMDESIVIR 100 MG in SODIUM CHLORIDE 0.9% 250ML 250 ML IV SCH (14:15)
[2021-06-08] MEDS: SODIUM CHLORIDE 0.9% 50 ML IVPB IV SCH (14:19)
--- NOTE | 2021-06-08 15:31 | Progress Note ---
Assessment and Plan 80-year-old male with history of a brain mass with last surgery done in February of last year at [facility] was brought to the emergency room because of sudden alteration in mental status. per daughter Since the time of that surgery the patient has been having some instability with ambulation, some mild slurred speech, dysphagia with a PEG tube. Patient son says that the patient went for a nap late this afternoon and when he checked on him he was not responding. Patient eyes were open but essentially was unresponsive which is what prompted him to call for EMS. Patient was then tested positive for COVID-19, being treated for sepsis, deh ydration and acute metabolic encephalopathy Assessment and Plan --Acute encephalopathy (improving) most likely secondary to pneumonia sepsis and suspected seizure versus stroke CT head shows no focal mass, hemorrhage no hydrocephalus, or acute large territorial infarct. Neurology recommends full stroke work-up, Unable to complete MRI as patient has PRODUCT SUPPORT ENGINEER shunt in place and also not cooperative with the exam. EEG pending, continue supportive care monitor with frequent neuro exam, --Septic Shock POA Septic shock 2/2 to pneumonia, and bacteremia, on supplemental O2 NC: . On admission patient had mild leukocytosis of 13,000, lactic acidosis, elevated inflammatory markers of D-dimer, CRP, and mild elevation in his AST. -Status post pressor support - Chest x-ray shows extensive bilateral patchy opacities concerning for pneumonia, positive for COVID-19 - cotninue ceftraixone for CAP coverage, vancomycin for staph bacteremia - completed zithromax - decadron 6 mg IV x 10 d - ID consultation - CCM consultation - D5 W at the rate of 75cc/h. We also put the patient on Levophed drip. --Staph aureus bacteremia, cont vancomycin, reordered blood Cx -- 2019 novel coronavirus infection - Family says that he is not vaccinated against COVID-19 - Oxygen via nasal cannula 3 to per minute. - DuoNeb by nebulizer every 4 hours. -Initiated on remdesivir - Rocephin 2 g IV daily for 5 days for possible underlying CAP. - Dexamethasone 6 mg IV daily. - Follow Covid inflammatory marker - Infectious disease following --Chronic Dysphagia - dysphagia, slurred speech since brain surgery Feb 2021 - pulled out PEG - consulted GI for replacing the tube ( temporarily placed a Greenberg to preserve the site) - NPO - recommend oral care given patient dry oropharynx. --Suspected Stroke - Patient is seen and evaluated by telemetry neurology for stroke versus seizure. -Continue aspirin 81 mg and Lipitor 40 mg p.o. daily. -Ordered for MRI of the brain and MRA of the brain and neck with and without contrast (PRODUCT SUPPORT ENGINEER shunt is MRI safe per daughter). - Echocardiogram with preserved EF - consulted neurology - PT OT following -- Lactic acidosis, likely due to underlying sepsis -cont iv fluid. Rocephin 2 g IV daily. vancomycin IV daily. Recheck blood cx --Hyperkalemia, resolved, monitor BMP --Hypernatremia, cont hypotonic fluid --Acute hypoxic respiratory failure Likely due to underlying Covid pneumonia Oxygen via nasal cannula 3 L/min. DuoNeb by nebulizer every 4 hours. Albuterol via nebulizer every 4 hours as needed --Moderate protein calorie malnutrition - Vital AF tube feed supplementation --History of brain surgery for benign tumor - Last procedure Feb 2021 - had procedure in 2007 for tumor with vp training shunt placement due to hydrocephalus - request records from [place] and [facility] - please refer to hospital course 06/06 encounter. -- DVT prophylaxis SCD for DVT prophylaxis because of brain surgery. Pepcid 20 mg IV every 12 hours. Pepcid patient is a full code Hospital Course: 06/06: Currently on levophed. Oropharynx very dry. Spoke with con Quesada ([phone]) who is a nurse practitioner as well. 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 Last February he was at [facility] for another surgery. After the surgery the patient had lost the swallow reflex and has had persistent dysphagia since then. He has had a PEG tube in that time.. Patient has had persistent hypernatremia and weight loss requiring tube feeds. He has had multiple repeat admissions for pneumonia and urinary tract infection. He was last hospitalized at [facility] for urinary tract infection. Per the daughter he also has a history of repeated falls. The daughter states that he does not have dementia. 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 Afterwards he is usual only alert and oriented x4 however his speech is sluggish due to issues with his swallow reflex. The daughter also stated that he has had repeat MRI scans since his PRODUCT SUPPORT ENGINEER shunt placement back in 2007 and that it is MRI safe. She also states that the patient has persistently low blood pressure. His primary care doctor had initiated midodrine 5 mg p.o. 3 times daily. The patient's baseline systolic blood pressure per the daughter is a usually in the 90s systolic. I discussed the patient's entire case with the daughter and she expressed gratitude for the update from our discussion. She states that if the care staff would need any questions please contact her number that is documented in the chart and my note currently. Currently treating the patient for septic shock due to presumed CAP Vs COVID pneumonia. Patient is unvaccinated for covid currently. Per the daughter no one has been sick at home. Continue empiric antibiotic therapy. Wean pressors as tolerated. Systolic blood pressure of 90 acceptable. Will initiate home midodrine 5 mg p.o. 3 times daily. High suspicion for delirium rather than stroke. Doubt that this is stroke but if MRI is desired it appears that it should be okay to complete even if patient has PRODUCT SUPPORT ENGINEER shunt based on my discussion with the daughter. 05/07: Tolerating TF, Na level still elevated, cont iv fluid, remains restrained and appears very confused today. Na level elevated, will change iv fluid to D5w, follow BMP. started on Remdesivir iv for 5 days. cont dexamethasone, follow b lood cx. 05/08: cont hypotonic fluid, pulled out PEG - consulted GI. called daughter for update. Blood cx +ve for staph aureus - started on vancomycin, ID following, ordered repeat blood Cx. Subjective Date of service: 06/08/21 Principal diagnosis: change in mental status , COVID-19 Interval history: patient seen and examined patient remains confused na level elevated, patient pulled out his PEG tube discussed with RN at the bedside Discussed with daughter in length about patient's treatment plan and care Objective - Exam Narrative Exam: GENERAL: The patient is a disheveled elderly AAM HEAD: No signs of head trauma. EYES: Pupils are equal. Extraocular motions intact. EARS: Hearing grossly intact. MOUTH: Oropharynx is normal. NECK: No adenopathy, no JVD. CHEST: coarse breath sounds bilaterally. CARDIAC: s1 and S2 +ve VASCULAR: No Edema. ABDOMEN: Soft, non tender and non distended. greenberg catheter placed at the PEg site to preserve the site MUSCULOSKELETAL: Good range of motion of all major joints. NEUROLOGIC EXAM: Alert and oriented x 2. no focal sensory or strength deficits. follows commands PSYCHIATRIC: Confused, not oriented to place or time SKIN: No rash - Constitutional Vitals: Vital Signs - 12hr 06/08/21 06/08/21 06/08/21 05:21 09:30 14:49 Temperature 97.9 F Pulse Rate [ 68 108 H Bilateral Throughout] Respiratory 22 Rate Respiratory 18 20 Rate [Bilateral Throughout] Blood Pressure 138/91 O2 Sat by Pulse 93 Oximetry - Labs CBC & Chem 7: 06/09/21 05:41 06/09/21 05:41 Labs: Abnormal lab results 06/07/21 06/07/21 06/08/21 Range/Units 18:51 22:03 06:44 Sodium 151 H (137-145) mmol/L Chloride 116.4 H (98-107) mmol/L BUN 22 H (9-20) mg/dL Creatinine 0.6 L (0.8-1.3) mg/dL Glucose 101 H (75-100) mg/dL POC Glucose 115 H 115 H (70-105) mg/dL AST 47 H (5-40) units/L Albumin 2.6 L (3.9-5) g/dL HEART Score - HEART Score Troponin: Troponin T 0.012 ng/mL (0.00-0.029) 06/05/21 20:35
[2021-06-08] MEDS ORDERED: levETIRAcetam 250 MG in DEXTROSE 5% IN WATER 100 ML IV SCH (18:00)
[2021-06-08] MEDS: cefTRIAXone/NS 2 GM/100 ML 2 GM/100 ML BAG IV SCH (22:18)
[2021-06-08] MEDS: AZITHROMYCIN/NS 500 MG/250 ML 500 MG/250 ML BAG IV SCH (22:19)
[2021-06-09] MEDS: IPRATROPIUM/ALBUTEROL SULFATE 3 ML AMPUL.NEB IH SCH ×4 (01:01→20:46)
[2021-06-09] MEDS: VANCOMYCIN 1,250 MG in SODIUM CHLORIDE 0.9% 250ML 250 ML IV SCH (01:01)
[2021-06-09] MEDS: levETIRAcetam 500 MG in DEXTROSE 5% IN WATER 100 ML IV SCH ×3 (05:20→18:54)
[2021-06-09] MEDS ORDERED: D10W 250 ML IV SOLN IV ONE (06:24)
[2021-06-09 06:43] LABS: Mean Corpuscular HGB Conc 30 % (32-34); Mean Corpuscular Volume 83 fl (84-94); Platelet Count 319 K/mm3 (140-440); Red Blood Count 3.66 M/mm3 (3.65-5.03); Red Cell Distribution Width 16.9 % (13.2-15.2)
[2021-06-09 06:52] LABS: Hematocrit 30.4 % (35.5-45.6); Hemoglobin 9.1 gm/dl (11.8-15.2)
[2021-06-09 06:58] LABS: Alanine Aminotransferase 34 units/L (7-56); Albumin 2.8 g/dL (3.9-5); Blood Urea Nitrogen 17 mg/dL (9-20); Calcium 9.1 mg/dL (8.4-10.2); Hemolysis Index 1
[2021-06-09 06:59] LABS: BUN/Creatinine Ratio 28
--- NOTE | 2021-06-09 07:46 | Gastroenterology Consultation ---
History of Present Illness - Reason for Consult Consult date: 06/09/21 G tube Requesting physician: HAILEY REILLY - History of Present Illness Patient unable to provide history so history obtained from chart 80-year-old male with history of a brain mass with subsequent surgery done in February of last year at [place] was brought to the emergency room because of duggan dden alteration in mental status. Since the time of that surgery the patient has been having some instability with ambulation, some mild slurred speech, and gets food and medication through a PEG tube. G-tube was accidentally pulled so GI consulted Obtained/updated/reviewed patient's current medications Past History Past Medical History: other (BRAIN TUMOR WITH SHUNT) Past Surgical History: Other (brain mass resection) Social history: no significant social history Family history: hypertension Medications and Allergies Allergies Allergy/AdvReac Type Severity Reaction Status Date / Time No Known Allergies Allergy Verified 06/07/21 12:22 Home Medications Medication Instructions Recorded Confirmed Last Taken Type Melatonin [Melatonin 5MG TAB] 2.5 mg PO HS 06/07/21 06/07/21 Unknown History Midodrine [Proamatine] 5 mg PO TID 06/07/21 06/07/21 Unknown History oxyCODONE /ACETAMINOPHEN [Percocet 1 tab PO Q4HR 06/07/21 06/07/21 Unknown History 5/325] Active Meds: Active Medications Acetaminophen (Acetaminophen 325 Mg Tab) 650 mg PO Q4H PRN PRN Reason: Pain MILD(1-3)/Fever >100.5/LOPEZ Albuterol (Albuterol 2.5 Mg/3 Ml Nebu) 2.5 mg IH Q3HRT PRN PRN Reason: Shortness Of Breath Albuterol/Ipratropium (Ipratropium/Albuterol Sulfate 3 Ml Ampul.Neb) 1 ampul IH Q6HRT [facility] Last Admin: 06/09/21 01:01 Dose: 1 ampul Lipase/Protease/Amylase (Lipase 10,500/Protease 25,000/Amylase 43,750 (Units) Dr Caraballo) 1 each FEEDTUBE PRN PRN PRN Reason: For Clogged Feeding Tube Aspirin (Aspirin 325 Mg Tab) 325 mg PO QDAY [facility] Last Admin: 06/08/21 11:34 Dose: Not Given Atorvastatin Calcium (Atorvastatin 40 Mg Tab) 40 mg PO QHS [facility] Last Admin: 06/08/21 22:20 Dose: Not Given Dexamethasone (Dexamethasone 4 Mg/Ml Vial) 6 mg IV DAILY [facility] Stop: 06/14/21 10:01 Last Admin: 06/08/21 11:33 Dose: 6 mg Famotidine (Famotidine 20 Mg/2 Ml Inj) 20 mg IV BID [facility] Last Admin: 06/08/21 22:20 Dose: 20 mg Hydralazine HCl (Hydralazine 20 Mg/1 Ml Inj) 10 mg IV Q6H PRN PRN Reason: SBP >/=170; DBP >/=100 Hydromorphone HCl (Hydromorphone 1 Mg/1 Ml Inj) 0.5 mg IV Q3H PRN PRN Reason: Pain , Severe (7-10) Ceftriaxone Sodium (Rocephin/Ns 2 Gm/100 Ml) 2 gm in 100 mls @ 200 mls/hr IV Q24H [facility]; Protocol Stop: 06/09/21 22:29 Last Admin: 06/08/21 22:18 Dose: 200 mls/hr Vancomycin HCl 1,250 mg/ (Sodium Chloride) 275 mls @ 166.667 mls/hr IV Q24H [facility] Last Admin: 06/09/21 01:01 Dose: 166.667 mls/hr Remdesivir 100 mg/ Sodium (Chloride) 250 mls @ 500 mls/hr IV Q24HR@1400 [facility] Stop: 06/11/21 14:29 Last Admin: 06/08/21 14:15 Dose: 500 mls/hr Dextrose (D5w) 1,000 mls @ 75 mls/hr IV DIRECT [facility] Levetiracetam 500 mg/ Dextrose 105 mls @ 400 mls/hr IV Q12H [facility] Last Admin: 06/09/21 06:50 Dose: 400 mls/hr Labetalol HCl (Labetalol 20 Mg/4 Ml Inj) 10 mg IV Q5MIN PRN PRN Reason: to maintain SBP < 180 Morphine Sulfate (Morphine 2 Mg/1 Ml Inj) 2 mg IV Q4H PRN PRN Reason: Pain, Moderate (4-6) Ondansetron HCl (Ondansetron 4 Mg/2 Ml Inj) 4 mg IV Q8H PRN PRN Reason: Nausea And Vomiting Simple Syrup (Simple Syrup 15 Ml) 15 ml FEEDTUBE PRN PRN PRN Reason: Hypoglycemia Simple Syrup (Simple Syrup 15 Ml) 30 ml FEEDTUBE PRN PRN PRN Reason: Hypoglycemia Sodium Bicarbonate (Sodium Bicarbonate 325 Mg Tab) 325 mg FEEDTUBE PRN PRN PRN Reason: For Clogged Feeding Tube Sodium Chloride (Sodium Chloride 0.9% 10 Ml Flush Syringe) 10 ml IV BID [facility] Last Admin: 06/08/21 22:19 Dose: 10 ml Sodium Chloride (Sodium Chloride 0.9% 50 Ml Ivpb) 50 ml IV Q24HR@1400 [facility] Stop: 06/11/21 14:01 Last Admin: 06/08/21 14:19 Dose: 50 ml Sodium Chloride (Sodium Chloride 0.9% 50 Ml Ivpb) 10 ml IV PRN PRN PRN Reason: FLUSH Review of Systems - Review of Systems ROS unobtainable: due to mental status Exam - Constitutional Vital Signs: Temp Pulse Resp BP Pulse Ox 98.3 F 101 H 22 130/80 97 06/09/21 04:38 06/09/21 04:38 06/09/21 04:38 06/09/21 04:38 06/09/21 04:38 General appearance: cachectic, other - Respiratory Respiratory effort: labored Respiratory: bilateral: rhonchi - Gastrointestinal General gastrointestinal: Present: soft - Neurologic Neurological: disoriented - Labs CBC & Chem 7: 06/09/21 05:41 06/09/21 05:41 Lab Results: Laboratory Results - last 24 hr 06/08/21 06/08/21 06/08/21 06:44 15:31 15:31 WBC RBC Hgb Hct MCV MCH MCHC RDW Plt Count Seg Neutrophils % Sodium Potassium Chloride Carbon Dioxide Anion Gap BUN Creatinine 0.6 L Estimated GFR > 60 BUN/Creatinine Ratio 37 Glucose POC Glucose Calcium Phosphorus Total Bilirubin AST ALT Alkaline Phosphatase Total Protein Albumin Albumin/Globulin Ratio TSH 0.307 Free T4 1.05 06/08/21 06/08/21 06/09/21 16:54 23:05 04:34 WBC RBC Hgb Hct MCV MCH MCHC RDW Plt Count Seg Neutrophils % Sodium Potassium Chloride Carbon Dioxide Anion Gap BUN Creatinine Estimated GFR BUN/Creatinine Ratio Glucose POC Glucose 132 H 100 71 Calcium Phosphorus Total Bilirubin AST ALT Alkaline Phosphatase Total Protein Albumin Albumin/Globulin Ratio TSH Free T4 06/09/21 06/09/21 05:41 05:41 WBC 20.6 H RBC 3.66 Hgb 9.1 L Hct 30.4 L MCV 83 L MCH 25 L MCHC 30 L RDW 16.9 H Plt Count 319 Seg Neutrophils % Health Information Specialist Sodium 154 H Potassium 3.5 L Chloride 117.1 H Carbon Dioxide 29 Anion Gap 11 BUN 17 Creatinine 0.6 L Estimated GFR > 60 BUN/Creatinine Ratio 28 Glucose 65 L POC Glucose Calcium 9.1 Phosphorus 2.90 Total Bilirubin 0.20 AST 39 ALT 34 Alkaline Phosphatase 77 Total Protein 6.7 Albumin 2.8 L Albumin/Globulin Ratio 0.7 TSH Free T4 Assessment and Plan Patient with G-tube fell out 16 Norwegian Garcia catheter was put in place to keep the tract open G-tube replaced with 18 Norwegian replacement G-tube no complications May use immediately GI will sign off - Patient Problems (1) Malfunction of gastrostomy tube Current Visit: Yes Status: Acute (2) Acute encephalopathy Current Visit: Yes Status: Acute
[2021-06-09 07:50] LABS: Band Neutrophils # (Manual) 0.2 K/mm3; Basophils % (Manual) 0 % (0.0-1.8); Eosinophils % (Manual) 0 % (0.0-4.3); Total Cells Counted 100
[2021-06-09 07:51] LABS: Target Cells 1+
[2021-06-09 07:52] LABS: Hypochromasia 1+; Platelet Estimate Consistent w Auto
--- NOTE | 2021-06-09 10:10 | Consultation ---
History of Present Illness - Reason for Consult Consult date: 06/09/21 hypernatremia - History of Present Illness The patient is a 80 YO male with history of Brain mass with subsequent surgery done in February 2021 at [facility] who was brought to [facility] 06/05 with AMS. Patient is a very poor historian and there was no family member at the bedside. Since the time of that surgery the patient has been having some instability with ambulation, some slurred speech, and gets food and medication through PEG tube. Patient was found unresponsive by his son. In the ED, patient was seen and evaluated by telemetry Neurology. CT head showed no focal mass, hemorrhage no hydrocephalus, or acute large territorial infarct. Chest x-ray shows extensive bilateral patchy opacities concerning for pneumonia. Patient admitted for further evaluation. Labs notable for WBC is 20.6, Potassium 3.5 and Sodium 155. Nephrology was consulted for further evaluation of hypernatremia. Past History Past Medical History: other (BRAIN TUMOR WITH SHUNT) Past Surgical History: Other (brain mass resection) Social history: no significant social history Family history: hypertension Medications and Allergies Allergies Allergy/AdvReac Type Severity Reaction Status Date / Time No Known Allergies Allergy Verified 06/07/21 12:22 Home Medications Medication Instructions Recorded Confirmed Last Taken Type Melatonin [Melatonin 5MG TAB] 2.5 mg PO HS 06/07/21 06/07/21 Unknown History Midodrine [Proamatine] 5 mg PO TID 06/07/21 06/07/21 Unknown History oxyCODONE /ACETAMINOPHEN [Percocet 1 tab PO Q4HR 06/07/21 06/07/21 Unknown History 5/325] Active Meds: Active Medications Acetaminophen (Acetaminophen 325 Mg Tab) 650 mg PO Q4H PRN PRN Reason: Pain MILD(1-3)/Fever >100.5/LOPEZ Albuterol (Albuterol 2.5 Mg/3 Ml Nebu) 2.5 mg IH Q3HRT PRN PRN Reason: Shortness Of Breath Albuterol/Ipratropium (Ipratropium/Albuterol Sulfate 3 Ml Ampul.Neb) 1 ampul IH Q6HRT JACKY Last Admin: 06/09/21 07:56 Dose: 1 ampul Lipase/Protease/Amylase (Lipase 10,500/Protease 25,000/Amylase 43,750 (Units) Dr Caraballo) 1 each FEEDTUBE PRN PRN PRN Reason: For Clogged Feeding Tube Aspirin (Aspirin 325 Mg Tab) 325 mg PO QDAY [facility] Last Admin: 06/08/21 11:34 Dose: Not Given Atorvastatin Calcium (Atorvastatin 40 Mg Tab) 40 mg PO QHS [facility] Last Admin: 06/08/21 22:20 Dose: Not Given Dexamethasone (Dexamethasone 4 Mg/Ml Vial) 6 mg IV DAILY [facility] Stop: 06/14/21 10:01 Last Admin: 06/08/21 11:33 Dose: 6 mg Famotidine (Famotidine 20 Mg/2 Ml Inj) 20 mg IV BID [facility] Last Admin: 06/08/21 22:20 Dose: 20 mg Hydralazine HCl (Hydralazine 20 Mg/1 Ml Inj) 10 mg IV Q6H PRN PRN Reason: SBP >/=170; DBP >/=100 Hydromorphone HCl (Hydromorphone 1 Mg/1 Ml Inj) 0.5 mg IV Q3H PRN PRN Reason: Pain , Severe (7-10) Ceftriaxone Sodium (Rocephin/Ns 2 Gm/100 Ml) 2 gm in 100 mls @ 200 mls/hr IV Q24H [facility]; Protocol Stop: 06/09/21 22:29 Last Admin: 06/08/21 22:18 Dose: 200 mls/hr Vancomycin HCl 1,250 mg/ (Sodium Chloride) 275 mls @ 166.667 mls/hr IV Q24H [facility] Last Admin: 06/09/21 01:01 Dose: 166.667 mls/hr Remdesivir 100 mg/ Sodium (Chloride) 250 mls @ 500 mls/hr IV Q24HR@1400 [facility] Stop: 06/11/21 14:29 Last Admin: 06/08/21 14:15 Dose: 500 mls/hr Dextrose (D5w) 1,000 mls @ 75 mls/hr IV DIRECT [facility] Levetiracetam 500 mg/ Dextrose 105 mls @ 400 mls/hr IV Q12H [facility] Last Admin: 06/09/21 06:50 Dose: 400 mls/hr Labetalol HCl (Labetalol 20 Mg/4 Ml Inj) 10 mg IV Q5MIN PRN PRN Reason: to maintain SBP < 180 Morphine Sulfate (Morphine 2 Mg/1 Ml Inj) 2 mg IV Q4H PRN PRN Reason: Pain, Moderate (4-6) Ondansetron HCl (Ondansetron 4 Mg/2 Ml Inj) 4 mg IV Q8H PRN PRN Reason: Nausea And Vomiting Simple Syrup (Simple Syrup 15 Ml) 15 ml FEEDTUBE PRN PRN PRN Reason: Hypoglycemia Simple Syrup (Simple Syrup 15 Ml) 30 ml FEEDTUBE PRN PRN PRN Reason: Hypoglycemia Sodium Bicarbonate (Sodium Bicarbonate 325 Mg Tab) 325 mg FEEDTUBE PRN PRN PRN Reason: For Clogged Feeding Tube Sodium Chloride (Sodium Chloride 0.9% 10 Ml Flush Syringe) 10 ml IV BID [facility] Last Admin: 06/08/21 22:19 Dose: 10 ml Sodium Chloride (Sodium Chloride 0.9% 50 Ml Ivpb) 50 ml IV Q24HR@1400 [facility] Stop: 06/11/21 14:01 Last Admin: 06/08/21 14:19 Dose: 50 ml Sodium Chloride (Sodium Chloride 0.9% 50 Ml Ivpb) 10 ml IV PRN PRN PRN Reason: FLUSH Review of Systems ROS unobtainable: due to mental status Exam - Vital Signs Vital signs: Vital Signs Pulse Resp BP Pulse Ox 140 H 24 78/43 72 L 06/05/21 20:16 06/05/21 20:16 06/05/21 20:16 06/05/21 20:16 Results - Lab Results 06/09/21 05:41 06/09/21 05:41 Most recent lab results ABG pH 7.300 pH Units (7.350-7.450) L 06/06/21 01:50 ABG pCO2 56.7 mm Hg 06/06/21 01:50 ABG pO2 170.4 mm Hg (80.0-90.0) H 06/06/21 01:50 ABG HCO3 27.3 mmol/L (20.0-26.0) H 06/06/21 01:50 ABG O2 Saturation 98.9 % (95.0-99.0) 06/06/21 01:50 Calcium 9.1 mg/dL (8.4-10.2) 06/09/21 05:41 Phosphorus 2.90 mg/dL (2.5-4.5) 06/09/21 05:41 Assessment and Plan 1. Hypernatremia: ?2/2 dehydration. IV D5W ordered. Monitor Sodium level. 2. FEN: Replete K. Monitor lytes and volume status. 3. Acute hypoxic resp failure, POA: Likely secondary to COVID-19 infection versus other pneumonia. Supplemental O2. Remdesivir and Decadron. Monitor. 4. Covid-19 infection: As above. Followed by ID. Monitor. 5. Staph aureus bacteremia: unclear source. Followed by ID. 6. Acute encephalopathy: Likely secondary to pneumonia. 7. Acute sepsis: S/p septic shock. Subjective: Patient was seen and examined at the bedside. RN at the bedside. Examination: General appearance: well-developed, appears stated age, emaciated, no distress HEENT: atraumatic, JODY Neck: trachea midline Respiratory: diminished breath sounds Heart: S1S2, regular, no murmur Abdomen: obese, soft, bowel sounds heard, NT, PEG tube noted Integumentary: no obvious rash noted Neurologic: alert, confused, on restrains Ext: no edema noted
--- NOTE | 2021-06-09 10:28 | Progress Note ---
Assessment and Plan Cultures: Blood culture 06/05/2021 MSSA Blood culture 06/08/2021 no growth so far Blood culture 06/09/2021 No growth so far A/P:80-year-old male past medical history brain mass status post surgery #Covid Pneumonia: Continue steroids #Bilateral pneumonia: with highly elevated procalcitonin, concerned about added bacterial infection #Staph aureus bacteremia: unclear source. Pending SAUD #Acute hypoxemic respiratory failure: Likely secondary to COVID-19 infection versus other pneumonia. Currently on Venturi mask #Acute encephalopathy: Likely secondary to pneumonia. Does have a GALV[employer]ER Z[employer] shunt in the setting of recent brain mass removal. Encephalopathy improving, however if ongoing concerns would need tap of shunt to ensure no infection. #Acute sepsis: With fevers and leukocytosis. Secondary to above. Recommendations: -Dexamethasone 6 mg IV/PO daily for 10 days -Started remdesivir day 3 of 5. -Obtain q48-72h inflammatory markers - ferritin, Ddimer, CRP, LDH -Stopped current antibiotics -Started cefazolin 2g q8h. Plan 2 weeks as only 1 bottle. -Ok for midline when culture negative x48 hours -case management consulted for Ancef 2g q8h until 06/22/2021 -Follow up repeat blood cultures -Recent TTE without vegetation -Anticoagulation per hospital protocol -Proning as able Thank you for the consult, we will continue to follow. Victoria Calle MD [facility] O: [phone] F: [phone] Subjective Date of service: 06/09/21 Principal diagnosis: change in mental status , COVID-19 Interval history: Afebrile, white count improving but still elevated. Objective - Exam Narrative Exam: Physical exam deferred to reduce risk of transmission of COVID-19. Please refer to primary team's note. - Constitutional Vitals: Vital Signs Temp Pulse Resp BP Pulse Ox 98.3 F 98 H 20 130/80 98 06/09/21 04:38 06/09/21 07:56 06/09/21 07:56 06/09/21 04:38 06/09/21 08:00 Temperature -Last 24 Hours Temperature 98.3 F Temperature 97.9 F Temperature 97.4 F - Labs CBC & Chem 7: 06/09/21 05:41 06/09/21 05:41 Labs: Abnormal lab results 06/08/21 06/09/21 06/09/21 Range/Units 16:54 05:41 05:41 WBC 20.6 H (4.5-11.0) K/mm3 Hgb 9.1 L (11.8-15.2) gm/dl Hct 30.4 L (35.5-45.6) % MCV 83 L (84-94) fl MCH 25 L (28-32) pg MCHC 30 L (32-34) % RDW 16.9 H (13.2-15.2) % Seg Neuts % (Manual) 97.0 H (40.0-70.0) % Lymphocytes % (Manual) 0 L (13.4-35.0) % Seg Neutrophils # Man 20.0 H (1.8-7.7) K/mm3 Lymphocytes # (Manual) 0.0 L (1.2-5.4) K/mm3 Sodium 154 H (137-145) mmol/L Potassium 3.5 L (3.6-5.0) mmol/L Chloride 117.1 H (98-107) mmol/L Creatinine 0.6 L (0.8-1.3) mg/dL Glucose 65 L (75-100) mg/dL POC Glucose 132 H (70-105) mg/dL Albumin 2.8 L (3.9-5) g/dL
[2021-06-09] MEDS: dexAMETHasone 4 MG/ML VIAL IV SCH (10:33)
[2021-06-09] MEDS: ASPIRIN 325 MG TAB PO SCH (10:34)
[2021-06-09] MEDS: FAMOTIDINE 20 MG/2 ML INJ IV SCH ×2 (10:34→23:38)
[2021-06-09] MEDS: DEXTROSE 5% IN WATER 1,000 ML IV SCH (10:35)
--- NOTE | 2021-06-09 12:36 | Progress Note ---
Assessment and Plan 80-year-old male with history of a brain mass with last surgery done in February of last year at [facility] was brought to the emergency room because of sudden alteration in mental status. per daughter Since the time of that surgery the patient has been having some instability with ambulation, some mild slurred speech, dysphagia with a PEG tube. Patient son says that the patient went for a nap late this afternoon and when he checked on him he was not responding. Patient eyes were open but essentially was unresponsive which is what prompted him to call for EMS. Patient was then tested positive for COVID-19, being treated for sepsis, deh ydration and acute metabolic encephalopathy Assessment and Plan --Acute encephalopathy (improving) most likely secondary to pneumonia sepsis and suspected seizure versus stroke CT head shows no focal mass, hemorrhage no hydrocephalus, or acute large territorial infarct. Neurology recommends full stroke work-up, Unable to complete MRI as patient has SLOPE HOIST OPERATOR shunt in place and also not cooperative with the exam. EEG pending, continue supportive care monitor with frequent neuro exam, --Septic Shock POA Septic shock 2/2 to pneumonia, and bacteremia, on supplemental O2 NC: . On admission patient had mild leukocytosis of 13,000, lactic acidosis, elevated inflammatory markers of D-dimer, CRP, and mild elevation in his AST. -Status post pressor support - Chest x-ray shows extensive bilateral patchy opacities concerning for pneumonia, positive for COVID-19 - cotninue ceftraixone for CAP coverage, vancomycin for staph bacteremia - completed zithromax - decadron 6 mg IV x 10 d - ID consultation - CCM consultation - D5 W at the rate of 75cc/h. We also put the patient on Levophed drip. --Staph aureus bacteremia, cont vancomycin, reordered blood Cx -- 2019 novel coronavirus infection - Family says that he is not vaccinated against COVID-19 - Oxygen via nasal cannula 3 to per minute. - DuoNeb by nebulizer every 4 hours. -Initiated on remdesivir - Rocephin 2 g IV daily for 5 days for possible underlying CAP. - Dexamethasone 6 mg IV daily. - Follow Covid inflammatory marker - Infectious disease following --Chronic Dysphagia with PEg malfunction - dysphagia, slurred speech since brain surgery Feb 2021 - pulled out PEG - consulted GI, replaced the tube - NPO - recommend oral care given patient dry oropharynx. --Suspected Stroke - Patient is seen and evaluated by telemetry neurology for stroke versus seizure. -Continue aspirin 81 mg and Lipitor 40 mg p.o. daily. -Ordered for MRI of the brain and MRA of the brain and neck with and without contrast (SLOPE HOIST OPERATOR shunt is MRI safe per daughter). - Echocardiogram with preserved EF - consulted neurology - PT OT following -- Lactic acidosis, likely due to underlying sepsis -cont iv fluid. Rocephin 2 g IV daily. vancomycin IV daily. Recheck blood cx --Hyperkalemia, resolved, monitor BMP --Hypernatremia, cont hypotonic fluid --Acute hypoxic respiratory failure Likely due to underlying Covid pneumonia Oxygen via nasal cannula 3 L/min. DuoNeb by nebulizer every 4 hours. Albuterol via nebulizer every 4 hours as needed --Moderate protein calorie malnutrition - Vital AF tube feed supplementation --History of brain surgery for benign tumor - Last procedure Feb 2021 - had procedure in 2007 for tumor with vp customer service shunt placement due to hydrocephalus - request records from [facility] and [facility] - please refer to hospital course 06/06 encounter. -- DVT prophylaxis SCD for DVT prophylaxis because of brain surgery. Pepcid 20 mg IV every 12 hours. Pepcid patient is a full code Hospital Course: 06/06: Currently on levophed. Oropharynx very dry. Spoke with con Quesada ([phone]) who is a nurse practitioner as well. 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 Last February he was at [place] for another surgery. After the surgery the patient had lost the swallow reflex and has had persistent dysphagia since then. He has had a PEG tube in that time.. Patient has had persistent hypernatremia and weight loss requiring tube feeds. He has had multiple repeat admissions for pneumonia and urinary tract infection. He was last hospitalized at [facility] for urinary tract infection. Per the daughter he also has a history of repeated falls. The daughter states that he does not have dementia. 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 Afterwards he is usual only alert and oriented x4 however his speech is sluggish due to issues with his swallow reflex. The daughter also stated that he has had repeat MRI scans since his SLOPE HOIST OPERATOR shunt placement back in 2007 and that it is MRI safe. She also states that the patient has persistently low blood pressure. His primary care doctor had initiated midodrine 5 mg p.o. 3 times daily. The patient's baseline systolic blood pressure per the daughter is a usually in the 90s systolic. I discussed the patient's entire case with the daughter and she expressed gratitude for the update from our discussion. She states that if the care staff would need any questions please contact her number that is documented in the chart and my note currently. Currently treating the patient for septic shock due to presumed CAP Vs COVID pneumonia. Patient is unvaccinated for covid currently. Per the daughter no one has been sick at home. Continue empiric antibiotic therapy. Wean pressors as tolerated. Systolic blood pressure of 90 acceptable. Will initiate home midodrine 5 mg p.o. 3 times daily. High suspicion for delirium rather than stroke. Doubt that this is stroke but if MRI is desired it appears that it should be okay to complete even if patient has SLOPE HOIST OPERATOR shunt based on my discussion with the daughter. 05/07: Tolerating TF, Na level still elevated, cont iv fluid, remains restrained and appears very confused today. Na level elevated, will change iv fluid to D5w, follow BMP. started on Remdesivir iv for 5 days. cont dexamethasone, follow blood cx. 05/08: cont hypotonic fluid, pulled out PEG - consulted GI. called daughter for update. Blood cx +ve for staph aureus - started on vancomycin, ID following, ordered repeat blood Cx. 05/09: replaced PEG tube, initiate TF, cont hypotonic fluid, patient remains confused. cont empiric abx, follow cx, repeat BMP in the am. Discussed with daughter and updated. Remdesivir day 3 today Subjective Date of service: 06/09/21 Principal diagnosis: change in mental status , COVID-19 Interval history: patient seen and examined patient remains confused Na level elevated, PEG tube replaced discussed with RN at the bedside Objective - Exam Narrative Exam: GENERAL: The patient is a disheveled elderly AAM HEAD: No signs of head trauma. EYES: Pupils are equal. Extraocular motions intact. EARS: Hearing grossly intact. MOUTH: Oropharynx is normal. NECK: No adenopathy, no JVD. CHEST: coarse breath sounds bilaterally. CARDIAC: s1 and S2 +ve VASCULAR: No Edema. ABDOMEN: Soft, non tender and non distended. PEG in place MUSCULOSKELETAL: Good range of motion of all major joints. NEUROLOGIC EXAM: Alert and oriented x 2. no focal sensory or strength deficits. follows commands PSYCHIATRIC: Confused, not oriented to place or time SKIN: No rash - Constitutional Vitals: Vital Signs - 12hr 06/09/21 06/09/21 06/09/21 01:01 04:38 07:56 Temperature 98.3 F Pulse Rate 101 H Pulse Rate [ 107 H 98 H Bilateral Throughout] Respiratory 22 Rate Respiratory 20 20 Rate [Bilateral Throughout] Blood Pressure 130/80 O2 Sat by Pulse 97 Oximetry 06/09/21 06/09/21 08:00 10:00 Temperature Pulse Rate Pulse Rate [ Bilateral Throughout] Respiratory Rate Respiratory Rate [Bilateral Throughout] Blood Pressure O2 Sat by Pulse 98 98 Oximetry - Labs CBC & Chem 7: 06/09/21 05:41 06/09/21 05:41 Labs: Abnormal lab results 06/08/21 06/09/21 06/09/21 Range/Units 16:54 05:41 05:41 WBC 20.6 H (4.5-11.0) K/mm3 Hgb 9.1 L (11.8-15.2) gm/dl Hct 30.4 L (35.5-45.6) % MCV 83 L (84-94) fl MCH 25 L (28-32) pg MCHC 30 L (32-34) % RDW 16.9 H (13.2-15.2) % Seg Neuts % (Manual) 97.0 H (40.0-70.0) % Lymphocytes % (Manual) 0 L (13.4-35.0) % Seg Neutrophils # Man 20.0 H (1.8-7.7) K/mm3 Lymphocytes # (Manual) 0.0 L (1.2-5.4) K/mm3 Sodium 154 H (137-145) mmol/L Potassium 3.5 L (3.6-5.0) mmol/L Chloride 117.1 H (98-107) mmol/L Creatinine 0.6 L (0.8-1.3) mg/dL Glucose 65 L (75-100) mg/dL POC Glucose 132 H (70-105) mg/dL Albumin 2.8 L (3.9-5) g/dL HEART Score - HEART Score Troponin: Troponin T 0.012 ng/mL (0.00-0.029) 06/05/21 20:35
[2021-06-09] MEDS: REMDESIVIR 100 MG in SODIUM CHLORIDE 0.9% 250ML 250 ML IV SCH (15:18)
[2021-06-09] MEDS: SODIUM CHLORIDE 0.9% 50 ML IVPB IV SCH (15:20)
[2021-06-10] MEDS: DEXTROSE 5% IN WATER 1,000 ML IV SCH ×2 (00:27→22:47)
[2021-06-10] MEDS ORDERED: LORazepam 2 MG/ML VIAL IV ONE ×2 (01:15→05:00)
[2021-06-10] MEDS: IPRATROPIUM/ALBUTEROL SULFATE 3 ML AMPUL.NEB IH SCH ×4 (04:14→20:14)
[2021-06-10] MEDS: levETIRAcetam 500 MG in DEXTROSE 5% IN WATER 100 ML IV SCH (05:30)
[2021-06-10] MEDS: FAMOTIDINE 20 MG/2 ML INJ IV SCH (09:55)
[2021-06-10] MEDS: dexAMETHasone 4 MG/ML VIAL IV SCH (09:56)
[2021-06-10] MEDS: ASPIRIN 325 MG TAB PO SCH (09:56)
--- NOTE | 2021-06-10 09:58 | Progress Note ---
Assessment and Plan Cultures: Blood culture 06/05/2021 MSSA Blood culture 06/08/2021 no growth so far Blood culture 06/09/2021 No growth so far A/P:80-year-old male past medical history brain mass status post surgery #Covid Pneumonia: Continue steroids #Bilateral pneumonia: with highly elevated procalcitonin, concerned about added bacterial infection #Staph aureus bacteremia: unclear source. #Acute hypoxemic respiratory failure: Likely secondary to COVID-19 infection versus other pneumonia. Currently on 8L #Acute encephalopathy: Likely secondary to pneumonia. 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 Encephalopathy improved, not concerned for shunt infection at the present time. #Acute sepsis: With fevers and leukocytosis. Secondary to above. Recommendations: -Dexamethasone 6 mg IV/PO daily for 10 days -Started remdesivir day 4 of 5. -Not a candidate for Actemra -Obtain q48-72h inflammatory markers - ferritin, Ddimer, CRP, LDH -Continue cefazolin 2g q8h. Plan 2 weeks as only 1 bottle. -Ok for midline when culture negative x48 hours -case management consulted for Ancef 2g q8h until 06/22/2021 -Follow up repeat blood cultures -Recent TTE without vegetation -Anticoagulation per hospital protocol -Proning as able Okay for discharge from infectious disease perspective when stable from a respiratory perspective Thank you for the consult, we will sign off. Please call if questions. Victoria Calle MD [facility] O: [phone] F: [phone] Subjective Date of service: 06/10/21 Principal diagnosis: change in mental status , COVID-19 Interval history: Afebrile, no acute change. Blood cultures remain no growth so far. Objective - Exam Narrative Exam: Physical exam deferred to reduce risk of transmission of COVID-19. Please refer to primary team's note. - Constitutional Vitals: Vital Signs Temp Pulse Resp BP Pulse Ox 98.3 F 118 H 20 122/66 98 06/10/21 05:11 06/10/21 08:00 06/10/21 08:00 06/10/21 05:11 06/10/21 09:00 Temperature -Last 24 Hours Temperature 98.3 F Temperature 97.8 F Temperature 97.7 F Temperature 97.4 F - Labs CBC & Chem 7: 06/09/21 05:41 06/09/21 05:41 Labs: Abnormal lab results 06/09/21 06/10/21 Range/Units 16:36 05:22 POC Glucose 125 H 67 L (70-105) mg/dL
--- NOTE | 2021-06-10 13:38 | Progress Note ---
Assessment and Plan 1. Hypernatremia: ?2/2 dehydration. IV D5W ordered. Monitor Sodium level. 2. FEN: Replete lytes as needed Monitor lytes and volume status. 3. Acute hypoxic resp failure, POA: Likely secondary to COVID-19 infection versus other pneumonia. Supplemental O2. Remdesivir and Decadron. Monitor. 4. Covid-19 infection: As above. Followed by ID. Monitor. 5. Staph aureus bacteremia: Unclear source. Followed by ID. 6. Acute encephalopathy: Likely secondary to pneumonia. 7. Acute sepsis: S/p septic shock. Subjective: Patient was seen and examined at the bedside. Examination: General appearance: well-developed, appears stated age, emaciated, no distress HEENT: atraumatic, JODY Neck: trachea midline Respiratory: diminished breath sounds Heart: S1S2, regular, no murmur Abdomen: obese, soft, bowel sounds heard, NT, PEG tube noted Integumentary: no obvious rash noted Neurologic: lethargic Ext: no edema noted Subjective Date of service: 06/10/21 Principal diagnosis: change in mental status , COVID-19 Objective - Vital Signs Vital signs: Vital Signs - 12hr 06/10/21 06/10/21 06/10/21 05:11 08:00 09:00 Temperature 98.3 F Pulse Rate 120 H Pulse Rate [ 118 H Bilateral Throughout] Respiratory 18 Rate Respiratory 20 Rate [Bilateral Throughout] Blood Pressure 122/66 O2 Sat by Pulse 99 98 Oximetry - Lab 06/09/21 05:41 06/09/21 05:41 Most recent lab results ABG pH 7.300 pH Units (7.350-7.450) L 06/06/21 01:50 ABG pCO2 56.7 mm Hg 06/06/21 01:50 ABG pO2 170.4 mm Hg (80.0-90.0) H 06/06/21 01:50 ABG HCO3 27.3 mmol/L (20.0-26.0) H 06/06/21 01:50 ABG O2 Saturation 98.9 % (95.0-99.0) 06/06/21 01:50 Calcium 9.1 mg/dL (8.4-10.2) 06/09/21 05:41 Phosphorus 2.90 mg/dL (2.5-4.5) 06/09/21 05:41 Medications & Allergies - Medications Allergies/Adverse Reactions: Allergies No Known Allergies Allergy (Verified 06/07/21 12:22) Home Medications: Home Medications Medication Instructions Recorded Confirmed Last Taken Type Melatonin [Melatonin 5MG TAB] 2.5 mg PO HS 06/07/21 06/07/21 Unknown History Midodrine [Proamatine] 5 mg PO TID 06/07/21 06/07/21 Unknown History oxyCODONE /ACETAMINOPHEN [Percocet 1 tab PO Q4HR 06/07/21 06/07/21 Unknown History 5/325] Active Medications: Generic Name Dose Route Start Last Admin Trade Name Freq PRN Reason Stop Dose Admin Acetaminophen 650 mg 06/06/21 02:49 Acetaminophen 325 Mg Tab PO Q4H PRN Pain MILD(1-3)/Fever >100.5/LOEPZ Albuterol 2.5 mg 06/06/21 02:49 Albuterol 2.5 Mg/3 Ml Nebu IH Q3HRT PRN Shortness Of Breath Albuterol/Ipratropium 1 ampul 06/06/21 08:00 06/10/21 08:58 Ipratropium/Albuterol Sulfate 3 Ml Ampul.Neb IH 1 ampul Q6HRT JACKY Administration Lipase/Protease/Amylase 1 each 06/07/21 16:00 Lipase 10,500/Protease 25,000/Amylase 43,750 (Units) Dr Caraballo FEEDTUBE PRN PRN For Clogged Feeding Tube Aspirin 325 mg 06/07/21 10:00 06/10/21 09:56 Aspirin 325 Mg Tab PO 325 mg QDAY JACKY Administration Atorvastatin Calcium 40 mg 06/06/21 22:00 06/09/21 23:37 Atorvastatin 40 Mg Tab PO 40 mg QHS JACKY Administration Dexamethasone 6 mg 06/06/21 10:00 06/10/21 09:56 Dexamethasone 4 Mg/Ml Vial IV 06/14/21 10:01 6 mg DAILY JACKY Administration Famotidine 20 mg 06/10/21 22:00 Famotidine 20 Mg Tab FEEDTUBE BID JACKY Hydralazine HCl 10 mg 06/06/21 03:08 Hydralazine 20 Mg/1 Ml Inj IV Q6H PRN SBP >/=170; DBP >/=100 Hydromorphone HCl 0.5 mg 06/06/21 02:49 Hydromorphone 1 Mg/1 Ml Inj IV Q3H PRN Pain , Severe (7-10) Remdesivir 100 mg/ Sodium 250 mls @ 500 mls/hr 06/08/21 14:00 06/09/21 15:18 Chloride IV 06/11/21 14:29 500 mls/hr Q24HR@1400 JACKY Administration Dextrose 1,000 mls @ 75 mls/hr 06/08/21 14:00 06/10/21 00:27 D5w IV 75 mls/hr DIRECT JACKY Administration Cefazolin Sodium 2 gm/ Sodium 100 mls @ 200 mls/hr 06/09/21 16:00 06/10/21 08:54 Chloride IV 06/22/21 16:29 200 mls/hr Q8H JACKY Administration Labetalol HCl 10 mg 06/06/21 02:49 Labetalol 20 Mg/4 Ml Inj IV Q5MIN PRN to maintain SBP < 180 Levetiracetam 500 mg 06/10/21 18:00 Levetiracetam 500 Mg/5 Ml Oral Liqd FEEDTUBE Q12H JACKY Morphine Sulfate 2 mg 06/06/21 02:49 Morphine 2 Mg/1 Ml Inj IV Q4H PRN Pain, Moderate (4-6) Ondansetron HCl 4 mg 06/06/21 02:49 Ondansetron 4 Mg/2 Ml Inj IV Q8H PRN Nausea And Vomiting Simple Syrup 15 ml 06/07/21 16:00 06/10/21 05:30 Simple Syrup 15 Ml FEEDTUBE 15 ml PRN PRN Administration Hypoglycemia Simple Syrup 30 ml 06/07/21 16:00 Simple Syrup 15 Ml FEEDTUBE PRN PRN Hypoglycemia Sodium Bicarbonate 325 mg 06/07/21 16:00 Sodium Bicarbonate 325 Mg Tab FEEDTUBE PRN PRN For Clogged Feeding Tube Sodium Chloride 10 ml 06/06/21 10:00 06/09/21 23:37 Sodium Chloride 0.9% 10 Ml Flush Syringe IV 10 ml BID JACKY Administration Sodium Chloride 50 ml 06/07/21 10:00 06/09/21 15:20 Sodium Chloride 0.9% 50 Ml Ivpb IV 06/11/21 14:01 50 ml Q24HR@1400 JACKY Administration Sodium Chloride 10 ml 06/07/21 08:16 Sodium Chloride 0.9% 50 Ml Ivpb IV PRN PRN FLUSH
[2021-06-10] MEDS: SODIUM CHLORIDE 0.9% 50 ML IVPB IV SCH (14:11)
[2021-06-10] MEDS: REMDESIVIR 100 MG in SODIUM CHLORIDE 0.9% 250ML 250 ML IV SCH (18:15)
[2021-06-10] MEDS: levETIRAcetam 500 MG/5 ML ORAL LIQD FEEDTUBE SCH (18:23)
--- NOTE | 2021-06-10 20:43 | Progress Note ---
Assessment and Plan Assessment and Plan --Acute encephalopathy (improving) most likely secondary to pneumonia sepsis and suspected seizure versus stroke CT head shows no focal mass, hemorrhage no hydrocephalus, or acute large territ orial infarct. Neurology recommends full stroke work-up, Unable to complete MRI as patient has INVENTORY REPRESENTATIVE shunt in place and also not cooperative with the exam. EEG pending, continue supportive care monitor with frequent neuro exam, --Septic Shock POA Septic shock 2/2 to pneumonia, and bacteremia, on supplemental O2 NC: . On admission patient had mild leukocytosis of 13,000, lactic acidosis, elevated inflammatory markers of D-dimer, CRP, and mild elevation in his AST. -Status post pressor support - Chest x-ray shows extensive bilateral patchy opacities concerning for pneumonia, positive for COVID-19 - cotninue ceftraixone for CAP coverage, vancomycin for staph bacteremia - completed zithromax - decadron 6 mg IV x 10 d - ID consultation - CCM consultation - D5 W at the rate of 75cc/h. We also put the patient on Levophed drip. --Staph aureus bacteremia, cont vancomycin, reordered blood Cx -- 2019 novel coronavirus infection - Family says that he is not vaccinated against COVID-19 - Oxygen via nasal cannula 3 to per minute. - DuoNeb by nebulizer every 4 hours. -Initiated on remdesivir - Rocephin 2 g IV daily for 5 days for possible underlying CAP. - Dexamethasone 6 mg IV daily. - Follow Covid inflammatory marker - Infectious disease following --Chronic Dysphagia with PEg malfunction - dysphagia, slurred speech since brain surgery Feb 2021 - pulled out PEG - consulted GI, replaced the tube - TF - recommend oral care given patient dry oropharynx. --Suspected Stroke - Patient is seen and evaluated by telemetry neurology for stroke versus seizure. -Continue aspirin 81 mg and Lipitor 40 mg p.o. daily. -Ordered for MRI of the brain and MRA of the brain and neck with and without contrast (INVENTORY REPRESENTATIVE shunt is MRI safe per daughter). - Echocardiogram with preserved EF - consulted neurology - PT OT following -- Lactic acidosis, likely due to underlying sepsis -cont iv fluid. Rocephin 2 g IV daily. vancomycin IV daily. Recheck blood cx --Hyperkalemia, resolved, monitor BMP --Hypernatremia, cont hypotonic fluid --Acute hypoxic respiratory failure Likely due to underlying Covid pneumonia Oxygen via nasal cannula 3 L/min. DuoNeb by nebulizer every 4 hours. 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 -- DVT prophylaxis SCD for DVT prophylaxis because of brain surgery. Pepcid 20 mg IV every 12 hours. Pepcid patient is a full code Subjective Date of service: 06/10/21 Principal diagnosis: change in mental status , COVID-19 Interval history: 80-year-old male with history of a brain mass with last surgery done in February of last year at [facility] was brought to the emergency room because of sudden alteration in mental status. per daughter Since the time of that surgery the patient has been having some instability with ambulation, some mild slurred speech, dysphagia with a PEG tube. Patient son says that the patient went for a nap late this afternoon and when he checked on him he was not responding. Patient eyes were open but essentially was unresponsive which is what prompted him to call for EMS. Patient was then tested positive for COVID-19, being treated for sepsis, dehydration and acute metabolic encephalopathy Hospital Course: 06/06: Currently on levophed. Oropharynx very dry. Spoke with con Quesada ([phone]) who is a nurse practitioner as well. 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 Last February he was at [place] for another surgery. After the surgery the patient had lost the swallow reflex and has had persistent dysphagia since then. He has had a PEG tube in that time.. Patient has had persistent hypernatremia and weight loss requiring tube feeds. He has had multiple repeat admissions for pneumonia and urinary tract infection. He was last hospitalized at [facility] for urinary tract infection. Per the daughter he also has a history of repeated falls. The daughter states that he does not have dementia. 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 Afterwards he is usual only alert and oriented x4 however his speech is sluggish due to issues with his swallow reflex. The daughter also stated that he has had repeat MRI scans since his INVENTORY REPRESENTATIVE shunt placement back in 2007 and that it is MRI safe. She also states that the patient has persistently low blood pressure. His primary care doctor had initiated midodrine 5 mg p.o. 3 times daily. The patient's baseline systolic blood pressure per the daughter is a usually in the 90s systolic. I discussed the patient's entire case with the daughter and she expressed gratitude for the update from our discussion. She states that if the care staff would need any questions please contact her number that is documented in the chart and my note currently. Currently treating the patient for septic shock due to presumed CAP Vs COVID pneumonia. Patient is unvaccinated for covid currently. Per the daughter no one has been sick at home. Continue empiric antibiotic therapy. Wean pressors as tolerated. Systolic blood pressure of 90 acceptable. Will initiate home midodrine 5 mg p.o. 3 times daily. High suspicion for delirium rather than stroke. Doubt that this is stroke but if MRI is desired it appears that it should be okay to complete even if patient has INVENTORY REPRESENTATIVE shunt based on my discussion with the daughter. 2/1: Tolerating TF, Na level still elevated, cont iv fluid, remains restrained and appears very confused today. Na level elevated, will change iv fluid to D5w, follow BMP. started on Remdesivir iv for 5 days. cont dexamethasone, follow blood cx. 2/2: cont hypotonic fluid, pulled out PEG - consulted GI. called daughter for update. Blood cx +ve for staph aureus - started on vancomycin, ID following, ordered repeat blood Cx. 2/3: replaced PEG tube, initiate TF, cont hypotonic fluid, patient remains confused. cont empiric abx, follow cx, repeat BMP in the am. Discussed with daughter and updated. Remdesivir day 3 today 2/ Confused,Cont TF,Remdesivir Day#4 Objective - Constitutional Vitals: Vital Signs - 12hr 06/10/21 06/10/21 06/10/21 09:00 10:00 13:07 Temperature 97.9 F Pulse Rate 79 120 H Pulse Rate [ Bilateral Throughout] Respiratory 22 Rate Respiratory Rate [Bilateral Throughout] Blood Pressure 114/72 O2 Sat by Pulse 98 95 93 Oximetry 06/10/21 14:00 Temperature Pulse Rate Pulse Rate [ 115 H Bilateral Throughout] Respiratory Rate Respiratory 22 Rate [Bilateral Throughout] Blood Pressure O2 Sat by Pulse Oximetry General appearance: Present: mild distress, well-nourished - EENT Eyes: PERRL, EOM intact ENT: hearing intact, clear oral mucosa Ears: bilateral: normal - Neck Neck: supple, normal ROM - Respiratory Respiratory effort: normal Respiratory: bilateral: CTA - Breasts Breasts: normal - Cardiovascular Rhythm: regular Heart Sounds: Present: S1 & S2. Absent: gallop, rub Extremities: pulses intact, No edema, normal color, Full ROM - Gastrointestinal General gastrointestinal: Present: soft, non-tender, non-distended, normal bowel sounds - Genitourinary Male genitourinary: normal - Integumentary Integumentary: clear, warm, dry - Musculoskeletal Musculoskeletal: 1, strength equal bilaterally - Neurologic Neurologic: moves all extremities - Psychiatric Psychiatric: other (Lethargic) - Allied health notes Allied health notes reviewed: nursing, case management - Labs CBC & Chem 7: 06/09/21 05:41 06/09/21 05:41 Labs: Abnormal lab results 06/10/21 06/10/21 06/10/21 Range/Units 05:22 11:10 16:51 POC Glucose 67 L 107 H 181 H (70-105) mg/dL HEART Score - HEART Score Troponin: Troponin T 0.012 ng/mL (0.00-0.029) 06/05/21 20:35
[2021-06-10] MEDS: FAMOTIDINE 20 MG TAB FEEDTUBE SCH (22:53)
[2021-06-11] MEDS: levETIRAcetam 500 MG/5 ML ORAL LIQD FEEDTUBE SCH ×2 (05:04→18:18)
[2021-06-11] MEDS: IPRATROPIUM/ALBUTEROL SULFATE 3 ML AMPUL.NEB IH SCH ×3 (07:53→20:27)
[2021-06-11] MEDS: ASPIRIN 325 MG TAB PO SCH (11:27)
[2021-06-11] MEDS: dexAMETHasone 4 MG/ML VIAL IV SCH (11:28)
[2021-06-11] MEDS: FAMOTIDINE 20 MG TAB FEEDTUBE SCH ×2 (11:28→21:04)
--- NOTE | 2021-06-11 12:24 | Progress Note ---
Assessment and Plan Assessment and Plan --Acute encephalopathy (improving) most likely secondary to pneumonia sepsis and suspected seizure versus stroke More alert and oriented today On 4 L nasal cannula oxygen improved --Septic Shock POA Improved --Staph aureus bacteremia, cont vancomycin, reordered blood Cx -- 2019 novel coronavirus infection - Family says that he is not vaccinated against COVID-19 - Oxygen via nasal cannula 3 to per minute. - DuoNeb by nebulizer every 4 hours. -Initiated on remdesivir -Remdesivir day 5 P. - Dexamethasone 6 mg IV daily. - Follow Covid inflammatory marker - Infectious disease following --Chronic Dysphagia with PEg malfunction - dysphagia, slurred speech since brain surgery Feb 2021 - pulled out PEG - consulted GI, replaced the tube -PEG tube replaced --Suspected Stroke - Patient is seen and evaluated by telemetry neurology for stroke versus seizure. -Continue aspirin 81 mg and Lipitor 40 mg p.o. daily. -Ordered for MRI of the brain and MRA of the brain and neck with and without contrast (ACCOUNT INSTALLATION SPECIALIST shunt is MRI safe per daughter). - Echocardiogram with preserved EF - consulted neurology - PT OT following -- Lactic acidosis, likely due to underlying sepsis -cont iv fluid. Rocephin 2 g IV daily. vancomycin IV daily. Recheck blood cx --Hyperkalemia, resolved, monitor BMP --Hypernatremia, cont hypotonic fluid --Acute hypoxic respiratory failure Likely due to underlying Covid pneumonia Oxygen via nasal cannula 4. L/min. DuoNeb by nebulizer every 4 hours. Albuterol via nebulizer every 4 hours as needed --Moderate protein calorie malnutrition - Vital AF tube feed supplementation --History of brain surgery for benign tumor - Last procedure Feb 2021 - had procedure in 2007 for tumor with svp group director shunt placement due to hydrocephalus - request records from [place] and [facility] - please refer to hospital course 06/06 encounter. -- DVT prophylaxis SCD for DVT prophylaxis because of brain surgery. Pepcid 20 mg IV every 12 hours. Pepcid patient is a full code Subjective Date of service: 06/11/21 Principal diagnosis: change in mental status , COVID-19 Interval history: 80-year-old male with history of a brain mass with last surgery done in February of last year at [facility] was brought to the emergency room because of sudden alteration in mental status. per daughter Since the time of that surgery the patient has been having some instability with ambulation, some mild slurred speech, dysphagia with a PEG tube. Patient son says that the patient went for a nap late this afternoon and when he checked on him he was not responding. Patient eyes were open but essentially was unresponsive which is what prompted him to call for EMS. Patient was then tested positive for COVID-19, being treated for sepsis, dehydration and acute metabolic encephalopathy Hospital Course: 06/06: Currently on levophed. Oropharynx very dry. Spoke with con Quesada ([phone]) who is a nurse practitioner as well. 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 Last February he was at [place] for another surgery. After the surgery the patient had lost the swallow reflex and has had persistent dysphagia since then. He has had a PEG tube in that time.. Patient has had persistent hypernatremia and weight loss requiring tube feeds. He has had multiple repeat admissions for pneumonia and urinary tract infection. He was last hospitalized at [facility] for urinary tract infection. Per the daughter he also has a history of repeated falls. The daughter states that he does not have dementia. 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 Afterwards he is usual only alert and oriented x4 however his speech is sluggish due to issues with his swallow reflex. The daughter also stated that he has had repeat MRI scans since his ACCOUNT INSTALLATION SPECIALIST shunt placement back in 2007 and that it is MRI safe. She also states that the patient has persistently low blood pressure. His primary care doctor had initiated midodrine 5 mg p.o. 3 times daily. The patient's baseline systolic blood pressure per the daughter is a usually in the 90s systolic. I discussed the patient's entire case with the daughter and she expressed gratitude for the update from our discussion. She states that if the care staff would need any questions please contact her number that is documented in the chart and my note currently. Currently treating the patient for septic shock due to presumed CAP Vs COVID pneumonia. Patient is unvaccinated for covid currently. Per the daughter no one has been sick at home. Continue empiric antibiotic therapy. Wean pressors as tolerated. Systolic blood pressure of 90 acceptable. Will initiate home midodrine 5 mg p.o. 3 times daily. High suspicion for delirium rather than stroke. Doubt that this is stroke but if MRI is desired it appears that it should be okay to complete even if patient has ACCOUNT INSTALLATION SPECIALIST shunt based on my discussion with the daughter. 06/07: Tolerating TF, Na level still elevated, cont iv fluid, remains restrained and appears very confused today. Na level elevated, will change iv fluid to D5w, follow BMP. started on Remdesivir iv for 5 days. cont dexamethasone, follow blood cx. 06/08: cont hypotonic fluid, pulled out PEG - consulted GI. called daughter for update. Blood cx +ve for staph aureus - started on vancomycin, ID following, ordered repeat blood Cx. 06/09: replaced PEG tube, initiate TF, cont hypotonic fluid, patient remains confused. cont empiric abx, follow cx, repeat BMP in the am. Discussed with daughter and updated. Remdesivir day 3 today 06/10 Confused,Cont TF,Remdesivir Day#4 06/11/2021 patient less confused today--remdesivir day 5 On 4 L of nasal cannula oxygen Cachectic Needs physical therapy patient says he is in the hospital Objective - Constitutional Vitals: Vital Signs - 12hr 06/11/21 06/11/21 06/11/21 05:16 07:53 08:04 Temperature 98.2 F Pulse Rate 101 H Pulse Rate [ 111 H Bilateral Throughout] Respiratory 18 Rate Respiratory 20 Rate [Bilateral Throughout] Blood Pressure 124/78 O2 Sat by Pulse 92 95 Oximetry General appearance: Present: no acute distress, well-nourished - EENT Eyes: PERRL, EOM intact ENT: hearing intact, clear oral mucosa Ears: bilateral: normal - Neck Neck: supple, normal ROM - Respiratory Respiratory effort: normal Respiratory: bilateral: CTA - Breasts Breasts: normal - Cardiovascular Heart rate: 78 Rhythm: regular Heart Sounds: Present: S1 & S2. Absent: gallop, rub Extremities: pulses intact, No edema, normal color, Full ROM - Gastrointestinal General gastrointestinal: Present: soft, non-tender, non-distended, normal bowel sounds - Genitourinary Male genitourinary: normal - Integumentary Integumentary: clear, warm, dry - Musculoskeletal Musculoskeletal: 1, strength equal bilaterally - Neurologic Neurologic: moves all extremities - Psychiatric Psychiatric: memory intact, appropriate mood/affect, intact judgment & insight - Labs CBC & Chem 7: 06/09/21 05:41 06/09/21 05:41 Labs: Abnormal lab results 06/10/21 06/10/21 06/11/21 Range/Units 16:51 23:04 05:16 POC Glucose 181 H 142 H 120 H (70-105) mg/dL HEART Score - HEART Score Troponin: Troponin T 0.012 ng/mL (0.00-0.029) 06/05/21 20:35
--- NOTE | 2021-06-11 14:39 | Progress Note ---
Assessment and Plan 1. Hypernatremia: 2/2 dehydration. Improved. IV D5W decreased. Monitor Sodium level. 2. FEN: Replete lytes as needed Monitor lytes and volume status. 3. Acute hypoxic resp failure, POA: Likely secondary to COVID-19 infection versus other pneumonia. Supplemental O2. Remdesivir and Decadron. Monitor. 4. Covid-19 infection: As above. Followed by ID. Monitor. 5. Staph aureus bacteremia: Unclear source. Followed by ID. 6. Acute encephalopathy: Likely secondary to pneumonia. 7. Acute sepsis: S/p septic shock. Subjective: Patient was seen and examined at the bedside. Examination: General appearance: well-developed, appears stated age, emaciated, no distress HEENT: atraumatic, JODY Neck: trachea midline Respiratory: diminished breath sounds Heart: S1S2, regular, no murmur Abdomen: obese, soft, bowel sounds heard, NT, PEG tube noted Integumentary: no obvious rash noted Neurologic: lethargic, on restrains Ext: no edema noted Subjective Date of service: 06/11/21 Principal diagnosis: change in mental status , COVID-19 Objective - Vital Signs Vital signs: Vital Signs - 12hr 06/11/21 06/11/21 06/11/21 05:16 07:53 08:04 Temperature 98.2 F Pulse Rate 101 H Pulse Rate [ 111 H Bilateral Throughout] Respiratory 18 Rate Respiratory 20 Rate [Bilateral Throughout] Blood Pressure 124/78 O2 Sat by Pulse 92 95 Oximetry 06/11/21 06/11/21 06/11/21 10:00 11:54 12:55 Temperature 98.1 F Pulse Rate 84 Pulse Rate [ Bilateral Throughout] Respiratory 20 Rate Respiratory Rate [Bilateral Throughout] Blood Pressure 134/82 O2 Sat by Pulse 97 98 Oximetry - Lab 06/11/21 14:46 06/11/21 14:46 Most recent lab results ABG pH 7.300 pH Units (7.350-7.450) L 06/06/21 01:50 ABG pCO2 56.7 mm Hg 06/06/21 01:50 ABG pO2 170.4 mm Hg (80.0-90.0) H 06/06/21 01:50 ABG HCO3 27.3 mmol/L (20.0-26.0) H 06/06/21 01:50 ABG O2 Saturation 98.9 % (95.0-99.0) 06/06/21 01:50 Calcium 9.1 mg/dL (8.4-10.2) 06/09/21 05:41 Phosphorus 2.90 mg/dL (2.5-4.5) 06/09/21 05:41 Medications & Allergies - Medications Allergies/Adverse Reactions: Allergies No Known Allergies Allergy (Verified 06/07/21 12:22) Home Medications: Home Medications Medication Instructions Recorded Confirmed Last Taken Type Melatonin [Melatonin 5MG TAB] 2.5 mg PO HS 06/07/21 06/07/21 Unknown History Midodrine [Proamatine] 5 mg PO TID 06/07/21 06/07/21 Unknown History oxyCODONE /ACETAMINOPHEN [Percocet 1 tab PO Q4HR 06/07/21 06/07/21 Unknown History 5/325] Active Medications: Generic Name Dose Route Start Last Admin Trade Name Freq PRN Reason Stop Dose Admin Acetaminophen 650 mg 06/06/21 02:49 Acetaminophen 325 Mg Tab PO Q4H PRN Pain MILD(1-3)/Fever >100.5/LOPEZ Albuterol 2.5 mg 06/06/21 02:49 Albuterol 2.5 Mg/3 Ml Nebu IH Q3HRT PRN Shortness Of Breath Albuterol/Ipratropium 1 ampul 06/10/21 20:00 06/11/21 07:53 Ipratropium/Albuterol Sulfate 3 Ml Ampul.Neb IH 1 ampul TIDRT JACKY Administration Lipase/Protease/Amylase 1 each 06/07/21 16:00 Lipase 10,500/Protease 25,000/Amylase 43,750 (Units) Dr Ilya ARDONTUBE PRN PRN For Clogged Feeding Tube Aspirin 325 mg 06/07/21 10:00 06/11/21 11:27 Aspirin 325 Mg Tab PO 325 mg QDAY JACKY Administration Atorvastatin Calcium 40 mg 06/06/21 22:00 06/10/21 21:30 Atorvastatin 40 Mg Tab PO 40 mg QHS JACKY Administration Dexamethasone 6 mg 06/06/21 10:00 06/11/21 11:28 Dexamethasone 4 Mg/Ml Vial IV 06/14/21 10:01 6 mg DAILY JACKY Administration Famotidine 20 mg 06/10/21 22:00 06/11/21 11:28 Famotidine 20 Mg Tab FEEDTUBE 20 mg BID JACKY Administration Hydralazine HCl 10 mg 06/06/21 03:08 Hydralazine 20 Mg/1 Ml Inj IV Q6H PRN SBP >/=170; DBP >/=100 Hydromorphone HCl 0.5 mg 06/06/21 02:49 Hydromorphone 1 Mg/1 Ml Inj IV Q3H PRN Pain , Severe (7-10) Dextrose 1,000 mls @ 75 mls/hr 06/08/21 14:00 06/10/21 22:47 D5w IV 75 mls/hr DIRECT JACKY Administration Cefazolin Sodium 2 gm/ Sodium 100 mls @ 200 mls/hr 06/09/21 16:00 06/11/21 00:04 Chloride IV 06/22/21 16:29 200 mls/hr Q8H JACKY Administration Labetalol HCl 10 mg 06/06/21 02:49 Labetalol 20 Mg/4 Ml Inj IV Q5MIN PRN to maintain SBP < 180 Levetiracetam 500 mg 06/10/21 18:00 06/11/21 05:04 Levetiracetam 500 Mg/5 Ml Oral Liqd FEEDTUBE 500 mg Q12H JACKY Administration Morphine Sulfate 2 mg 06/06/21 02:49 Morphine 2 Mg/1 Ml Inj IV Q4H PRN Pain, Moderate (4-6) Ondansetron HCl 4 mg 06/06/21 02:49 Ondansetron 4 Mg/2 Ml Inj IV Q8H PRN Nausea And Vomiting Simple Syrup 15 ml 06/07/21 16:00 06/10/21 05:30 Simple Syrup 15 Ml FEEDTUBE 15 ml PRN PRN Administration Hypoglycemia Simple Syrup 30 ml 06/07/21 16:00 Simple Syrup 15 Ml FEEDTUBE PRN PRN Hypoglycemia Sodium Bicarbonate 325 mg 06/07/21 16:00 Sodium Bicarbonate 325 Mg Tab FEEDTUBE PRN PRN For Clogged Feeding Tube Sodium Chloride 10 ml 06/06/21 10:00 06/11/21 11:28 Sodium Chloride 0.9% 10 Ml Flush Syringe IV 10 ml BID JACKY Administration Sodium Chloride 10 ml 06/07/21 08:16 Sodium Chloride 0.9% 50 Ml Ivpb IV PRN PRN FLUSH
[2021-06-11] MEDS: REMDESIVIR 100 MG in SODIUM CHLORIDE 0.9% 250ML 250 ML IV SCH (14:48)
[2021-06-11] MEDS: SODIUM CHLORIDE 0.9% 50 ML IVPB IV SCH (14:49)
[2021-06-11 15:19] LABS: Basophils % (Auto) 0.2 % (0.0-1.8); Eosinophils # (Auto) 0.1 K/mm3 (0.0-0.4); Eosinophils % (Auto) 0.7 % (0.0-4.3); Hematocrit 30.5 % (35.5-45.6); Hemoglobin 9.4 gm/dl (11.8-15.2); Lymphocytes # (Auto) 0.7 K/mm3 (1.2-5.4); Lymphocytes % (Auto) 8.8 % (13.4-35.0); Mean Corpuscular HGB Conc 31 % (32-34); Mean Corpuscular Volume 83 fl (84-94); Monocytes # (Auto) 0.5 K/mm3 (0.0-0.8); Monocytes % (Auto) 6.5 % (0.0-7.3); Platelet Count 262 K/mm3 (140-440); Red Blood Count 3.66 M/mm3 (3.65-5.03); Red Cell Distribution Width 17.4 % (13.2-15.2)
[2021-06-11] MEDS: DEXTROSE 5% IN WATER 1,000 ML IV SCH (15:22)
[2021-06-11 15:34] LABS: Alanine Aminotransferase 15 units/L (7-56); Albumin 2.4 g/dL (3.9-5); Blood Urea Nitrogen 15 mg/dL (9-20); Calcium 8.3 mg/dL (8.4-10.2); Hemolysis Index 27
[2021-06-11 15:37] LABS: BUN/Creatinine Ratio 30
[2021-06-11] MEDS ORDERED: POTASSIUM CHLORIDE 20 MEQ PACKET PO ONE (19:36)
[2021-06-12] MEDS: levETIRAcetam 500 MG/5 ML ORAL LIQD FEEDTUBE SCH ×2 (05:18→18:48)
[2021-06-12] MEDS: DEXTROSE 5% IN WATER 1,000 ML IV SCH (05:19)
[2021-06-12] MEDS: IPRATROPIUM/ALBUTEROL SULFATE 3 ML AMPUL.NEB IH SCH ×3 (09:18→20:28)
[2021-06-12] MEDS: FAMOTIDINE 20 MG TAB FEEDTUBE SCH ×2 (10:34→22:01)
[2021-06-12] MEDS: ASPIRIN 325 MG TAB PO SCH (10:34)
[2021-06-12] MEDS: dexAMETHasone 4 MG/ML VIAL IV SCH (10:34)
--- NOTE | 2021-06-12 11:52 | Progress Note ---
Assessment and Plan Assessment and Plan --Acute encephalopathy (improving) most likely secondary to pneumonia sepsis and suspected seizure versus stroke More alert and oriented today On 2 L nasal cannula oxygen improved More alert and oriented Wants to go home We will arrange for home oxygen and concentrator and send him home tomorrow with home physical therapy --Septic Shock POA Improved --Staph aureus bacteremia, cont vancomycin, reordered blood Cx -- 2018 novel coronavirus infection - Family says that he is not vaccinated against COVID-19 - Oxygen via nasal cannula 2 L/min - DuoNeb by nebulizer every 4 hours. -Initiated on remdesivir -Remdesivir day 5 over --Chronic Dysphagia with PEg malfunction - dysphagia, slurred speech since brain surgery Feb 2021 - pulled out PEG - consulted GI, replaced the tube -PEG tube replaced --Suspected Stroke - Patient is seen and evaluated by telemetry neurology for stroke versus seizure. -Continue aspirin 81 mg and Lipitor 40 mg p.o. daily. -Ordered for MRI of the brain and MRA of the brain and neck with and without contrast (LIFE SCIENCE TAXONOMIST shunt is MRI safe per daughter). - Echocardiogram with preserved EF - consulted neurology - PT OT following -- Lactic acidosis, likely due to underlying sepsis -cont iv fluid. Rocephin 2 g IV daily. vancomycin IV daily. Recheck blood cx --Hyperkalemia, resolved, monitor BMP --Hypernatremia, cont hypotonic fluid --Acute hypoxic respiratory failure Likely due to underlying Covid pneumonia Oxygen via nasal cannula 4. L/min. DuoNeb by nebulizer every 4 hours. 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 -- DVT prophylaxis SCD for DVT prophylaxis because of brain surgery. Pepcid 20 mg IV every 12 hours. Pepcid patient is a full code Subjective Date of service: 06/12/21 Principal diagnosis: change in mental status , COVID-19 Interval history: 80-year-old male with history of a brain mass with last surgery done in February of last year at [facility] was brought to the emergency room because of sudden alteration in mental status. per daughter Since the time of that surgery the patient has been having some instability with ambulation, some mild slurred speech, dysphagia with a PEG tube. Patient son says that the patient went for a nap late this afternoon and when he checked on him he was not responding. Patient eyes were open but essentially was unresponsive which is what prompted him to call for EMS. Patient was then tested positive for COVID-19, being treated for sepsis, dehydration and acute metabolic encephalopathy Hospital Course: 06/06: Currently on levophed. Oropharynx very dry. Spoke with con Quesada ([phone]) who is a nurse practitioner as well. 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 Last February he was at [place] for another surgery. After the surgery the patient had lost the swallow reflex and has had persistent dysphagia since then. He has had a PEG tube in that time.. Patient has had persistent hypernatremia and weight loss requiring tube feeds. He has had multiple repeat admissions for pneumonia and urinary tract infection. He was last hospitalized at [facility] for urinary tract infection. Per the daughter he also has a history of repeated falls. The daughter states that he does not have dementia. 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 Afterwards he is usual only alert and oriented x4 however his speech is sluggish due to issues with his swallow reflex. The daughter also stated that he has had repeat MRI scans since his LIFE SCIENCE TAXONOMIST shunt placement back in 2007 and that it is MRI safe. She also states that the patient has persistently low blood pressure. His primary care doctor had initiated midodrine 5 mg p.o. 3 times daily. The patient's baseline systolic blood pressure per the daughter is a usually in the 90s systolic. I discussed the patient's entire case with the daughter and she expressed gratitude for the update from our discussion. She states that if the care staff would need any questions please contact her number that is documented in the chart and my note currently. Currently treating the patient for septic shock due to presumed CAP Vs COVID pneumonia. Patient is unvaccinated for covid currently. Per the daughter no one has been sick at home. Continue empiric antibiotic therapy. Wean pressors as tolerated. Systolic blood pressure of 90 acceptable. Will initiate home midodrine 5 mg p.o. 3 times daily. High suspicion for delirium rather than stroke. Doubt that this is stroke but if MRI is desired it appears that it should be okay to complete even if patient has LIFE SCIENCE TAXONOMIST shunt based on my discussion with the daughter. 06/07: Tolerating TF, Na level still elevated, cont iv fluid, remains restrained and appears very confused today. Na level elevated, will change iv fluid to D5w, follow BMP. started on Remdesivir iv for 5 days. cont dexamethasone, follow blood cx. 06/08: cont hypotonic fluid, pulled out PEG - consulted GI. called daughter for update. Blood cx +ve for staph aureus - started on vancomycin, ID following, ordered repeat blood Cx. 06/09: replaced PEG tube, initiate TF, cont hypotonic fluid, patient remains confused. cont empiric abx, follow cx, repeat BMP in the am. Discussed with daughter and updated. Remdesivir day 3 today 06/10 Confused,Cont TF,Remdesivir Day#4 06/11/2021 patient less confused today--remdesivir day 5 On 4 L of nasal cannula oxygen 06/12/2021 Patient is more alert and oriented Patient wants to go home Patient is on 2 L nasal cannula oxygen We will arrange for home oxygen and concentrator and try to discharge him tomorrow We will discontinue the restraints and put him on Ativan Cachectic Needs physical therapy patient says he wants to go home Patient says that he has been here for 6 days which is accurate Objective - Constitutional Vitals: Vital Signs - 12hr 06/12/21 06/12/21 06/12/21 04:59 09:17 09:19 Temperature 98.2 F Pulse Rate 93 H Pulse Rate [ 106 H Bilateral Throughout] Respiratory 20 Rate Respiratory 22 Rate [Bilateral Throughout] Blood Pressure 150/78 O2 Sat by Pulse 97 93 Oximetry General appearance: Present: no acute distress, well-nourished - EENT Eyes: PERRL, EOM intact ENT: hearing intact, clear oral mucosa Ears: bilateral: normal - Neck Neck: supple, normal ROM - Respiratory Respiratory effort: normal Respiratory: bilateral: CTA - Breasts Breasts: normal - Cardiovascular Heart rate: 78 Rhythm: regular Heart Sounds: Present: S1 & S2. Absent: gallop, rub Extremities: pulses intact, No edema, normal color, Full ROM - Gastrointestinal General gastrointestinal: Present: soft, non-tender, non-distended, normal bowel sounds - Genitourinary Male genitourinary: normal - Integumentary Integumentary: clear, warm, dry - Musculoskeletal Musculoskeletal: 1, strength equal bilaterally - Neurologic Neurologic: moves all extremities - Psychiatric Psychiatric: memory intact, appropriate mood/affect, intact judgment & insight - Labs CBC & Chem 7: 06/11/21 14:46 06/11/21 14:46 Labs: Abnormal lab results 06/11/21 06/11/21 06/11/21 Range/Units 14:46 14:46 17:04 Hgb 9.4 L (11.8-15.2) gm/dl Hct 30.5 L (35.5-45.6) % MCV 83 L (84-94) fl MCH 26 L (28-32) pg MCHC 31 L (32-34) % RDW 17.4 H (13.2-15.2) % Lymph % (Auto) 8.8 L (13.4-35.0) % Lymph # (Auto) 0.7 L (1.2-5.4) K/mm3 Seg Neutrophils % 83.8 H (40.0-70.0) % Potassium 3.5 L (3.6-5.0) mmol/L Creatinine 0.5 L (0.8-1.3) mg/dL Glucose 110 H (75-100) mg/dL POC Glucose 114 H (70-105) mg/dL Calcium 8.3 L (8.4-10.2) mg/dL Total Protein 5.8 L (6.3-8.2) g/dL Albumin 2.4 L (3.9-5) g/dL HEART Score - HEART Score Troponin: Troponin T 0.012 ng/mL (0.00-0.029) 06/05/21 20:35
--- NOTE | 2021-06-12 12:03 | Progress Note ---
Assessment and Plan 1. Hypernatremia: 2/2 dehydration. Improved. Monitor Sodium level. 2. FEN: Replete lytes as needed Monitor lytes and volume status. 3. Acute hypoxic resp failure, POA: Likely secondary to COVID-19 infection versus other pneumonia. Supplemental O2. Remdesivir and Decadron. Monitor. 4. Covid-19 infection: As above. Followed by ID. Monitor. 5. Staph aureus bacteremia: Unclear source. Followed by ID. 6. Acute encephalopathy: Likely secondary to pneumonia. 7. Acute sepsis: S/p septic shock. Will sign off and see patient as needed. Subjective: Patient was seen and examined at the bedside. Examination: General appearance: well-developed, appears stated age, emaciated, no distress HEENT: atraumatic, JODY Neck: trachea midline Respiratory: diminished breath sounds Heart: S1S2, regular, no murmur Abdomen: obese, soft, bowel sounds heard, NT, PEG tube noted Integumentary: no obvious rash noted Neurologic: lethargic, on restrains Ext: no edema noted Subjective Date of service: 06/12/21 Principal diagnosis: change in mental status , COVID-19 Objective - Vital Signs Vital signs: Vital Signs - 12hr 06/12/21 06/12/21 06/12/21 04:59 09:17 09:19 Temperature 98.2 F Pulse Rate 93 H Pulse Rate [ 106 H Bilateral Throughout] Respiratory 20 Rate Respiratory 22 Rate [Bilateral Throughout] Blood Pressure 150/78 O2 Sat by Pulse 97 93 Oximetry - Lab 06/13/21 17:32 06/12/21 14:28 Most recent lab results ABG pH 7.300 pH Units (7.350-7.450) L 06/06/21 01:50 ABG pCO2 56.7 mm Hg 06/06/21 01:50 ABG pO2 170.4 mm Hg (80.0-90.0) H 06/06/21 01:50 ABG HCO3 27.3 mmol/L (20.0-26.0) H 06/06/21 01:50 ABG O2 Saturation 98.9 % (95.0-99.0) 06/06/21 01:50 Calcium 8.3 mg/dL (8.4-10.2) L 06/11/21 14:46 Phosphorus 2.90 mg/dL (2.5-4.5) 06/09/21 05:41 Medications & Allergies - Medications Allergies/Adverse Reactions: Allergies No Known Allergies Allergy (Verified 06/07/21 12:22) Home Medications: Home Medications Medication Instructions Recorded Confirmed Last Taken Type Melatonin [Melatonin 5MG TAB] 2.5 mg PO HS 06/07/21 06/07/21 Unknown History Midodrine [Proamatine] 5 mg PO TID 06/07/21 06/07/21 Unknown History oxyCODONE /ACETAMINOPHEN [Percocet 1 tab PO Q4HR 06/07/21 06/07/21 Unknown History 5/325] Active Medications: Generic Name Dose Route Start Last Admin Trade Name Freq PRN Reason Stop Dose Admin Acetaminophen 650 mg 06/06/21 02:49 Acetaminophen 325 Mg Tab PO Q4H PRN Pain MILD(1-3)/Fever >100.5/LOPEZ Albuterol 2.5 mg 06/06/21 02:49 Albuterol 2.5 Mg/3 Ml Nebu IH Q3HRT PRN Shortness Of Breath Albuterol/Ipratropium 1 ampul 06/10/21 20:00 06/12/21 09:18 Ipratropium/Albuterol Sulfate 3 Ml Ampul.Neb IH 1 ampul TIDRT JACKY Administration Lipase/Protease/Amylase 1 each 06/07/21 16:00 Lipase 10,500/Protease 25,000/Amylase 43,750 (Units) Dr Caraballo FEEDTUBE PRN PRN For Clogged Feeding Tube Aspirin 325 mg 06/07/21 10:00 06/12/21 10:34 Aspirin 325 Mg Tab PO 325 mg QDAY JACKY Administration Atorvastatin Calcium 40 mg 06/06/21 22:00 06/11/21 21:04 Atorvastatin 40 Mg Tab PO 40 mg QHS JACKY Administration Dexamethasone 6 mg 06/06/21 10:00 06/12/21 10:34 Dexamethasone 4 Mg/Ml Vial IV 06/14/21 10:01 6 mg DAILY JACKY Administration Famotidine 20 mg 06/10/21 22:00 06/12/21 10:34 Famotidine 20 Mg Tab FEEDTUBE 20 mg BID JACKY Administration Hydralazine HCl 10 mg 06/06/21 03:08 Hydralazine 20 Mg/1 Ml Inj IV Q6H PRN SBP >/=170; DBP >/=100 Hydromorphone HCl 0.5 mg 06/06/21 02:49 Hydromorphone 1 Mg/1 Ml Inj IV Q3H PRN Pain , Severe (7-10) Dextrose 1,000 mls @ 30 mls/hr 06/08/21 14:00 06/12/21 05:19 D5w IV 75 mls/hr DIRECT JACKY Administration Cefazolin Sodium 2 gm/ Sodium 100 mls @ 200 mls/hr 06/09/21 16:00 06/12/21 08:24 Chloride IV 06/22/21 16:29 200 mls/hr Q8H JACKY Administration Labetalol HCl 10 mg 06/06/21 02:49 Labetalol 20 Mg/4 Ml Inj IV Q5MIN PRN to maintain SBP < 180 Levetiracetam 500 mg 06/10/21 18:00 06/12/21 05:18 Levetiracetam 500 Mg/5 Ml Oral Liqd FEEDTUBE 500 mg Q12H JACKY Administration Morphine Sulfate 2 mg 06/06/21 02:49 Morphine 2 Mg/1 Ml Inj IV Q4H PRN Pain, Moderate (4-6) Ondansetron HCl 4 mg 06/06/21 02:49 Ondansetron 4 Mg/2 Ml Inj IV Q8H PRN Nausea And Vomiting Simple Syrup 15 ml 06/07/21 16:00 06/10/21 05:30 Simple Syrup 15 Ml FEEDTUBE 15 ml PRN PRN Administration Hypoglycemia Simple Syrup 30 ml 06/07/21 16:00 Simple Syrup 15 Ml FEEDTUBE PRN PRN Hypoglycemia Sodium Bicarbonate 325 mg 06/07/21 16:00 Sodium Bicarbonate 325 Mg Tab FEEDTUBE PRN PRN For Clogged Feeding Tube Sodium Chloride 10 ml 06/06/21 10:00 06/12/21 10:33 Sodium Chloride 0.9% 10 Ml Flush Syringe IV 10 ml BID JACKY Administration Sodium Chloride 10 ml 06/07/21 08:16 Sodium Chloride 0.9% 50 Ml Ivpb IV PRN PRN FLUSH
[2021-06-12 15:13] LABS: Blood Urea Nitrogen 13 mg/dL (9-20); Calcium 8.8 mg/dL (8.4-10.2); Hemolysis Index 21
[2021-06-12 15:14] LABS: BUN/Creatinine Ratio 22
--- NOTE | 2021-06-12 17:07 | Cat Scan Report ---
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 TECHNIQUE: Routine CT head without contrast. All CT scans at this location are performed using CT dos e reduction for ALARA by means of automated exposure control. COMPARISON: CT scan of the head from 06/05/2021 FINDINGS: BRAIN / INTRACRANIAL CONTENTS: Extraventricular drainage shunt entering via left frontal matilda hole. Tip of this shunt against the ve ntricular wall inferiorly; unchanged; low attenuation areas around the shunt in the left frontal lobe ; unchanged Lateral ventricles and third ventricle are slightly generous; mild dilatation of temporal horn tips; unchanged since the recent CT scan from 06/05/2021; increased slightly since 04/09/2017 i occipital supervisor scrap preparation niectomy; surgical defect in the posterior cerebral lump; compensatory enlargement of fourth ventricl e No acute hemorrhage, mass effect, midline shift, hydrocephalus, or acute, large territorial infarct. No chronic infarct or focal atrophy. Normal brain volume and ventricular/sulcal size for age. No sign ificant white matter abnormality. CRANIOCERVICAL JUNCTION: No significant abnormality. ORBITS: No significant abnormality of visualized orbits. SINUSES / MASTOIDS: No significant abnormality of the visualized paranasal sinuses or mastoid air aileen ls. ADDITIONAL FINDINGS: None. IMPRESSION: Lateral ventricles and third ventricle remain unchanged since 06/05/2021; increased slightly since Signer Name: Melinda Olivas MD Signed: 06/12/2021 5:02 PM Workstation Name: [id number]
[2021-06-13] MEDS: levETIRAcetam 500 MG/5 ML ORAL LIQD FEEDTUBE SCH (05:31)
--- NOTE | 2021-06-13 07:41 | Progress Note ---
Assessment and Plan Assessment and plan: --Acute encephalopathy (improving) most likely secondary to pneumonia sepsis and suspected seizure versus stroke More alert and oriented today On 2 L nasal cannula oxygen , Wants to go home Home O2 evaluation, home O2 set up --Septic Shock POA/Improved --Staph aureus bacteremia, cont vancomycin, reordered blood Cx -- 2018 novel coronavirus infection - Family says that he is not vaccinated against COVID-19 - Oxygen via nasal cannula 2 L/min - DuoNeb by nebulizer every 4 hours. -Initiated on remdesivir -Remdesivir day 5 over --Chronic Dysphagia with PEg malfunction - dysphagia, slurred speech since brain surgery Feb 2021 - pulled out PEG - consulted GI, replaced the tube -PEG tube replaced --Suspected Stroke - Patient is seen and evaluated by telemetry neurology for stroke versus seizure . -Continue aspirin 81 mg and Lipitor 40 mg p.o. daily. -Ordered for MRI of the brain and MRA of the brain and neck with and without contrast ([employer] shunt is MRI safe per daughter). - Echocardiogram with preserved EF - consulted neurology - PT OT following -- Lactic acidosis, likely due to underlying sepsis -cont iv fluid. Rocephin 2 g IV daily. vancomycin IV daily. Recheck blood cx --Hyperkalemia, resolved, monitor BMP --Hypernatremia, cont hypotonic fluid --Acute hypoxic respiratory failure Likely due to underlying Covid pneumonia Oxygen via nasal cannula 4. L/min. DuoNeb by nebulizer every 4 hours. Albuterol via nebulizer every 4 hours as needed --Moderate protein calorie malnutrition - Vital AF tube feed supplementation --History of brain surgery for benign tumor - Last procedure Feb 2021 - had procedure in 2007 for tumor with vp patient shunt placement due to hydrocephalus - request records from [place] and [facility] - please refer to hospital course 06/06 encounter. -- DVT prophylaxis SCD for DVT prophylaxis because of brain surgery. Pepcid 20 mg IV every 12 hours. Pepcid patient is a full code Subjective Date of service: 06/12/21 Principal diagnosis: change in mental status , COVID-19 Interval history: 80-year-old male with history of a brain mass with last surgery done in February of last year at [facility] was brought to the emergency room because of sudden alteration in mental status. per daughter Since the time of that surgery the patient has been having some instability with ambulation, some mild slurred sp eech, dysphagia with a PEG tube. Patient son says that the patient went for a nap late this afternoon and when he checked on him he was not responding. Patient eyes were open but essentially was unresponsive which is what prompted him to call for EMS. Patient was then tested positive for COVID-19, being treated for sepsis, dehydration and acute metabolic encephalopathy Hospital Course: 06/06: Currently on levophed. Oropharynx very dry. Spoke with con Quesada ([phone]) who is a nurse practitioner as well. 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 He is found to have developed subsequent hydrocephalus which required [employer] INSTRUCTOR shunt placement. Last February he was at [facility] for another surgery. After the surgery the patient had lost the swallow reflex and has had persistent dysphagia since then. He has had a PEG tube in that time.. Patient has had persistent hypernatremia and weight l oss requiring tube feeds. He has had multiple repeat admissions for pneumonia and urinary tract infection. He was last hospitalized at [facility] for urinary tract infection. Per the daughter he also has a history of repeated falls. The daughter states that he does not have dementia. 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 Afterwards he is usual only alert and oriented x4 however his speech is sluggish due to issues with his swallow reflex. 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 She also states that the patient has persistently low blood pressure. His primary care doctor had initiated midodrine 5 mg p.o. 3 times daily. The patient's baseline systolic blood pressure per the daughter is a usually in the 90s systolic. I discussed the patient's entire case with the daughter and she expressed gratitude for the update from our discussion. She states that if the care staff would need any questions please contact her number that is documented in the chart and my note currently. Currently treating the patient for septic shock due to presumed CAP Vs COVID pneumonia. Patient is unvaccinated for covid currently. Per the daughter no one has been sick at home. Continue empiric antibiotic therapy. Wean pressors as tolerated. Systolic blood pressure of 90 acceptable. Will initiate home midodrine 5 mg p.o. 3 times daily. High suspicion for delirium rather than stroke. Doubt that this is stroke but if MRI is desired it appears that it should be okay to complete even if patient has [employer] INSTRUCTOR shunt based on my discussion with the daughter. 06/07: Tolerating TF, Na level still elevated, cont iv fluid, remains restrained and appears very confused today. Na level elevated, will change iv fluid to D5w, follow BMP. started on Remdesivir iv for 5 days. cont dexamethasone, follow blood cx. 06/08: cont hypotonic fluid, pulled out PEG - consulted GI. called daughter for update. Blood cx +ve for staph aureus - started on vancomycin, ID following, ordered repeat blood Cx. 06/09: replaced PEG tube, initiate TF, cont hypotonic fluid, patient remains confused. cont empiric abx, follow cx, repeat BMP in the am. Discussed with daughter and updated. Remdesivir day 3 today 06/10 Confused,Cont TF,Remdesivir Day#4 06/11/2021 patient less confused today--remdesivir day 5 On 4 L of nasal cannula oxygen 06/12/2021, alert and awake patient wants to go home Patient is on 2 L nasal cannula oxygen 06/13; patient is requiring 2 to 3 L of nasal cannula oxygen Home O2 set up, possible DC tomorrow if stable History Interval history: I have seen and examined the patient at the bedside Patient's chart and medications reviewed Patient is confused and agitated No new complaints Hospitalist Physical - Constitutional Vitals: Temp Pulse Resp BP Pulse Ox 97.6 F 76 18 123/77 92 06/13/21 06:10 06/13/21 06:10 06/13/21 06:10 06/13/21 06:10 06/13/21 06:10 General appearance: Present: no acute distress, well-nourished - EENT Eyes: Present: PERRL, EOM intact - Neck Neck: Present: supple, normal ROM - Respiratory Respiratory effort: normal Respiratory: bilateral: diminished, negative: rales, rhonchi, wheezing - Cardiovascular Rhythm: regular Heart Sounds: Present: S1 & S2 - Extremities Extremities: no ischemia, No edema - Abdominal General gastrointestinal: soft, non-tender, non-distended, normal bowel sounds - Integumentary Integumentary: Present: clear, warm - Psychiatric Psychiatric: cooperative, other (Confused at times) - Neurologic Neurologic: moves all extremities HEART Score - HEART Score Troponin: Troponin T 0.012 ng/mL (0.00-0.029) 06/05/21 20:35 Results - Labs CBC & Chem 7: 06/11/21 14:46 06/12/21 14:28 Labs: Laboratory Last Values WBC 7.4 K/mm3 (4.5-11.0) 06/11/21 14:46 RBC 3.66 M/mm3 (3.65-5.03) 06/11/21 14:46 Hgb 9.4 gm/dl (11.8-15.2) L 06/11/21 14:46 Hct 30.5 % (35.5-45.6) L 06/11/21 14:46 MCV 83 fl (84-94) L 06/11/21 14:46 MCH 26 pg (28-32) L 06/11/21 14:46 MCHC 31 % (32-34) L 06/11/21 14:46 RDW 17.4 % (13.2-15.2) H 06/11/21 14:46 Plt Count 262 K/mm3 (140-440) 06/11/21 14:46 Lymph % (Auto) 8.8 % (13.4-35.0) L 06/11/21 14:46 [place] % (Auto) 6.5 % (0.0-7.3) 06/11/21 14:46 Eos % (Auto) 0.7 % (0.0-4.3) 06/11/21 14:46 Baso % (Auto) 0.2 % (0.0-1.8) 06/11/21 14:46 Lymph # (Auto) 0.7 K/mm3 (1.2-5.4) L 06/11/21 14:46 [place] # (Auto) 0.5 K/mm3 (0.0-0.8) 06/11/21 14:46 Eos # (Auto) 0.1 K/mm3 (0.0-0.4) 06/11/21 14:46 Baso # (Auto) 0.0 K/mm3 (0.0-0.1) 06/11/21 14:46 Add Manual Diff Complete 06/09/21 05:41 Total Counted 100 06/09/21 05:41 Seg Neutrophils % 83.8 % (40.0-70.0) H 06/11/21 14:46 Seg Neuts % (Manual) 97.0 % (40.0-70.0) H 06/09/21 05:41 Band Neutrophils % 1.0 % 06/09/21 05:41 Lymphocytes % (Manual) 0 % (13.4-35.0) L 06/09/21 05:41 Reactive Lymphs % (Man) 0 % 06/09/21 05:41 Monocytes % (Manual) 2.0 % (0.0-7.3) 06/09/21 05:41 Eosinophils % (Manual) 0 % (0.0-4.3) 06/09/21 05:41 Basophils % (Manual) 0 % (0.0-1.8) 06/09/21 05:41 Metamyelocytes % 0 % 06/09/21 05:41 Myelocytes % 0 % 06/09/21 05:41 Promyelocytes % 0 % 06/09/21 05:41 Blast Cells % 0 % 06/09/21 05:41 Nucleated RBC % Not Reportable 06/09/21 05:41 Seg Neutrophils # 6.2 K/mm3 (1.8-7.7) 06/11/21 14:46 Seg Neutrophils # Man 20.0 K/mm3 (1.8-7.7) H 06/09/21 05:41 Band Neutrophils # 0.2 K/mm3 06/09/21 05:41 Lymphocytes # (Manual) 0.0 K/mm3 (1.2-5.4) L 06/09/21 05:41 Abs React Lymphs (Man) 0.0 K/mm3 06/09/21 05:41 Monocytes # (Manual) 0.4 K/mm3 (0.0-0.8) 06/09/21 05:41 Eosinophils # (Manual) 0.0 K/mm3 (0.0-0.4) 06/09/21 05:41 Basophils # (Manual) 0.0 K/mm3 (0.0-0.1) 06/09/21 05:41 Metamyelocytes # 0.0 K/mm3 06/09/21 05:41 Myelocytes # 0.0 K/mm3 06/09/21 05:41 Promyelocytes # 0.0 K/mm3 06/09/21 05:41 Blast Cells # 0.0 K/mm3 06/09/21 05:41 WBC Morphology Not Reportable 06/09/21 05:41 Hypersegmented Neuts Not Reportable 06/09/21 05:41 Hyposegmented Neuts Not Reportable 06/09/21 05:41 Hypogranular Neuts Not Reportable 06/09/21 05:41 Smudge Cells Not Reportable 06/09/21 05:41 Toxic Granulation Not Reportable 06/09/21 05:41 Toxic Vacuolation Not Reportable 06/09/21 05:41 Dohle Bodies Not Reportable 06/09/21 05:41 Pelger-Huet Anomaly Not Reportable 06/09/21 05:41 Pasha Rods Not Reportable 06/09/21 05:41 Platelet Estimate Consistent w auto 06/09/21 05:41 Clumped Platelets Not Reportable 06/09/21 05:41 Plt Clumps, EDTA Not Reportable 06/09/21 05:41 Large Platelets Not Reportable 06/09/21 05:41 Giant Platelets Not Reportable 06/09/21 05:41 Platelet Satelliting Not Reportable 06/09/21 05:41 Plt Morphology Comment Not Reportable 06/09/21 05:41 RBC Morphology Not Reportable 06/09/21 05:41 Dimorphic RBCs Not Reportable 06/09/21 05:41 Polychromasia Not Reportable 06/09/21 05:41 Hypochromasia 1+ 06/09/21 05:41 Poikilocytosis Not Reportable 06/09/21 05:41 Anisocytosis Not Reportable 06/09/21 05:41 Microcytosis Not Reportable 06/09/21 05:41 Macrocytosis Not Reportable 06/09/21 05:41 Spherocytes Not Reportable 06/09/21 05:41 Pappenheimer Bodies Not Reportable 06/09/21 05:41 Sickle Cells Not Reportable 06/09/21 05:41 Target Cells 1+ 06/09/21 05:41 Tear Drop Cells Not Reportable 06/09/21 05:41 Ovalocytes Not Reportable 06/09/21 05:41 Helmet Cells Not Reportable 06/09/21 05:41 [place] Bodies Not Reportable 06/09/21 05:41 [place] Rings Not Reportable 06/09/21 05:41 [place] Cells Not Reportable 06/09/21 05:41 Bite Cells Not Reportable 06/09/21 05:41 Crenated Cell Not Reportable 06/09/21 05:41 Elliptocytes Not Reportable 06/09/21 05:41 Acanthocytes (Spur) Not Reportable 06/09/21 05:41 Rouleaux Not Reportable 06/09/21 05:41 Hemoglobin C Crystals Not Reportable 06/09/21 05:41 Schistocytes Not Reportable 06/09/21 05:41 Malaria parasites Not Reportable 06/09/21 05:41 Lázaro Bodies Not Reportable 06/09/21 05:41 Hem Pathologist Commnt No 06/09/21 05:41 PT 16.9 Sec. (12.2-14.9) H 06/05/21 20:35 INR 1.24 (0.87-1.13) H 06/05/21 20:35 APTT 32.1 Sec. (24.2-36.6) 06/05/21 20:35 Thrombin Time 19.7 Sec. (15.1-19.6) H 06/05/21 20:35 D-Dimer 2087.18 ng/mlDDU (0-234) H 06/05/21 21:42 ABG pH 7.300 pH Units (7.350-7.450) L 06/06/21 01:50 ABG pCO2 56.7 mm Hg 06/06/21 01:50 ABG pO2 170.4 mm Hg (80.0-90.0) H 06/06/21 01:50 ABG HCO3 27.3 mmol/L (20.0-26.0) H 06/06/21 01:50 ABG O2 Saturation 98.9 % (95.0-99.0) 06/06/21 01:50 ABG O2 Content 19.4 (0.0-44) 06/06/21 01:50 ABG Base Excess -0.2 mmol/L (-2.0-3.0) 06/06/21 01:50 ABG Hemoglobin 14.0 gm/dl (14.0-18.0) 06/06/21 01:50 ABG Carboxyhemoglobin 1.3 % (0.0-5.0) 06/06/21 01:50 ABG Methemoglobin 0.7 % (0.0-1.5) 06/06/21 01:50 Oxyhemoglobin 97.0 % (95.0-99.0) 06/06/21 01:50 FiO2 100 % 06/06/21 01:50 Sodium 137 mmol/L (137-145) 06/12/21 14:28 Potassium 3.6 mmol/L (3.6-5.0) 06/12/21 14:28 Chloride 99.9 mmol/L (98-107) 06/12/21 14:28 Carbon Dioxide 30 mmol/L (22-30) 06/12/21 14:28 Anion Gap 11 mmol/L 06/12/21 14:28 BUN 13 mg/dL (9-20) 06/12/21 14:28 Creatinine 0.6 mg/dL (0.8-1.3) L 06/12/21 14:28 Estimated GFR > 60 ml/min 06/12/21 14:28 BUN/Creatinine Ratio 22 % 06/12/21 14:28 Glucose 96 mg/dL (75-100) 06/12/21 14:28 POC Glucose 185 mg/dL (70-105) H 06/12/21 21:37 Lactic Acid 3.10 mmol/L (0.7-2.0) H* 06/05/21 20:35 Calcium 8.8 mg/dL (8.4-10.2) 06/12/21 14:28 Phosphorus 2.50 mg/dL (2.5-4.5) 06/12/21 14:28 Ferritin 295.3 ng/mL (30.0-300.0) 06/05/21 21:42 Total Bilirubin 0.40 mg/dL (0.1-1.2) 06/11/21 14:46 AST 25 units/L (5-40) 06/11/21 14:46 ALT 15 units/L (7-56) 06/11/21 14:46 Alkaline Phosphatase 55 units/L (35-129) 06/11/21 14:46 Lactate Dehydrogenase 167 units/L (91-180) 06/05/21 21:42 Total Creatine Kinase 149 units/L (55-170) 06/05/21 20:35 CK-MB (CK-2) 1.4 ng/mL (0.0-4.0) 06/05/21 20:35 CK-MB (CK-2) Rel Index 0.9 (0-4) 06/05/21 20:35 Troponin T 0.012 ng/mL (0.00-0.029) 06/05/21 20:35 C-Reactive Protein 6.00 mg/dL (0.00-1.30) H 06/05/21 21:42 NT-Pro-B Natriuret Pep 674.6 pg/mL (0-900) 06/05/21 21:42 Total Protein 5.8 g/dL (6.3-8.2) L 06/11/21 14:46 Albumin 2.4 g/dL (3.9-5) L 06/11/21 14:46 Albumin/Globulin Ratio 0.7 % 06/11/21 14:46 Procalcitonin 16.73 ng/mL (<0.15) 06/05/21 21:42 TSH 0.307 mlU/mL (0.270-4.200) 06/08/21 15:31 Free T4 1.05 ng/dL (0.76-1.46) 06/08/21 15:31 Urine Color Yellow (Yellow) 06/06/21 05:41 Urine Turbidity Clear (Clear) 06/06/21 05:41 Urine pH 5.0 (5.0-7.0) 06/06/21 05:41 Ur Specific [place] 1.039 (1.003-1.030) H 06/06/21 05:41 Urine Protein <15 mg/dl mg/dL (Negative) 06/06/21 05:41 Urine Glucose (UA) Neg mg/dL (Negative) 06/06/21 05:41 Urine Ketones Neg mg/dL (Negative) 06/06/21 05:41 Urine Blood Neg (Negative) 06/06/21 05:41 Urine Nitrite Neg (Negative) 06/06/21 05:41 Urine Bilirubin Neg (Negative) 06/06/21 05:41 Urine Urobilinogen < 2.0 mg/dL (<2.0) 06/06/21 05:41 Ur Leukocyte Esterase Neg (Negative) 06/06/21 05:41 Urine WBC (Auto) 1.0 /HPF (0.0-6.0) 06/06/21 05:41 Urine RBC (Auto) < 1.0 /HPF (0.0-6.0) 06/06/21 05:41 Hyaline Casts 1 /LPF 06/06/21 05:41 Urine Opiates Screen Negative 06/06/21 05:41 Urine Methadone Screen Negative 06/06/21 05:41 Ur Barbiturates Screen Negative 06/06/21 05:41 Ur Phencyclidine Scrn Negative 06/06/21 05:41 Ur Amphetamines Screen Negative 06/06/21 05:41 U Benzodiazepines Scrn Negative 06/06/21 05:41 Urine Cocaine Screen Negative 06/06/21 05:41 U Marijuana (THC) Screen Negative 06/06/21 05:41 Drugs of Abuse Note Disclamer 06/06/21 05:41 Plasma/Serum Alcohol < 0.01 % (0-0.07) 06/05/21 20:35 Coronavirus (PCR) Positive (Negative) A 06/06/21 09:00 Blood Type AB POSITIVE 06/05/21 20:35 Antibody Screen Negative 06/05/21 20:35 Microbiology: Microbiology 06/08/21 15:31 Peripheral/Venous Blood Culture - Preliminary NO GROWTH AFTER 4 DAYS 06/08/21 15:31 Peripheral/Venous Blood Culture - Preliminary NO GROWTH AFTER 4 DAYS 06/09/21 06:20 Peripheral/Venous Blood Culture - Preliminary NO GROWTH AFTER 72 HOURS 06/09/21 05:41 Peripheral/Venous Blood Culture - Preliminary NO GROWTH AFTER 72 HOURS Garcia/IV: Voiding Method Condom Catheter Active Medications - Current Medications Current Medications: Generic Name Dose Route Start Last Admin Trade Name Freq PRN Reason Stop Dose Admin Acetaminophen 650 mg 06/06/21 02:49 Acetaminophen 325 Mg Tab PO Q4H PRN Pain MILD(1-3)/Fever >100.5/LOPEZ Albuterol 2.5 mg 06/06/21 02:49 06/12/21 20:29 Albuterol 2.5 Mg/3 Ml Nebu IH 2.5 mg Q3HRT PRN Administration Shortness Of Breath Albuterol/Ipratropium 1 ampul 06/10/21 20:00 06/12/21 20:28 Ipratropium/Albuterol Sulfate 3 Ml Ampul.Neb IH 1 ampul TIDRT JACKY Administration Lipase/Protease/Amylase 1 each 06/07/21 16:00 Lipase 10,500/Protease 25,000/Amylase 43,750 (Units) Dr Caraballo FEEDTUBE PRN PRN For Clogged Feeding Tube Aspirin 325 mg 06/07/21 10:00 06/12/21 10:34 Aspirin 325 Mg Tab PO 325 mg QDAY JACKY Administration Atorvastatin Calcium 40 mg 06/06/21 22:00 06/12/21 22:01 Atorvastatin 40 Mg Tab PO 40 mg QHS JACKY Administration Dexamethasone 6 mg 06/06/21 10:00 06/12/21 10:34 Dexamethasone 4 Mg/Ml Vial IV 06/14/21 10:01 6 mg DAILY JACKY Administration Famotidine 20 mg 06/10/21 22:00 06/12/21 22:01 Famotidine 20 Mg Tab FEEDTUBE 20 mg BID JACKY Administration Hydralazine HCl 10 mg 06/06/21 03:08 Hydralazine 20 Mg/1 Ml Inj IV Q6H PRN SBP >/=170; DBP >/=100 Hydromorphone HCl 0.5 mg 06/06/21 02:49 Hydromorphone 1 Mg/1 Ml Inj IV Q3H PRN Pain , Severe (7-10) Dextrose 1,000 mls @ 30 mls/hr 06/08/21 14:00 06/12/21 05:19 D5w IV 75 mls/hr DIRECT JACKY Administration Cefazolin Sodium 2 gm/ Sodium 100 mls @ 200 mls/hr 06/09/21 16:00 06/13/21 0 0:20 Chloride IV 06/22/21 16:29 200 mls/hr Q8H JACKY Administration Labetalol HCl 10 mg 06/06/21 02:49 Labetalol 20 Mg/4 Ml Inj IV Q5MIN PRN to maintain SBP < 180 Levetiracetam 500 mg 06/10/21 18:00 06/13/21 05:31 Levetiracetam 500 Mg/5 Ml Oral Liqd FEEDTUBE 500 mg Q12H JACKY Administration Lorazepam 1 mg 06/12/21 12:30 Lorazepam 2 Mg/Ml Vial IM Q3H PRN Agitation Morphine Sulfate 2 mg 06/06/21 02:49 Morphine 2 Mg/1 Ml Inj IV Q4H PRN Pain, Moderate (4-6) Ondansetron HCl 4 mg 06/06/21 02:49 Ondansetron 4 Mg/2 Ml Inj IV Q8H PRN Nausea And Vomiting Simple Syrup 15 ml 06/07/21 16:00 06/10/21 05:30 Simple Syrup 15 Ml FEEDTUBE 15 ml PRN PRN Administration Hypoglycemia Simple Syrup 30 ml 06/07/21 16:00 Simple Syrup 15 Ml FEEDTUBE PRN PRN Hypoglycemia Sodium Bicarbonate 325 mg 06/07/21 16:00 Sodium Bicarbonate 325 Mg Tab FEEDTUBE PRN PRN For Clogged Feeding Tube Sodium Chloride 10 ml 06/06/21 10:00 06/12/21 22:01 Sodium Chloride 0.9% 10 Ml Flush Syringe IV 10 ml BID JACKY Administration Sodium Chloride 10 ml 06/07/21 08:16 Sodium Chloride 0.9% 50 Ml Ivpb IV PRN PRN FLUSH Nutrition/Malnutrition Assess - Dietary Evaluation Nutrition/Malnutrition Findings: Nutrition Notes Start: 06/07/21 14:32 Freq: Status: Active Protocol: Document 06/10/21 14:23 BALDEMAR (Rec: 06/10/21 14:41 BALDEMAR [id number]) Nutrition Notes Initial or Follow up Reassessment Current Diagnosis Sepsis,Respiratory Failure Other Pertinent Diagnosis COVID-19, Bilateral Pneumonia, Bacteremia, Acute Encephalopathy. Current Diet TF- Vital AF @ 40 ml/hr (since L 06/06). Labs/Tests 06/10: Na 154, K 3.5, Cl 117.1 , Crea 0.6, Glu 65. Pertinent Medications 06/10: Nutritionally unremarkable. Height 5 ft 9 in Weight 62.596 kg [place] Body Weight (kg) 72.72 BMI 20.3 Weight change and time frame No body weight change reported in 3 days. Weight Status Appropriate Subjective/Other Information RD consult on routine F/U on TF tolerance. TF well tolerated, according to RN notes. Pt ready to be discharged to SNF. Percent of energy/protein needs met: Prescribed Vital AF @ 40 ml/hr provides for energy/protein needs (1,150 Kcal/72 g) during LOS, 66% Kcal; 95% AA. Burn Absent Trauma Absent GI Symptoms None Difficulty In Swallowing,Chewing Food Allergy No Skin Integrity/Comment Clear, warm, dry. Current % PO Other Minimum of two criteria No #1 Nutrition Diagnosis Inadequate oral intake Diagnosis Progress(for reassessment Continues documentation) Is patient on ventilator? No Is Patient Ambulatory and/or Out of Bed Yes REE-([facility]-ambulatory/OOB) [ [id number] [id number]] Calculation Used for Recommendations [facility] Additional Notes Protein: 1-1.2 g/Kg; 63-76 g/ day. Fluids: 1 ml/Kcal, or as per MD. Nutrition Intervention Nutrition Support: Continue Vital AF @ 40 ml/hr. Flush: 250 ml water Q 4 hr, or as per MD. Kcal 1,150 Protein (gm) 72 Carbohydrates (gm) 106 Fat (gm) 52 Fluid (mL) 777 Fiber (gm) 5 % RDI: 66% Kcal; 95% AA. Goal #1 Provide at least 75% of energy /protein needs through Enteral Feeding during LOS. Follow-Up By: 06/17/21 Additional Comments Continue monitoring TF tolerance and BM.
[2021-06-13] MEDS: IPRATROPIUM/ALBUTEROL SULFATE 3 ML AMPUL.NEB IH SCH ×3 (07:57→19:26)
[2021-06-13] MEDS: FAMOTIDINE 20 MG TAB FEEDTUBE SCH (11:20)
[2021-06-13] MEDS: dexAMETHasone 4 MG/ML VIAL IV SCH (11:25)
[2021-06-13 18:18] LABS: Eosinophils % (Auto) 0.2 % (0.0-4.3); Hematocrit 33.1 % (35.5-45.6); Hemoglobin 9.9 gm/dl (11.8-15.2); Lymphocytes # (Auto) 0.8 K/mm3 (1.2-5.4); Lymphocytes % (Auto) 4.8 % (13.4-35.0); Mean Corpuscular HGB Conc 30 % (32-34); Mean Corpuscular Volume 83 fl (84-94); Monocytes # (Auto) 0.9 K/mm3 (0.0-0.8); Monocytes % (Auto) 5.2 % (0.0-7.3); Platelet Count 298 K/mm3 (140-440); Red Blood Count 4.01 M/mm3 (3.65-5.03); Red Cell Distribution Width 17.6 % (13.2-15.2)
[2021-06-14] MEDS: FAMOTIDINE 20 MG TAB FEEDTUBE SCH ×3 (00:07→21:29)
[2021-06-14] MEDS: levETIRAcetam 500 MG/5 ML ORAL LIQD FEEDTUBE SCH (05:23)
[2021-06-14] MEDS: LORazepam 2 MG/ML VIAL IM PRN ×2 (05:37→21:30)
[2021-06-14] MEDS: IPRATROPIUM/ALBUTEROL SULFATE 3 ML AMPUL.NEB IH SCH ×3 (07:54→20:07)
[2021-06-14] MEDS: dexAMETHasone 4 MG/ML VIAL IV SCH (10:17)
--- NOTE | 2021-06-14 14:52 | Progress Note ---
Assessment and Plan Assessment and plan: --Acute encephalopathy (improving) most likely secondary to pneumonia sepsis and suspected seizure versus stroke More alert and oriented today On 2 L nasal cannula oxygen , Wants to go home Home O2 evaluation, home O2 set up --Septic Shock POA/Improved --Staph aureus bacteremia, cont vancomycin, reordered blood Cx --COVID-19 infection - Family says that he is not vaccinated against COVID-19 - Oxygen via nasal cannula 2 L/min - DuoNeb by nebulizer every 4 hours. -Initiated on remdesivir -Remdesivir day 5 over --Chronic Dysphagia with PEg malfunction - dysphagia, slurred speech since brain surgery Feb 2021 - pulled out PEG - consulted GI, replaced the tube -PEG tube replaced --Suspected Stroke - Patient is seen and evaluated by telemetry neurology for stroke versus seizure. -Continue aspirin 81 mg and Lipitor 40 mg p.o. daily. -Ordered for MRI of the brain and MRA of the brain and neck with and without contrast (LACE SEWER shunt is MRI safe per daughter). - Echocardiogram with preserved EF - consulted neurology - PT OT following -- Lactic acidosis, likely due to underlying sepsis -cont iv fluid. Rocephin 2 g IV daily. vancomycin IV daily. Recheck blood cx --Hyperkalemia, resolved, monitor BMP --Hypernatremia, cont hypotonic fluid --Acute hypoxic respiratory failure Likely due to underlying Covid pneumonia Oxygen via nasal cannula 4. L/min. DuoNeb by nebulizer every 4 hours. 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 -- DVT prophylaxis SCD for DVT prophylaxis because of brain surgery. Pepcid 20 mg IV every 12 hours. Pepcid patient is a full code Subjective Date of service: 06/12/21 Principal diagnosis: change in mental status , COVID-19 Interval history: 80-year-old male with history of a brain mass with last surgery done in February of last year at [facility] was brought to the emergency room because of sudden alteration in mental status. per daughter Since the time of that surgery the patient has been having some instability with ambulation, some mild slurred speech, dysphagia with a PEG tube. Patient son says that the patient went for a nap late this afternoon and when he checked on him he was not responding. Patient eyes were open but essentially was unresponsive which is what prompted him to call for EMS. Patient was then tested positive for COVID-19, being treated for sepsis, dehydration and acute metabolic encephalopathy Hospital Course: 06/06: Currently on levophed. Oropharynx very dry. Spoke with con Quesada ([phone]) who is a nurse practitioner as well. 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 Last February he was at [place] [facility] for another surgery. After the surgery the patient had lost the swallow reflex and has had persistent dysphagia since then. He has had a PEG tube in that time.. Patient has had persistent hypernatremia and weight loss requiring tube feeds. He has had multiple repeat admissions for pneumonia and urinary tract infection. He was last hospitalized at [facility], [place] for urinary tract infection. Per the daughter he also has a history of repeated falls. The daughter states that he does not have dementia. 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 Afterwards he is usual only alert and oriented x4 however his speech is sluggish due to issues with his swallow reflex. The daughter also stated that he has had repeat MRI scans since his LACE SEWER shunt placement back in 2007 and that it is MRI safe. She also states that the patient has persistently low blood pressure. His primary care doctor had initiated midodrine 5 mg p.o. 3 times daily. The patient's baseline systolic blood pressure per the daughter is a usually in the 90s systolic. I discussed the patient's entire case with the daughter and she expressed gratitude for the update from our discussion. She states that if the care staff would need any questions please contact her number that is documented in the chart and my note currently. Currently treating the patient for septic shock due to presumed CAP Vs COVID pneumonia. Patient is unvaccinated for covid currently. Per the daughter no one has been sick at home. Continue empiric antibiotic therapy. Wean pressors as tolerated. Systolic blood pressure of 90 acceptable. Will initiate home midodrine 5 mg p.o. 3 times daily. High suspicion for delirium rather than stroke. Doubt that this is stroke but if MRI is desired it appears that it should be okay to complete even if patient has LACE SEWER shunt based on my discussion with the daughter. 06/07: Tolerating TF, Na level still elevated, cont iv fluid, remains restrained and appears very confused today. Na level elevated, will change iv fluid to D5w, follow BMP. started on Remdesivir iv for 5 days. cont dexamethasone, follow blood cx. 06/08: cont hypotonic fluid, pulled out PEG - consulted GI. called daughter for update. Blood cx +ve for staph aureus - started on vancomycin, ID following, ordered repeat blood Cx. 06/09: replaced PEG tube, initiate TF, cont hypotonic fluid, patient remains confused. cont empiric abx, follow cx, repeat BMP in the am. Discussed with daughter and updated. Remdesivir day 3 today 06/10 Confused,Cont TF,Remdesivir Day#4 06/11/2021 patient less confused today--remdesivir day 5 On 4 L of nasal cannula oxygen 06/12/2021, alert and awake patient wants to go home Patient is on 2 L nasal cannula oxygen 06/13; patient is requiring 2 to 3 L of nasal cannula oxygen Home O2 set up, possible DC tomorrow if stable 06/14: Patient is severely agitated requiring restraints On 3 L of nasal cannula oxygen 06/14/2021 ;I called patient's son RICK/HUMPHREY Burgos at [phone] and discussed in detail patient's condition, tests and reports, procedures, consultants recommendation, treatment and discharge planning. I also informed him that patient most probably will be discharged tomorrow if stable, he had many questions, answered all of them I encouraged him to call back if he has any new concerns I also encouraged him to call case management tomorrow morning special needs for his lower form. He verbalized understanding and was appreciative of my call History Interval history: I have seen and examined the patient at the bedside Patient's chart and medications reviewed Patient is confused and agitated Requiring restraints for safety Patient is tolerating PEG feeds Hospitalist Physical - Constitutional Vitals: Temp Pulse Resp BP Pulse Ox 97.9 F 105 H 19 128/68 96 06/14/21 13:16 06/14/21 14:00 06/14/21 14:00 06/14/21 13:16 06/14/21 13:16 General appearance: Present: no acute distress, well-nourished, other (Agitated and restless requiring restraints) - EENT Eyes: Present: PERRL, EOM intact - Neck Neck: Present: supple, normal ROM - Respiratory Respiratory effort: normal Respiratory: bilateral: diminished, negative: rales, rhonchi, wheezing - Cardiovascular Rhythm: regular Heart Sounds: Present: S1 & S2 - Extremities Extremities: no ischemia, No edema - Abdominal General gastrointestinal: soft, non-tender, non-distended, normal bowel sounds - Integumentary Integumentary: Present: clear, warm - Psychiatric Psychiatric: agitated, other (Noncommunicative) - Neurologic Neurologic: moves all extremities HEART Score - HEART Score Troponin: Troponin T 0.012 ng/mL (0.00-0.029) 06/05/21 20:35 Results - Labs CBC & Chem 7: 06/13/21 17:32 06/12/21 14:28 Labs: Laboratory Last Values WBC 16.9 K/mm3 (4.5-11.0) H 06/13/21 17:32 RBC 4.01 M/mm3 (3.65-5.03) 06/13/21 17:32 Hgb 9.9 gm/dl (11.8-15.2) L 06/13/21 17:32 Hct 33.1 % (35.5-45.6) L 06/13/21 17:32 MCV 83 fl (84-94) L 06/13/21 17:32 MCH 25 pg (28-32) L 06/13/21 17:32 MCHC 30 % (32-34) L 06/13/21 17:32 RDW 17.6 % (13.2-15.2) H 06/13/21 17:32 Plt Count 298 K/mm3 (140-440) 06/13/21 17:32 Lymph % (Auto) 4.8 % (13.4-35.0) L 06/13/21 17:32 [place] % (Auto) 5.2 % (0.0-7.3) 06/13/21 17:32 Eos % (Auto) 0.2 % (0.0-4.3) 06/13/21 17:32 Baso % (Auto) 0.0 % (0.0-1.8) 06/13/21 17:32 Lymph # (Auto) 0.8 K/mm3 (1.2-5.4) L 06/13/21 17:32 [place] # (Auto) 0.9 K/mm3 (0.0-0.8) H 06/13/21 17:32 Eos # (Auto) 0.0 K/mm3 (0.0-0.4) 06/13/21 17:32 Baso # (Auto) 0.0 K/mm3 (0.0-0.1) 06/13/21 17:32 Add Manual Diff Complete 06/09/21 05:41 Total Counted 100 06/09/21 05:41 Seg Neutrophils % 89.8 % (40.0-70.0) H 06/13/21 17:32 Seg Neuts % (Manual) 97.0 % (40.0-70.0) H 06/09/21 05:41 Band Neutrophils % 1.0 % 06/09/21 05:41 Lymphocytes % (Manual) 0 % (13.4-35.0) L 06/09/21 05:41 Reactive Lymphs % (Man) 0 % 06/09/21 05:41 Monocytes % (Manual) 2.0 % (0.0-7.3) 06/09/21 05:41 Eosinophils % (Manual) 0 % (0.0-4.3) 06/09/21 05:41 Basophils % (Manual) 0 % (0.0-1.8) 06/09/21 05:41 Metamyelocytes % 0 % 06/09/21 05:41 Myelocytes % 0 % 06/09/21 05:41 Promyelocytes % 0 % 06/09/21 05:41 Blast Cells % 0 % 06/09/21 05:41 Nucleated RBC % Not Reportable 06/09/21 05:41 Seg Neutrophils # 15.2 K/mm3 (1.8-7.7) H 06/13/21 17:32 Seg Neutrophils # Man 20.0 K/mm3 (1.8-7.7) H 06/09/21 05:41 Band Neutrophils # 0.2 K/mm3 06/09/21 05:41 Lymphocytes # (Manual) 0.0 K/mm3 (1.2-5.4) L 06/09/21 05:41 Abs React Lymphs (Man) 0.0 K/mm3 06/09/21 05:41 Monocytes # (Manual) 0.4 K/mm3 (0.0-0.8) 06/09/21 05:41 Eosinophils # (Manual) 0.0 K/mm3 (0.0-0.4) 06/09/21 05:41 Basophils # (Manual) 0.0 K/mm3 (0.0-0.1) 06/09/21 05:41 Metamyelocytes # 0.0 K/mm3 06/09/21 05:41 Myelocytes # 0.0 K/mm3 06/09/21 05:41 Promyelocytes # 0.0 K/mm3 06/09/21 05:41 Blast Cells # 0.0 K/mm3 06/09/21 05:41 WBC Morphology Not Reportable 06/09/21 05:41 Hypersegmented Neuts Not Reportable 06/09/21 05:41 Hyposegmented Neuts Not Reportable 06/09/21 05:41 Hypogranular Neuts Not Reportable 06/09/21 05:41 Smudge Cells Not Reportable 06/09/21 05:41 Toxic Granulation Not Reportable 06/09/21 05:41 Toxic Vacuolation Not Reportable 06/09/21 05:41 Dohle Bodies Not Reportable 06/09/21 05:41 Pelger-Huet Anomaly Not Reportable 06/09/21 05:41 Pasha Rods Not Reportable 06/09/21 05:41 Platelet Estimate Consistent w auto 06/09/21 05:41 Clumped Platelets Not Reportable 06/09/21 05:41 Plt Clumps, EDTA Not Reportable 06/09/21 05:41 Large Platelets Not Reportable 06/09/21 05:41 Giant Platelets Not Reportable 06/09/21 05:41 Platelet Satelliting Not Reportable 06/09/21 05:41 Plt Morphology Comment Not Reportable 06/09/21 05:41 RBC Morphology Not Reportable 06/09/21 05:41 Dimorphic RBCs Not Reportable 06/09/21 05:41 Polychromasia Not Reportable 06/09/21 05:41 Hypochromasia 1+ 06/09/21 05:41 Poikilocytosis Not Reportable 06/09/21 05:41 Anisocytosis Not Reportable 06/09/21 05:41 Microcytosis Not Reportable 06/09/21 05:41 Macrocytosis Not Reportable 06/09/21 05:41 Spherocytes Not Reportable 06/09/21 05:41 Pappenheimer Bodies Not Reportable 06/09/21 05:41 Sickle Cells Not Reportable 06/09/21 05:41 Target Cells 1+ 06/09/21 05:41 Tear Drop Cells Not Reportable 06/09/21 05:41 Ovalocytes Not Reportable 06/09/21 05:41 Helmet Cells Not Reportable 06/09/21 05:41 [place] Bodies Not Reportable 06/09/21 05:41 Cuttyhunk Rings Not Reportable 06/09/21 05:41 [place] Cells Not Reportable 06/09/21 05:41 Bite Cells Not Reportable 06/09/21 05:41 Crenated Cell Not Reportable 06/09/21 05:41 Elliptocytes Not Reportable 06/09/21 05:41 Acanthocytes (Spur) Not Reportable 06/09/21 05:41 Rouleaux Not Reportable 06/09/21 05:41 Hemoglobin C Crystals Not Reportable 06/09/21 05:41 Schistocytes Not Reportable 06/09/21 05:41 Malaria parasites Not Reportable 06/09/21 05:41 Lázaro Bodies Not Reportable 06/09/21 05:41 Hem Pathologist Commnt No 06/09/21 05:41 PT 16.9 Sec. (12.2-14.9) H 06/05/21 20:35 INR 1.24 (0.87-1.13) H 06/05/21 20:35 APTT 32.1 Sec. (24.2-36.6) 06/05/21 20:35 Thrombin Time 19.7 Sec. (15.1-19.6) H 06/05/21 20:35 D-Dimer 2087.18 ng/mlDDU (0-234) H 06/05/21 21:42 ABG pH 7.300 pH Units (7.350-7.450) L 06/06/21 01:50 ABG pCO2 56.7 mm Hg 06/06/21 01:50 ABG pO2 170.4 mm Hg (80.0-90.0) H 06/06/21 01:50 ABG HCO3 27.3 mmol/L (20.0-26.0) H 06/06/21 01:50 ABG O2 Saturation 98.9 % (95.0-99.0) 06/06/21 01:50 ABG O2 Content 19.4 (0.0-44) 06/06/21 01:50 ABG Base Excess -0.2 mmol/L (-2.0-3.0) 06/06/21 01:50 ABG Hemoglobin 14.0 gm/dl (14.0-18.0) 06/06/21 01:50 ABG Carboxyhemoglobin 1.3 % (0.0-5.0) 06/06/21 01:50 ABG Methemoglobin 0.7 % (0.0-1.5) 06/06/21 01:50 Oxyhemoglobin 97.0 % (95.0-99.0) 06/06/21 01:50 FiO2 100 % 06/06/21 01:50 Sodium 137 mmol/L (137-145) 06/12/21 14:28 Potassium 3.6 mmol/L (3.6-5.0) 06/12/21 14:28 Chloride 99.9 mmol/L (98-107) 06/12/21 14:28 Carbon Dioxide 30 mmol/L (22-30) 06/12/21 14:28 Anion Gap 11 mmol/L 06/12/21 14:28 BUN 13 mg/dL (9-20) 06/12/21 14:28 Creatinine 0.6 mg/dL (0.8-1.3) L 06/12/21 14:28 Estimated GFR > 60 ml/min 06/12/21 14:28 BUN/Creatinine Ratio 22 % 06/12/21 14:28 Glucose 96 mg/dL (75-100) 06/12/21 14:28 POC Glucose 120 mg/dL (70-105) H 06/14/21 12:02 Lactic Acid 3.10 mmol/L (0.7-2.0) H* 06/05/21 20:35 Calcium 8.8 mg/dL (8.4-10.2) 06/12/21 14:28 Phosphorus 2.50 mg/dL (2.5-4.5) 06/12/21 14:28 Ferritin 295.3 ng/mL (30.0-300.0) 06/05/21 21:42 Total Bilirubin 0.40 mg/dL (0.1-1.2) 06/11/21 14:46 AST 25 units/L (5-40) 06/11/21 14:46 ALT 15 units/L (7-56) 06/11/21 14:46 Alkaline Phosphatase 55 units/L (35-129) 06/11/21 14:46 Lactate Dehydrogenase 167 units/L (91-180) 06/05/21 21:42 Total Creatine Kinase 149 units/L (55-170) 06/05/21 20:35 CK-MB (CK-2) 1.4 ng/mL (0.0-4.0) 06/05/21 20:35 CK-MB (CK-2) Rel Index 0.9 (0-4) 06/05/21 20:35 Troponin T 0.012 ng/mL (0.00-0.029) 06/05/21 20:35 C-Reactive Protein 6.00 mg/dL (0.00-1.30) H 06/05/21 21:42 NT-Pro-B Natriuret Pep 674.6 pg/mL (0-900) 06/05/21 21:42 Total Protein 5.8 g/dL (6.3-8.2) L 06/11/21 14:46 Albumin 2.4 g/dL (3.9-5) L 06/11/21 14:46 Albumin/Globulin Ratio 0.7 % 06/11/21 14:46 Procalcitonin 16.73 ng/mL (<0.15) 06/05/21 21:42 TSH 0.307 mlU/mL (0.270-4.200) 06/08/21 15:31 Free T4 1.05 ng/dL (0.76-1.46) 06/08/21 15:31 Urine Color Yellow (Yellow) 06/06/21 05:41 Urine Turbidity Clear (Clear) 06/06/21 05:41 Urine pH 5.0 (5.0-7.0) 06/06/21 05:41 Ur Specific [place] 1.039 (1.003-1.030) H 06/06/21 05:41 Urine Protein <15 mg/dl mg/dL (Negative) 06/06/21 05:41 Urine Glucose (UA) Neg mg/dL (Negative) 06/06/21 05:41 Urine Ketones Neg mg/dL (Negative) 06/06/21 05:41 Urine Blood Neg (Negative) 06/06/21 05:41 Urine Nitrite Neg (Negative) 06/06/21 05:41 Urine Bilirubin Neg (Negative) 06/06/21 05:41 Urine Urobilinogen < 2.0 mg/dL (<2.0) 06/06/21 05:41 Ur Leukocyte Esterase Neg (Negative) 06/06/21 05:41 Urine WBC (Auto) 1.0 /HPF (0.0-6.0) 06/06/21 05:41 Urine RBC (Auto) < 1.0 /HPF (0.0-6.0) 06/06/21 05:41 Hyaline Casts 1 /LPF 06/06/21 05:41 Urine Opiates Screen Negative 06/06/21 05:41 Urine Methadone Screen Negative 06/06/21 05:41 Ur Barbiturates Screen Negative 06/06/21 05:41 Ur Phencyclidine Scrn Negative 06/06/21 05:41 Ur Amphetamines Screen Negative 06/06/21 05:41 U Benzodiazepines Scrn Negative 06/06/21 05:41 Urine Cocaine Screen Negative 06/06/21 05:41 U Marijuana (THC) Screen Negative 06/06/21 05:41 Drugs of Abuse Note Disclamer 06/06/21 05:41 Plasma/Serum Alcohol < 0.01 % (0-0.07) 06/05/21 20:35 Coronavirus (PCR) Positive (Negative) A 06/06/21 09:00 Blood Type AB POSITIVE 06/05/21 20:35 Antibody Screen Negative 06/05/21 20:35 Microbiology: Microbiology 06/09/21 06:20 Peripheral/Venous Blood Culture - Final NO GROWTH AFTER 5 DAYS 06/09/21 05:41 Peripheral/Venous Blood Culture - Final NO GROWTH AFTER 5 DAYS 06/08/21 15:31 Peripheral/Venous Blood Culture - Final NO GROWTH AFTER 5 DAYS 06/08/21 15:31 Peripheral/Venous Blood Culture - Final NO GROWTH AFTER 5 DAYS Garcia/IV: Voiding Method Condom Catheter Active Medications - Current Medications Current Medications: Generic Name Dose Route Start Last Admin Trade Name Freq PRN Reason Stop Dose Admin Acetaminophen 650 mg 06/06/21 02:49 Acetaminophen 325 Mg Tab PO Q4H PRN Pain MILD(1-3)/Fever >100.5/LOPEZ Albuterol 2.5 mg 06/06/21 02:49 06/12/21 20:29 Albuterol 2.5 Mg/3 Ml Nebu IH 2.5 mg Q3HRT PRN Administration Shortness Of Breath Albuterol/Ipratropium 1 ampul 06/10/21 20:00 06/14/21 14:11 Ipratropium/Albuterol Sulfate 3 Ml Ampul.Neb IH 1 ampul TIDRT JACKY Administration Lipase/Protease/Amylase 1 each 06/07/21 16:00 Lipase 10,500/Protease 25,000/Amylase 43,750 (Units) Dr Caraballo FEEDTEVANGELIST PRN PRN For Clogged Feeding Tube Aspirin 325 mg 06/07/21 10:00 06/12/21 10:34 Aspirin 325 Mg Tab PO 325 mg QDAY JACKY Administration Atorvastatin Calcium 40 mg 06/06/21 22:00 06/14/21 00:05 Atorvastatin 40 Mg Tab PO 40 mg QHS JACKY Administration Famotidine 20 mg 06/10/21 22:00 06/14/21 10:14 Famotidine 20 Mg Tab FEEDTUBE 20 mg BID JACKY Administration Hydralazine HCl 10 mg 06/06/21 03:08 Hydralazine 20 Mg/1 Ml Inj IV Q6H PRN SBP >/=170; DBP >/=100 Hydromorphone HCl 0.5 mg 06/06/21 02:49 Hydromorphone 1 Mg/1 Ml Inj IV Q3H PRN Pain , Severe (7-10) Dextrose 1,000 mls @ 30 mls/hr 06/08/21 14:00 06/12/21 05:19 D5w IV 75 mls/hr DIRECT JACKY Administration Cefazolin Sodium 2 gm/ Sodium 100 mls @ 200 mls/hr 06/09/21 16:00 06/14/21 10:26 Chloride IV 06/22/21 16:29 200 mls/hr Q8H JACKY Administration Labetalol HCl 10 mg 06/06/21 02:49 Labetalol 20 Mg/4 Ml Inj IV Q5MIN PRN to maintain SBP < 180 Levetiracetam 500 mg 06/10/21 18:00 06/14/21 05:23 Levetiracetam 500 Mg/5 Ml Oral Liqd FEEDTUBE 500 mg Q12H JACKY Administration Lorazepam 1 mg 06/12/21 12:30 06/14/21 05:37 Lorazepam 2 Mg/Ml Vial IM 1 mg Q3H PRN Administration Agitation Morphine Sulfate 2 mg 06/06/21 02:49 Morphine 2 Mg/1 Ml Inj IV Q4H PRN Pain, Moderate (4-6) Ondansetron HCl 4 mg 06/06/21 02:49 Ondansetron 4 Mg/2 Ml Inj IV Q8H PRN Nausea And Vomiting Simple Syrup 15 ml 06/07/21 16:00 06/10/21 05:30 Simple Syrup 15 Ml FEEDTUBE 15 ml PRN PRN Administration Hypoglycemia Simple Syrup 30 ml 06/07/21 16:00 Simple Syrup 15 Ml FEEDTUBE PRN PRN Hypoglycemia Sodium Bicarbonate 325 mg 06/07/21 16:00 Sodium Bicarbonate 325 Mg Tab FEEDTUBE PRN PRN For Clogged Feeding Tube Sodium Chloride 10 ml 06/06/21 10:00 06/14/21 10:19 Sodium Chloride 0.9% 10 Ml Flush Syringe IV 10 ml BID JACKY Administration Sodium Chloride 10 ml 06/07/21 08:16 Sodium Chloride 0.9% 50 Ml Ivpb IV PRN PRN FLUSH Nutrition/Malnutrition Assess - Dietary Evaluation Nutrition/Malnutrition Findings: Nutrition Notes Start: 06/07/21 14:32 Freq: Status: Active Protocol: Document 06/10/21 14:23 BALDEMAR (Rec: 06/10/21 14:41 BALDEMAR [id number]) Nutrition Notes Initial or Follow up Reassessment Current Diagnosis Sepsis,Respiratory Failure Other Pertinent Diagnosis COVID-19, Bilateral Pneumonia, Bacteremia, Acute Encephalopathy. Current Diet TF- Vital AF @ 40 ml/hr (since L 06/06). Labs/Tests 06/10: Na 154, K 3.5, Cl 117.1 , Crea 0.6, Glu 65. Pertinent Medications 06/10: Nutritionally unremarkable. Height 5 ft 9 in Weight 62.596 kg [place] Body Weight (kg) 72.72 BMI 20.3 Weight change and time frame No body weight change reported in 3 days. Weight Status Appropriate Subjective/Other Information RD consult on routine F/U on TF tolerance. TF well tolerated, according to RN notes. Pt ready to be discharged to SNF. Percent of energy/protein needs met: Prescribed Vital AF @ 40 ml/hr provides for energy/protein needs (1,150 Kcal/72 g) during LOS, 66% Kcal; 95% AA. Burn Absent Trauma Absent GI Symptoms None Difficulty In Swallowing,Chewing Food Allergy No Skin Integrity/Comment Clear, warm, dry. Current % PO Other Minimum of two criteria No #1 Nutrition Diagnosis Inadequate oral intake Diagnosis Progress(for reassessment Continues documentation) Is patient on ventilator? No Is Patient Ambulatory and/or Out of Bed Yes REE-([facility]-ambulatory/OOB) [ 1737.242 [id number]] Calculation Used for Recommendations [facility] Additional Notes Protein: 1-1.2 g/Kg; 63-76 g/ day. Fluids: 1 ml/Kcal, or as per MD. Nutrition Intervention Nutrition Support: Continue Vital AF @ 40 ml/hr. Flush: 250 ml water Q 4 hr, or as per MD. Kcal 1,150 Protein (gm) 72 Carbohydrates (gm) 106 Fat (gm) 52 Fluid (mL) 777 Fiber (gm) 5 % RDI: 66% Kcal; 95% AA. Goal #1 Provide at least 75% of energy /protein needs through Enteral Feeding during LOS. Follow-Up By: 06/17/21 Additional Comments Continue monitoring TF tolerance and BM.
--- NOTE | 2021-06-14 18:45 | Event Note ---
Date: 06/14/21 06/14/2021 ;I called patient's son RICK/HUMPHREY Burgos at [phone] and discussed in detail patient's condition, tests and reports, procedures, consultants recommendation, treatment and discharge planning. I also informed him that patient most probably will be discharged tomorrow if stable, he had many questions, answered all of them I encouraged him to call back if he has any new concerns I also encouraged him to call case management tomorrow morning if he has any concerns or requests at discharge. He verbalized understanding and was appreciative of my call
[2021-06-15] MEDS: DEXTROSE 5% IN WATER 1,000 ML IV SCH (04:48)
[2021-06-15] MEDS: levETIRAcetam 500 MG/5 ML ORAL LIQD FEEDTUBE SCH (06:31)
[2021-06-15 07:36] LABS: Blood Urea Nitrogen 15 mg/dL (9-20); Hemolysis Index 3
--- NOTE | 2021-06-15 07:37 | Discharge Summary ---
Providers - Providers Date of Admission: 06/06/21 02:49 Date of discharge: 06/15/21 Attending physician: AARON FIGUEROA 06/05/21 21:14 Speech Therapy Evaluation and Treat [CONS] Urgent Reason For Exam: Failed swallow screen 06/06/21 Consult to Physician [CONS] Routine Comment: Consulting Provider: FUENTES NATARAJAN Physician Instructions: Reason For Exam: stroke 06/06/21 02:49 Consult to Physician [CONS] Routine Comment: Consulting Provider: NATHANIEL FONTENOT Physician Instructions: Reason For Exam: covid Occupational Therapy Evaluate and Treat [CONS] Routine Comment: Reason For Exam: Neuro deficits Physical Therapy Evaluation and Treat [CONS] Routine Comment: Reason For Exam: Neuro deficits 06/06/21 06:04 Speech Therapy Evaluation and Treat [CONS] Urgent Reason For Exam: FAILED SWALLOW SCREENING 06/08/21 14:44 Consult to Physician [CONS] Routine Comment: Consulting Provider: AUGUST BREEN Physician Instructions: Reason For Exam: PEG tube pulled out 06/08/21 15:09 Consult to Physician [CONS] Routine Comment: Consulting Provider: ANDERS CARTY Physician Instructions: Reason For Exam: hypernatremia 06/09/21 10:29 Consult to Case Management [CONS] Routine Services Needed at Discharge: Home Health Services Notified:: cm Additional Physician Instructions: Victoria Calle MD [facility] ([facility]) M: [phone] O: [phone] F: [phone] Outpatient parenteral antibiotic therapy orders Diagnosis: MSSA bacteremia Antibiotic administration: Ancef 2g q8h until 06/22/2021 Line: midline Lab monitoring: CBC with differential, BUN, creatinine, LFTs once per week preferably on Sunday or Sunday For critical labs, call office: [phone] Victoria Calle 06/12/21 12:48 Physical Therapy Evaluation and Treat [CONS] Routine Comment: Reason For Exam: Debility Primary care physician: SADIQ MEANS Hospitalization Condition: Serious Hospital course: --Acute encephalopathy (improving) most likely secondary to pneumonia sepsis and suspected seizure versus stroke More alert and oriented today On 2 L nasal cannula oxygen , Wants to go home Home O2 evaluation, home O2 set up --Septic Shock POA/Improved --Staph aureus bacteremia, cont vancomycin, reordered blood Cx --COVID-19 infection - Family says that he is not vaccinated against COVID-19 - Oxygen via nasal cannula 2 L/min - DuoNeb by nebulizer every 4 hours. -Initiated on remdesivir -Remdesivir day 5 over --Acute hypoxic respiratory failure, requiring supplemental oxygen Likely due to underlying Covid pneumonia Currently patient is on 2 L nasal cannula oxygen albuterol via nebulizer every 4 hours as needed --Chronic Dysphagia with PEg malfunction - dysphagia, slurred speech since brain surgery Feb 2021 - pulled out PEG - consulted GI, replaced the tube -PEG tube replaced 06/09/2021 --Suspected Stroke - Patient is seen and evaluated by telemetry neurology for stroke versus seizure. -Continue aspirin 81 mg and Lipitor 40 mg p.o. daily. -Ordered for MRI of the brain and MRA of the brain and neck with and without contrast (PHY THERAPIST shunt is MRI safe per daughter). - Echocardiogram with preserved EF - consulted neurology - PT OT following -- Lactic acidosis, likely due to underlying sepsis -cont iv fluid. Rocephin 2 g IV daily. vancomycin IV daily. 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 - please refer to hospital course 06/06 encounter. / Disposition: 06 HOME HEALTH CARE SERVICE Final Discharge Diagnosis (Prints w/discharge instructions): Acute metabolic encephalopathy improved. COVID-19 infection. staph aureus bacteremia on long- term antibiotics. Septic shock/resolved. Chronic dysphagia. s/p PEG placement. History of brain surgery[last procedure February 2021]. H ypokalemia/resolved. Hypernatremia/resolved. Severe protein calorie malnutrition. Hypoalbuminemia/Albumin 2.4 Time spent for discharge: 45 min Core Measure Documentation - Palliative Care Palliative Care/ Comfort Measures: Not Applicable - Core Measures Any of the following diagnoses?: none Exam - Constitutional Vitals: Temp Pulse Resp BP Pulse Ox 98.4 F 109 H 18 120/76 94 06/15/21 04:27 06/15/21 04:26 06/15/21 04:26 06/15/21 04:06/15/21 04:26 General appearance: Present: no acute distress, other (Slightly confused) - EENT Eyes: Present: PERRL, EOM intact - Neck Neck: Present: supple, normal ROM - Respiratory Respiratory effort: normal Respiratory: bilateral: diminished, negative: rales, rhonchi, wheezing - Cardiovascular Rhythm: regular Heart Sounds: Present: S1 & S2 - Extremities Extremities: no ischemia, No edema - Abdominal General gastrointestinal: Present: soft, non-tender, non-distended, other (PEG tube in place) - Integumentary Integumentary: Present: clear, warm - Musculoskeletal Musculoskeletal: strength equal bilaterally, generalized weakness - Psychiatric Psychiatric: cooperative, other (Confused) - Neurologic Neurologic: moves all extremities Plan Activity: advance as tolerated, fall precautions Diet: other (She will feeds per protocol) Additional Instructions: Patient has long-term antibiotics [Ancef 2 g every 8 hours recommended by ID ]stop date 06/22/2021, case management has set up. Fall precautions. Aspiration precautions. Advised to follow primary care physician within 1 week, private neurologist per schedule, ID in 2 weeks. If patient has worsening symptoms contact MD or taking to the nearest emergency room. Follow up with: SADIQ MEANS MD [Primary Care Provider] - 3-5 Days ROXIE CALLE MD [Staff Physician] - 14 Days Prescriptions: levETIRAcetam [Keppra] 500 mg FEEDTUBE Q12H 30 Days oral.liqd Lipase/Protease/Amylase [Pancreaze Dr 10,500 Unit] 1 each FEEDTUBE PRN PRN #30 capsule PRN Reason: For Clogged Feeding Tube Famotidine [Pepcid] 20 mg FEEDTUBE BID #60 tablet oxyCODONE /ACETAMINOPHEN [Percocet 5/325 mg] 1 tab PO BID PRN #15 PRN Reason: Pain , Severe (7-10) Sodium Bicarbonate 325 mg FEEDTUBE PRN PRN #30 tablet PRN Reason: For Clogged Feeding Tube Ascorbic Acid [Vitamin C Oral Liq] 500 mg PO BID 15 Days ml Cholecalciferol Vit D3 [Vitamin D3 1,000 UNIT TAB] 1,000 unit PO QDAY #15 tablet Zinc Sulfate [Zinc] 220 mg PO BID #30
[2021-06-15 07:41] LABS: BUN/Creatinine Ratio 30
[2021-06-15] MEDS: IPRATROPIUM/ALBUTEROL SULFATE 3 ML AMPUL.NEB IH SCH ×3 (09:39→20:26)
[2021-06-15] MEDS: ASPIRIN 325 MG TAB PO SCH (09:48)
[2021-06-15] MEDS: FAMOTIDINE 20 MG TAB FEEDTUBE SCH (09:49)
[2021-06-15 22:19] VITALS: BP 129/69
== END 2021-06-15 22:40 | disposition home health service (06) | DRG 871 ==
LOC: ED 20:16 → CC1 06-06 02:49 → 3A 06-06 14:25
PROVIDERS: ADMIT Hospitalist; ATTEND Internal Medicine
PROC: 4A033R1 Measurement of Arterial Saturation, Peripheral, Percutaneous Approach (ICD-10-PCS; principal; 2021-06-06)
PROC: 06HY33Z Insertion of Infusion Device into Lower Vein, Percutaneous Approach (ICD-10-PCS; 2021-06-06)
PROC: B54BZZA Ultrasonography of Right Lower Extremity Veins, Guidance (ICD-10-PCS; 2021-06-06)
PROC: XW033E5 Introduction of Remdesivir Anti-infective into Peripheral Vein, Percutaneous Approach, New Technology Group 5 (ICD-10-PCS; 2021-06-07)
PROC: 0DP6XUZ Removal of Feeding Device from Stomach, External Approach (ICD-10-PCS; 2021-06-09)
PROC: 0DH63UZ Insertion of Feeding Device into Stomach, Percutaneous Approach (ICD-10-PCS; 2021-06-09)
PROC: 02HV33Z Insertion of Infusion Device into Superior Vena Cava, Percutaneous Approach (ICD-10-PCS; 2021-06-15)
DX: A41.01 Sepsis due to Methicillin susceptible Staphylococcus aureus (principal); U07.1 COVID-19; J12.82 Pneumonia due to coronavirus disease 2019; J96.01 Acute respiratory failure with hypoxia; G93.41 Metabolic encephalopathy; R65.21 Severe sepsis with septic shock; E43 Unspecified severe protein-calorie malnutrition; E87.0 Hyperosmolality and hypernatremia; K94.23 Gastrostomy malfunction; Z85.841 Personal history of malignant neoplasm of brain; Z86.73 Personal history of transient ischemic attack (TIA), and cerebral infarction without residual deficits; R13.10 Dysphagia, unspecified; E87.5 Hyperkalemia; Z68.20 Body mass index [BMI] 20.0-20.9, adult; Z82.49 Family history of ischemic heart disease and other diseases of the circulatory system; Y83.8 Other surgical procedures as the cause of abnormal reaction of the patient, or of later complication, without mention of misadventure at the time of the procedure; E86.0 Dehydration
CPT/HCPCS: 31720; 36415; 70450; 70496; 70498; 71045; 80048; 80053; 80307; 80320; 81001; 82140; 82550; 82553; 82728; 82803; 82962; 83615; 83880; 84100; 84145; 84439; 84443; 84484; 85007; 85025; 85379; 85610; 85670; 85730; 86140; 86850; 86900; 86901; 87040; 87076; 87186; 93005; 93010; 93306; 94640; 94760; G0378; J2354; J3490; J7060; C8929; G0480; J0456; J0690; J0696; J1100; J1953; J2060; J2270; J3370; J7040; J7042; J7050; J7070; Q9967; U0003

== ENCOUNTER 2021-07-25 21:37 | Emergency (ER) | payer MEDICARE ==
--- NOTE | 2021-07-25 22:19 | Emergency Department Report ---
HPI - General Chief Complaint: Tube Replacement Time Seen by Provider: 07/25/21 22:10 - HPI HPI: Room 23 The patient is a 80-year-old male present with chief complaint of feeding tube dislodgment. Patient states approximate 1 hour prior to arrival somehow his feeding tube came out. Patient does not recall getting snagged on anything but states he suddenly realized he had feeding tube in his hand. Patient currently denies having any complaints ED Past Medical Hx - Past Medical History Hx HIV: No 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, COVID, SEPSIS, PNEUMONIA - Surgical History Additional Surgical History: shunt in brain secondary to tumor being placed, feeding tube - Family History Family history: no significant - Social History Smoking Status: Never Smoker Substance Use Type: None - Medications Home Medications: Home Medications Medication Instructions Recorded Confirmed Last Taken Type Melatonin [Melatonin 5MG TAB] 2.5 mg PO HS 06/07/21 06/07/21 Unknown History Midodrine [Proamatine] 5 mg PO TID 06/07/21 06/07/21 Unknown History Ascorbic Acid [Vitamin C Oral Liq] 500 mg PO BID 15 Days ml 06/15/21 Unknown Rx Cholecalciferol Vit D3 [Vitamin D3 1,000 unit PO QDAY #15 tablet 06/15/21 Unknown Rx 1,000 UNIT TAB] Famotidine [Pepcid] 20 mg FEEDTUBE BID #60 tablet 06/15/21 Unknown Rx Sodium Bicarbonate 325 mg FEEDTUBE PRN PRN #30 tablet 06/15/21 Unknown Rx Zinc Sulfate [Zinc] 220 mg PO BID #30 06/15/21 Unknown Rx levETIRAcetam [Keppra] 500 mg FEEDTUBE Q12H 30 Days 06/15/21 Unknown Rx oral.liqd oxyCODONE /ACETAMINOPHEN [Percocet 1 tab PO BID PRN #15 06/15/21 Unknown Rx 5/325 mg] Benzonatate [Tessalon Perles] 100 mg PO Q8HR PRN #30 cap 06/20/21 Unknown Rx Cetirizine HCl [Zyrtec 10mg tab] 10 mg PO DAILY PRN #14 06/20/21 Unknown Rx ED Review of Systems ROS: Stated complaint: PEG TUBE CAME OUT Other details as noted in HPI Constitutional: no symptoms reported Eyes: denies: eye pain ENT: denies: throat pain Respiratory: no symptoms reported Cardiovascular: denies: chest pain Endocrine: no symptoms reported Gastrointestinal: other (Feeding tube dislodgment). denies: abdominal pain Genitourinary: denies: dysuria Musculoskeletal: denies: back pain Neurological: denies: headache Physical Exam - Physical Exam Vital Signs: Vital Signs 07/25/21 21:42 Temperature 97.8 F Pulse Rate 92 H Respiratory 18 Rate Blood Pressure 107/68 O2 Sat by Pulse 97 Oximetry Physical Exam: GENERAL: The patient is well-developed well-nourished male sitting on stretcher not appearing to be in acute distress. [] HEENT: Normocephalic. Atraumatic. Extraocular motions are intact. Patient has moist mucous membranes. NECK: Supple. Trachea midline CHEST/LUNGS: There is no respiratory distress noted. HEART/CARDIOVASCULAR: Regular. There is no tachycardia. There is no gallop rub or murmur. ABDOMEN: Abdomen is soft, nontender. Patient has normal bowel sounds. There is no abdominal distention. SKIN: There is no rash. There is no edema. There is no diaphoresis. NEURO: The patient is awake, alert, and oriented. The patient is cooperative. The patient has normal speech. GCS 15 MUSCULOSKELETAL: There is no evidence of acute injury. ED Course Vital Signs 07/25/21 21:42 Temperature 97.8 F Pulse Rate 92 H Respiratory 18 Rate Blood Pressure 107/68 O2 Sat by Pulse 97 Oximetry ED Medical Decision Making - Radiology Data Radiology results: report reviewed (G-tube x-ray study), image reviewed (G-tube x-ray study) interpreted by me: G-tube x-ray study-in appropriate position. Contrast present intraluminally [facility] [address] [place] [address] XRay Report Signed Patient: ABBY DEVLIN MR#: [id number] : 1940 Acct:[id number] Age/Sex: 80 / M ADM Date: 07/25/21 Loc: ED Attending Dr: Ordering Physician: BRENANN JAEGER MD Date of Service: 07/25/21 Procedure(s): XR g-tube study Accession Number(s): [id number] cc: BRENNAN JAEGER MD Fluoro Time In Oh nutes: XR G-TUBE STUDY INDICATION / CLINICAL INFORMATION: Status post feeding tube replacement. COMPARISON: None available. FINDINGS: Initial image demonstrates a gastrostomy tube with the tip overlying the junction of the gastric body and antrum. Additional tubing overlies the left upper to mid abdomen. The subsequent image demonstrates contrast in the stomach and proximal small bowel without evidence of obstruction or extravasation. No acute abnormality is seen. IMPRESSION: Gastrostomy tube without complication. Signer Name: Alexander Potts MD Signed: 07/25/2021 11:27 PM Workstation Name: [id number] Transcribed By: RT Dictated By: Alexander Potts MD Electronically Authenticated By: Alexander Potts MD Signed Date/Time: 07/25/212326 DD/ 24 TD/TT: - Differential Diagnosis Feeding tube dislodgment Critical care attestation.: If time is entered above; I have spent that time in minutes in the direct care of this critically ill patient, excluding procedure time. ED Disposition Clinical Impression: Encounter for feeding tube placement Disposition: 01 HOME / SELF CARE / HOMELESS Is pt being admited?: No Does the pt Need Aspirin: No Condition: Stable Instructions: How to Care for a Feeding Tube Additional Instructions: Return to the emergency department should you develop worsening symptoms, inability to tolerate food or liquids, high fever or any other concerns Time of Disposition: 23:02
--- NOTE | 2021-07-25 23:32 | XRay Report ---
XR G-TUBE STUDY INDICATION / CLINICAL INFORMATION: Status post feeding tube replacement. COMPARISON: None available. FINDINGS: Initial image demonstrates a gastrostomy tube with the tip overlying the junction of the gastric body and antrum. Additional tubing overlies the left upper to mid abdomen. The subsequent image demonstrates contrast in the stomach and proximal small bowel without evidence o f obstruction or extravasation. No acute abnormality is seen. IMPRESSION: Gastrostomy tube without complication. Signer Name: Alexander Potts MD Signed: 07/25/2021 11:27 PM Workstation Name: [id number]
[2021-07-26 00:40] VITALS: BP 113/69
== END 2021-07-26 00:24 | disposition home or self-care (01) ==
LOC: ED 21:37
DX: Z43.1 Encounter for attention to gastrostomy (principal)
CPT/HCPCS: 43762; 74018; 99283; Q9967; 99282

== ENCOUNTER 2021-08-21 18:40 | Emergency (ER) | payer MEDICARE ==
--- NOTE | 2021-08-22 03:08 | Emergency Department Report ---
ED General Adult HPI - General Chief complaint: Tube Replacement Stated complaint: PEG TUBE CLOGGED Time Seen by Provider: 08/22/21 02:32 Source: patient, family Mode of arrival: Ambulatory Limitations: No Limitations - History of Present Illness Initial comments: 80-year-old male [facility] department complaining of having a PEG tube complications of the last 3 to 4 hours of unknown etiology. No pain fevers, chills, sweats. No nausea vomiting is appreciated. -: Gradual Consistency: constant Improves with: none Worsens with: none Associated Symptoms: denies: chest pain, diaphoresis, loss of appetite, malaise, nausea/vomiting, shortness of breath, syncope, weakness - Related Data Home Medications Medication Instructions Recorded Confirmed Last Taken Melatonin [Melatonin 5MG TAB] 2.5 mg PO HS 06/07/21 06/07/21 Unknown Midodrine [Proamatine] 5 mg PO TID 06/07/21 06/07/21 Unknown Previous Rx's Medication Instructions Recorded Last Taken Type Ascorbic Acid [Vitamin C Oral Liq] 500 mg PO BID 15 Days ml 06/15/21 Unknown Rx Cholecalciferol Vit D3 [Vitamin D3 1,000 unit PO QDAY #15 tablet 06/15/21 Unknown Rx 1,000 UNIT TAB] Famotidine [Pepcid] 20 mg FEEDTUBE BID #60 tablet 06/15/21 Unknown Rx Sodium Bicarbonate 325 mg FEEDTUBE PRN PRN #30 tablet 06/15/21 Unknown Rx Zinc Sulfate [Zinc] 220 mg PO BID #30 06/15/21 Unknown Rx levETIRAcetam [Keppra] 500 mg FEEDTUBE Q12H 30 Days 06/15/21 Unknown Rx oral.liqd oxyCODONE /ACETAMINOPHEN [Percocet 1 tab PO BID PRN #15 06/15/21 Unknown Rx 5/325 mg] Benzonatate [Tessalon Perles] 100 mg PO Q8HR PRN #30 cap 06/20/21 Unknown Rx Cetirizine HCl [Zyrtec 10mg tab] 10 mg PO DAILY PRN #14 06/20/21 Unknown Rx Allergies Allergy/AdvReac Type Severity Reaction Status Date / Time No Known Allergies Allergy Verified 06/07/21 12:22 ED Review of Systems ROS: Stated complaint: PEG TUBE CLOGGED Other details as noted in HPI Comment: All other systems reviewed and negative ED Past Medical Hx - Past Medical History Hx HIV: No 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, COVID, SEPSIS, PNEUMONIA - Surgical History Additional Surgical History: shunt in brain secondary to tumor being placed, feeding tube - Social History Smoking Status: Unknown if ever smoked Substance Use Type: None - Medications Home Medications: Home Medications Medication Instructions Recorded Confirmed Last Taken Type Melatonin [Melatonin 5MG TAB] 2.5 mg PO HS 06/07/21 06/07/21 Unknown History Midodrine [Proamatine] 5 mg PO TID 06/07/21 06/07/21 Unknown History Ascorbic Acid [Vitamin C Oral Liq] 500 mg PO BID 15 Days ml 06/15/21 Unknown Rx Cholecalciferol Vit D3 [Vitamin D3 1,000 unit PO QDAY #15 tablet 06/15/21 Unknown Rx 1,000 UNIT TAB] Famotidine [Pepcid] 20 mg FEEDTUBE BID #60 tablet 06/15/21 Unknown Rx Sodium Bicarbonate 325 mg FEEDTUBE PRN PRN #30 tablet 06/15/21 Unknown Rx Zinc Sulfate [Zinc] 220 mg PO BID #30 06/15/21 Unknown Rx levETIRAcetam [Keppra] 500 mg FEEDTUBE Q12H 30 Days 06/15/21 Unknown Rx oral.liqd oxyCODONE /ACETAMINOPHEN [Percocet 1 tab PO BID PRN #15 06/15/21 Unknown Rx 5/325 mg] Benzonatate [Tessalon Perles] 100 mg PO Q8HR PRN #30 cap 06/20/21 Unknown Rx Cetirizine HCl [Zyrtec 10mg tab] 10 mg PO DAILY PRN #14 06/20/21 Unknown Rx ED Physical Exam - General Limitations: No Limitations General appearance: alert, in no apparent distress - Head Head exam: Present: atraumatic, normocephalic - Eye Eye exam: Present: normal appearance, PERRL, EOMI Pupils: Present: normal accommodation - ENT ENT exam: Present: normal exam, normal orophraynx, mucous membranes moist, TM's normal bilaterally - Neck Neck exam: Present: normal inspection, full ROM - Respiratory Respiratory exam: Present: normal lung sounds bilaterally. Absent: respiratory distress, rhonchi, accessory muscle use, decreased breath sounds - Cardiovascular Cardiovascular Exam: Present: regular rate, normal rhythm. Absent: systolic murmur, diastolic murmur, rubs, gallop - GI/Abdominal GI/Abdominal exam: Present: soft, normal bowel sounds. Absent: tenderness, guarding, hyperactive bowel sounds, hypoactive bowel sounds, organomegaly, mass - Rectal Rectal exam: Present: deferred - Extremities Exam Extremities exam: Present: normal inspection, normal capillary refill - Back Exam Back exam: Present: normal inspection. Absent: CVA tenderness (R), CVA tenderness (L) - Neurological Exam Neurological exam: Present: alert, oriented X3, CN II-XII intact - Psychiatric Psychiatric exam: Present: normal affect, normal mood. Absent: anxious, flat affect - Skin Skin exam: Present: warm, dry, intact, normal color. Absent: rash ED Course Vital Signs 08/21/21 19:08 Temperature 96.4 F L Pulse Rate 91 H Respiratory 16 Rate Blood Pressure 110/66 O2 Sat by Pulse 96 Oximetry ED Medical Decision Making - Medical Decision Making 72-year-old presents emerged part with type II issue PEG tube was evaluated in declog with a rinse/flush with and now flowing with no complications. Critical care attestation.: If time is entered above; I have spent that time in minutes in the direct care of this critically ill patient, excluding procedure time. ED Disposition Clinical Impression: PEG tube malfunction Disposition: 01 HOME / SELF CARE / HOMELESS Is pt being admited?: No Does the pt Need Aspirin: No Condition: Stable Instructions: How to Care for a Feeding Tube, PEG Tube Home Guide Referrals: PRIMARY CARE, [Referring] - 3-5 Days
[2021-08-22 04:55] VITALS: BP 115/69
== END 2021-08-22 03:11 | disposition home or self-care (01) ==
LOC: ED 18:40
DX: K94.23 Gastrostomy malfunction (principal)
CPT/HCPCS: 99282

== ENCOUNTER 2021-08-31 16:22 | Emergency (ER) | payer MEDICARE ==
--- NOTE | 2021-09-01 00:57 | Emergency Department Report ---
ED General Adult HPI - General Chief complaint: Tube Replacement Stated complaint: TUBE BROKEN Time Seen by Provider: 08/31/21 19:48 Source: patient Mode of arrival: Ambulatory Limitations: No Limitations - History of Present Illness Initial comments: Mr. Christopher Quesada is a 80-year-old male feeding tube has been placed for several weeks presents emergency department seeking further evaluation for a feeding tube malfunction. The patient and the son seem to think that the feeding tube is no longer functional or and has become dislodged requiring a new feeding tube to be placed which is the reason presents emerged department today. They have been noticing some fluid leaking around the tube. No fever, chills, sweats. No chest pain palpitation per the son's recollection. M unclog at that time return to his normal baseline patient stated at that time negative discharge home but did notice some fluid around the wound has been and feels the problem has been continuing rocael Flores was seen emergency department earlier this month for similar instances feeding tube was -: Gradual Quality: dull Consistency: constant Improves with: none Worsens with: none Associated Symptoms: denies: loss of appetite, malaise, nausea/vomiting - Related Data Home Medications Medication Instructions Recorded Confirmed Last Taken Melatonin [Melatonin 5MG TAB] 2.5 mg PO HS 06/07/21 06/07/21 Unknown Midodrine [Proamatine] 5 mg PO TID 06/07/21 06/07/21 Unknown Previous Rx's Medication Instructions Recorded Last Taken Type Ascorbic Acid [Vitamin C Oral Liq] 500 mg PO BID 15 Days ml 06/15/21 Unknown Rx Cholecalciferol Vit D3 [Vitamin D3 1,000 unit PO QDAY #15 tablet 06/15/21 Unknown Rx 1,000 UNIT TAB] Famotidine [Pepcid] 20 mg FEEDTUBE BID #60 tablet 06/15/21 Unknown Rx Sodium Bicarbonate 325 mg FEEDTUBE PRN PRN #30 tablet 06/15/21 Unknown Rx Zinc Sulfate [Zinc] 220 mg PO BID #30 06/15/21 Unknown Rx levETIRAcetam [Keppra] 500 mg FEEDTUBE Q12H 30 Days 06/15/21 Unknown Rx oral.liqd oxyCODONE /ACETAMINOPHEN [Percocet 1 tab PO BID PRN #15 06/15/21 Unknown Rx 5/325 mg] Benzonatate [Tessalon Perles] 100 mg PO Q8HR PRN #30 cap 06/20/21 Unknown Rx Cetirizine HCl [Zyrtec 10mg tab] 10 mg PO DAILY PRN #14 06/20/21 Unknown Rx Mupirocin [Bactroban 2%] 1 applic TP TID #1 tube 09/01/21 Unknown Rx cephALEXin [Keflex] 500 mg PO Q8HR #21 cap 09/01/21 Unknown Rx Allergies Allergy/AdvReac Type Severity Reaction Status Date / Time No Known Allergies Allergy Verified 06/07/21 12:22 ED Review of Systems ROS: Stated complaint: TUBE BROKEN Other details as noted in HPI Comment: All other systems reviewed and negative ED Past Medical Hx - Past Medical History Hx HIV: No 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, COVID, SEPSIS, PNEUMONIA - Surgical History Additional Surgical History: shunt in brain secondary to tumor being placed, feeding tube - Social History Smoking Status: Unknown if ever smoked Substance Use Type: None - Medications Home Medications: Home Medications Medication Instructions Recorded Confirmed Last Taken Type Melatonin [Melatonin 5MG TAB] 2.5 mg PO HS 06/07/21 06/07/21 Unknown History Midodrine [Proamatine] 5 mg PO TID 06/07/21 06/07/21 Unknown History Ascorbic Acid [Vitamin C Oral Liq] 500 mg PO BID 15 Days ml 06/15/21 Unknown Rx Cholecalciferol Vit D3 [Vitamin D3 1,000 unit PO QDAY #15 tablet 06/15/21 Unk nown Rx 1,000 UNIT TAB] Famotidine [Pepcid] 20 mg FEEDTUBE BID #60 tablet 06/15/21 Unknown Rx Sodium Bicarbonate 325 mg FEEDTUBE PRN PRN #30 tablet 06/15/21 Unknown Rx Zinc Sulfate [Zinc] 220 mg PO BID #30 06/15/21 Unknown Rx levETIRAcetam [Keppra] 500 mg FEEDTUBE Q12H 30 Days 06/15/21 Unknown Rx oral.liqd oxyCODONE /ACETAMINOPHEN [Percocet 1 tab PO BID PRN #15 06/15/21 Unknown Rx 5/325 mg] Benzonatate [Tessalon Perles] 100 mg PO Q8HR PRN #30 cap 06/20/21 Unknown Rx Cetirizine HCl [Zyrtec 10mg tab] 10 mg PO DAILY PRN #14 06/20/21 Unknown Rx Mupirocin [Bactroban 2%] 1 applic TP TID #1 tube 09/01/21 Unknown Rx cephALEXin [Keflex] 500 mg PO Q8HR #21 cap 09/01/21 Unknown Rx ED Physical Exam - General Limitations: No Limitations General appearance: alert, in no apparent distress - Head Head exam: Present: atraumatic, normocephalic - Eye Eye exam: Present: normal appearance - ENT ENT exam: Present: mucous membranes moist - Neck Neck exam: Present: normal inspection - Respiratory Respiratory exam: Present: normal lung sounds bilaterally. Absent: respiratory distress - Cardiovascular Cardiovascular Exam: Present: regular rate, normal rhythm. Absent: systolic murmur, diastolic murmur, rubs, gallop - GI/Abdominal GI/Abdominal exam: Present: soft, tenderness (Feeding tube in place chest to the right of midline and medially located. Feels to be secure. There is some excoriation around the entry site and a small area around the region as well.), normal bowel sounds - Rectal Rectal exam: Present: deferred - Extremities Exam Extremities exam: Present: normal inspection - Back Exam Back exam: Present: normal inspection - Neurological Exam Neurological exam: Present: alert, oriented X3 - Psychiatric Psychiatric exam: Present: normal affect, normal mood - Skin Skin exam: Present: warm, dry, intact, normal color. Absent: rash ED Course Vital Signs 08/31/21 17:08 Temperature 97.4 F L Pulse Rate 92 H Respiratory 16 Rate Blood Pressure 112/71 [Left] O2 Sat by Pulse 98 Oximetry ED Medical Decision Making - Medical Decision Making 72-year-old male with feeding tube in place for several weeks presents emerged department with a suspected feeding tube issue. Upon further evaluation. We found no issues with his current feeding tube if last normally and the balloon was in place. The wound the feeding tube did not become dislodged with sitting standing laying and moving on each side of the bed laying on each side of the body. Feeding tube did not become dislodged with a mild to moderate poor eye remained secure. The area was irrigated and cleaned and a medicated bandage was placed on the wound site he was advised to follow-up with wound care and discussed the importance of maintaining sats follow-up. At this present time no new feeding tube is needed as the current feeding tube is in place and and functional no reasons to support the risk of changing a properly functioning feeding tube advised patient to follow-up with the surgeon or GI provider placed a feeding tube if he would like a different version Critical care attestation.: If time is entered above; I have spent that time in minutes in the direct care of this critically ill patient, excluding procedure time. ED Disposition Clinical Impression: PEG tube malfunction Disposition: HOME / SELF CARE / HOMELESS Is pt being admited?: No Does the pt Need Aspirin: No Condition: Stable Instructions: How to Care for a Feeding Tube, PEG Tube Home Guide, Gastrostomy Tube Home Guide, Adult Additional Instructions: He was seen emergency department today for suspected feeding tube issue. Upon vigorous evaluation and manipulation of the feeding tube we found no issues with the feeding tube itself. Feeding tube is 100% functional. Secured in place and not becoming dislodged with manipulation. Is tolerating all of the irrigation that was provided in the emergency department without extravasation. You do have an impending wound around the feeding tube itself for reasons unknown. Please be sure that you are caring for the feeding tube in the in the stomal area properly to prevent any infectious process or inflammatory process which can promote fluid discharge, tenderness, wounds, skin breakdown Prescriptions: Mupirocin [Bactroban 2%] 1 applic TP TID #1 tube cephALEXin [Keflex] 500 mg PO Q8HR #21 cap Referrals: PRIMARY CARE,MD [Primary Care Provider] - 3-5 Days (Please be sure to follow-up with your primary care provider and the doctor and who placed the feeding tube for reevaluation.)
[2021-09-01 01:35] VITALS: BP 116/77
== END 2021-09-01 01:35 | disposition home or self-care (01) ==
LOC: ED 16:22
DX: K94.23 Gastrostomy malfunction (principal)
CPT/HCPCS: 99282

== ENCOUNTER 2021-11-02 15:32 | Outpatient (CLI) | payer MEDICARE ==
[2021-11-02 16:31] LABS: Basophils % (Auto) 0.4 % (0.0-1.8); Eosinophils # (Auto) 0.2 K/mm3 (0.0-0.4); Eosinophils % (Auto) 2.1 % (0.0-4.3); Hematocrit 34.8 % (35.5-45.6); Hemoglobin 11.4 gm/dl (11.8-15.2); Lymphocytes % (Auto) 12.1 % (13.4-35.0); Mean Corpuscular HGB Conc 33 % (32-34); Mean Corpuscular Volume 84 fl (84-94); Monocytes # (Auto) 0.5 K/mm3 (0.0-0.8); Monocytes % (Auto) 6.9 % (0.0-7.3); Platelet Count 234 K/mm3 (140-440); Red Blood Count 4.16 M/mm3 (3.65-5.03)
[2021-11-02 17:33] LABS: Alanine Aminotransferase 15 units/L (7-56); Albumin 3.7 g/dL (3.9-5); BUN/Creatinine Ratio 30; Blood Urea Nitrogen 30 mg/dL (9-20); Calcium 10.1 mg/dL (8.4-10.2); Hemolysis Index 12
[2021-11-02 18:17] LABS: Chol/HDL Ratio 2.45 %; HDL Cholesterol 60 mg/dL (40-59); LDL Cholesterol,Direct 80 mg/dL (50-130)
[2021-11-07 15:23] LABS: Vitamin D, 25-OH, D2 <4 ng/mL
== END 2021-11-02 15:33 | disposition home or self-care (01) ==
LOC: LABHHL 15:32
PROVIDERS: ATTEND Internal Medicine
DX: D72.829 Elevated white blood cell count, unspecified (principal); R73.9 Hyperglycemia, unspecified; E55.9 Vitamin D deficiency, unspecified; N28.9 Disorder of kidney and ureter, unspecified; I10 Essential (primary) hypertension
CPT/HCPCS: 36415; 80053; 80061; 82306; 83036; 84443; 85025